=== PATIENT | male | born 1970 | race Caucasian/White ===

== ENCOUNTER 2022-11-07 17:35 | Emergency (ER) | payer BC ==
[2022-11-07] MEDS ORDERED: Adacel Vial IM ONE ×2 (17:48→17:59)
[2022-11-07 17:53] VITALS: BP 166/96; PULSE 79; RESP 20; TEMP 97.9; O2SAT 96
--- NOTE | 2022-11-07 18:16 | ERPHSYRPT ---
- History of Present Illness Source: patient, other () Exam Limitations: no limitations Patient Subjective Stated Complaint: C/O hand injury with a bow at home. Patient states he put his hand/fingers in front of the string. Triage Nursing Assessment: Patient ambulated back to ER with a stockinette to right hand. Ice pack under stockinette. Stockinette and ice pack removed. Middle digit of right hand noted to have a bruised area measuing 3cm X 0.5cm with a small open area and a blood blister present in the bruising. Sensation to fingers intact. Physician History: 52 yo WM w R/L 3rd digit pain after getting hit by crossbow string. Pt has a superficial abrasion on his R 3rd PIP and has mild pain L 3rd PIP. He is R handed and denies other injuries. He will need a Tdap in the ER. Pain is moderate. Occurred: just prior to arrival Method of Injury: direct blow (Crossbow string vs hand) Quality: constant Severity of Pain-Max: severe Severity of Pain-Current: moderate Extremities Pain Location: 3rd finger: bilateral Modifying Factors: Improves With: movement Associated Symptoms: none Allergies/Adverse Reactions: No Known Drug Allergies Allergy (Verified 11/07/22 17:39) Home Medications: Losartan/Hydrochlorothiazide [Losartan-Hctz 100-12.5 mg Tab] 1 tab PO DAILY 11/07/22 [History] Hx Tetanus, Diphtheria Vaccination/Date Given: No (not tetanus) Hx Influenza Vaccination/Date Given: No Hx Pneumococcal Vaccination/Date Given: No Immunizations Up to Date: Yes Travel Risk - International Travel Have you traveled outside of the country in past 3 weeks: No - Coronavirus Screening Are you exhibiting any of the following symptoms?: No Close contact with a COVID-19 positive Pt in past 14-21 Days: No - Vaccine Status Have you recieved a Covid-19 vaccination: No - Review of Systems Constitutional: No Symptoms Eyes: No Symptoms Ears, Nose, & Throat: No Symptoms Respiratory: No Symptoms Cardiac: No Symptoms Abdominal/Gastrointestinal: No Symptoms Genitourinary Symptoms: No Symptoms Skin: No Symptoms Neurological: No Symptoms Psychological: No Symptoms Endocrine: No Symptoms Hematologic/Lymphatic: No Symptoms Immunological/Allergic: Pollen Allergy - Past Medical History Pertinent Past Medical History: Yes Cardiac History: Hypertension Endocrine Medical History: Diabetes Type II - Past Surgical History Past Surgical History: Yes Other Surgical History: left ankle surgery - Social History Smoking Status: Never smoker Exposure to second hand smoke: No Drug Use: none Patient Lives Alone: No - Nursing Vital Signs Nursing Vital Signs: Initial Vital Signs Temperature 97.9 F 11/07/22 17:41 Pulse Rate 79 11/07/22 17:41 Respiratory Rate 20 11/07/22 17:41 Blood Pressure 166/96 11/07/22 17:41 O2 Sat by Pulse Oximetry 96 11/07/22 17:41 Pain Scale Pain Intensity 5 Hypertensive - Physical Exam General Appearance: no apparent distress Eyes, Ears, Nose, Throat Exam: normal ENT inspection, TMs normal, pharynx normal, moist mucous membranes Neck Exam: normal inspection, non-tender, supple, full range of motion, No Brudzinski, No Kernig's, No meningismus, No carotid bruit Cardiovascular/Respiratory Exam: normal breath sounds, regular rate/rhythm, heart sounds normal Abdominal Exam: non-tender, soft, no organomegaly Back Exam: normal inspection, normal range of motion, No CVA tenderness, No vertebral tenderness Shoulder Exam: normal inspection, non-tender, no evidence of injury Elbow/Forearm Exam: normal inspection, non-tender, no evidence of injury Wrist Exam: normal inspection, non-tender, no evidence of injury Hand Exam: No no evidence of injury (Superficial abrasion-laceration R 3rd dorsal PIP, good distal capillary return and sensation/L 3rd dorsal 2nd phalange w mild TTP, no edema or deformity, good distal capillary return and sensation) Neuro/Tendon Exam: normal sensation, normal motor functions, normal tendon functions, responds to pain, no evidence tendon injury, No motor deficit, No sensory deficit Mental Status Exam: alert, oriented x 3, cooperative Skin Exam: normal color, warm, dry SpO2 Interpretation: normal SpO2: 96 O2 Delivery: Room Air - Course Nursing assessment & vital signs reviewed: Yes - Radiology Exams Hand X-ray Interpretation: Interpreted by me (B hands neg for Fx) Ordered Tests: Active Orders 24 hr Category Date Time Status HAND (MINIMUM 3 VIEWS) Stat Exams 11/07/22 17:46 Completed HAND (MINIMUM 3 VIEWS) Stat Exams 11/07/22 17:47 Completed Medication Summary Discontinued Medications Generic Name Dose Route Start Last Admin Trade Name Freq PRN Reason Stop Dose Admin Diphtheria/Tetanus/Acell Pertussis 0.5 ml 11/07/22 17:48 11/07/22 18:01 Tdap --Diph,Pertuss(Acell),Tet Vac/Pf 0.5 Ml Vial IM 11/07/22 17:49 0.5 ml .ONCE ONE Administration Diphtheria/Tetanus/Acell Pertussis Confirm 11/07/22 17:59 Tdap --Diph,Pertuss(Acell),Tet Vac/Pf 0.5 Ml Vial Administered 11/07/22 18:00 Dose 0.5 ml IM .STK-MED ONE Ketorolac Tromethamine 30 mg 11/07/22 18:24 11/07/22 18:29 Ketorolac Tromethamine 30 Mg/Ml Inj IM 11/07/22 18:25 30 mg STAT ONE Administration Ketorolac Tromethamine Confirm 11/07/22 18:29 Ketorolac Tromethamine 30 Mg/Ml Inj Administered 11/07/22 18:30 Dose 30 mg .ROUTE .STK-MED ONE - Progress Progress Note: 11/07/22 23:08 Nursing note and vital signs reviewed No food or housing insecurities noted Additional history per B hand XR read per ER physician and results shared w pt/ 11/07/22 23:09 Tdap given 30mg IM toradol Superficial abrasion/Laceration cleansed and dressed per nursing/NVI Counseled pt/family regarding: diagnosis, need for follow-up, rad results Medical Desision Making - Independent Historian Additional History obtained from: Spouse - Diagnostic Testing Radiological Interpretation: Interpreted by me - Risk of complications Low Risk: Low risk of morbidity from additional dx testing or treatment - Departure Departure Disposition: Home Clinical Impression: Contusion of finger of left hand, Contusion of finger of right hand, Abrasion of finger of right hand Condition: Fair Critical Care Time: No Referrals: IVAN MAGALLON MD [Primary Care Provider] - Follow up/PCP as directed Instructions: Common Finger Injuries (DC) Additional Instructions: Wash abrasion twice a day with soap/water Watch for signs of infection-increasing redness/any pus/increasing swelling/temperature greater than 100.5 Ice for 12-24 hours Motrin/Tylenol for pain
[2022-11-07] MEDS ORDERED: TORAdol 30 mg Injection IM ONE (18:24)
[2022-11-07] MEDS ORDERED: TORAdol 30 mg Injection ONE (18:29)
--- NOTE | 2022-11-07 19:00 | XRAY ---
Indication: Pain following trauma. Comparison: None 3 view right hand obtained. No bony, articular, or soft tissue abnormalities.
--- NOTE | 2022-11-07 19:02 | XRAY ---
Indication: Pain following trauma. Comparison: None 3 view left hand obtained. No bony, articular, or soft tissue abnormalities.
== END 2022-11-07 18:48 | disposition home or self-care (01) ==
LOC: ED 17:35
DX: S60.032A Contusion of left middle finger without damage to nail, initial encounter (principal); S60.412A Abrasion of right middle finger, initial encounter; W20.8XXA Other cause of strike by thrown, projected or falling object, initial encounter; I10 Essential (primary) hypertension; E11.9 Type 2 diabetes mellitus without complications; Z79.899 Other long term (current) drug therapy; Z28.310 Unvaccinated for COVID-19; Z23 Encounter for immunization
CPT/HCPCS: 73130; 90471; 90715; 96372; 99283; J1885

== ENCOUNTER 2023-08-05 11:13 | Emergency (ER) | payer BC ==
[2023-08-05 11:23] VITALS: RESP 24; TEMP 96.9
[2023-08-05] MEDS ORDERED: MORPHINE SULFATE 4 MG INJ ONE (11:49)
[2023-08-05] MEDS: MORPHINE SULFATE 4 MG INJ IM ONE (11:51)
--- NOTE | 2023-08-05 13:05 | XRAY ---
CLINICAL HISTORY: fall COMPARISON: None TECHNIQUE: Xray of right ankle AP, lateral and oblique views. FINDINGS: Traumatic changes/fractures of the visualized distal end of the tibia and fibula are noted, interfixed with plate and screws. No evidence of device breakage, loosening, or infection. The bony fragment is noted along margin of the medial malleolus. Mild soft tissue swelling is noted. A plantar calcaneal spur is noted with its possible fracture needs to be excluded. A spur at the insertion of the Achilles tendon also noted. A round radiolucency with a smooth, well-defined contour is noted in the calcaneus, most likely related to previous surgery. No dislocation seen. A moderate osteophyte is noted along the superior aspects of the navicular bone. IMPRESSION: 1. Traumatic changes/fractures of the visualized distal end of the tibia and fibula are noted, interfixed with plate and screws. No evidence of device breakage, loosening, or infection. 2. The bony fragment is noted along margin of medial malleolus. A plantar calcaneal spur is noted with its possible acute fracture needs to be excluded. 3. Mild soft tissue swelling is noted. 4. Differentiation of new versus old fractures cannot be made, as no previous imaging is available for comparison. Clinical correlation and comparison with previous imaging is suggested. DISCLAIMER:A subtle bone abnormality or fracture may not be readily apparent on x-rays, thus clinical correlation and further imaging including follow up CT, MRI, or follow up x-rays are advised as needed. Electronically Signed by: Janelle Garcia MD. (08/05/2023 13:02:33 EDT)
[2023-08-05 13:17] VITALS: O2SAT 96
--- NOTE | 2023-08-05 13:58 | XRAY ---
CLINICAL HISTORY: fall COMPARISON: None TECHNIQUE: Xray right lower leg lateral view. FINDINGS: Traumatic changes/fractures are noted in the distal tibia and fibula interfixed with plate and screws. No loosening or break of internal fixation identified. The differentiation between the new versus prior fractures cannot be made as no previous imaging is provided for comparison. A well-defined, area of radiolucency is identified in the diaphysis of the tibia, suggestive of previous surgery. Calcified enthesophytes at the quadriceps femoris tendon insertion are noted. Otherwise, no fracture or bony abnormality is seen. Soft tissues appear unremarkable. IMPRESSION: 1. Traumatic changes/fractures are noted in the distal tibia and fibula interfixed with plate and screws. No loosening or break of internal fixation identified. 2. The differentiation between the new versus prior fractures cannot be made as no previous imaging is provided for comparison. Clinical correlation and comparison with previous studies suggested. 3. Calcified enthesophytes at the quadriceps femoris tendon insertion are noted, suggestive of tendinitis. DISCLAIMER:A subtle bone abnormality or fracture may not be readily apparent on x-rays, thus clinical correlation and further imaging including follow up CT, MRI, or follow up x-rays are advised as needed. Electronically Signed by: Janelle Garcia MD. (08/05/2023 13:54:14 EDT)
[2023-08-05 14:01] VITALS: BP 148/81; PULSE 68
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
== END 2023-08-05 14:26 | disposition home or self-care (01) ==
LOC: ED 11:13
DX: S92.001A Unspecified fracture of right calcaneus, initial encounter for closed fracture (principal); M25.571 Pain in right ankle and joints of right foot; W18.39XA Other fall on same level, initial encounter; Y92.321 Football field as the place of occurrence of the external cause; I10 Essential (primary) hypertension; E11.9 Type 2 diabetes mellitus without complications; Z79.891 Long term (current) use of opiate analgesic; Z79.85 Long-term (current) use of injectable non-insulin antidiabetic drugs; Z79.899 Other long term (current) drug therapy
CPT/HCPCS: 73590; 73610; 96372; 99283; J2270

== ENCOUNTER 2023-11-21 18:00 | Inpatient (IN) | payer BC, OTHER ==
[2023-11-21 21:43] LABS: Absolute Neutrophil Ct (ANC) 10.15 x10^3/uL (1.78-5.38); BASOPHIL % 0.2 % (0.2-1.2); Basophil (Absolute #) 0.03 x10^3/uL (0.01-0.08); Eosinophil % 0.2 % (0.8-7.0); Eosinophil (Absolute #) 0.03 x10^3/uL (0.04-0.54); Hematocrit 41.9 % (40.1-51.0); Hemoglobin 13.9 g/dL (13.7-17.5); IMMATURE GRAN # 0.06 x10^3u/L (0.001-0.031); IMMATURE GRAN % 0.5 % (0.001-0.429); Lymphocyte (Absolute #) 1.72 x10^3/uL (1.32-3.57); Lymphocytes % 13.1 % (21.8-53.1); Mean Cell Volume 87.7 fL (79.0-92.2); Mean Corpuscular Hemoglobin 29.1 pg (25.7-32.2); Mean Corpuscular Hgb Concent. 33.2 g/dL (32.3-36.5); Mean Platelet Volume 12.1 fL (9.4-12.4); Monocyte (Absolute #) 1.15 x10^3/uL (0.30-0.82); Monocytes % 8.8 % (5.3-12.2); Neutrophil % 77.2 % (34.0-67.9); Platelet Count 163 x10^3/uL (163-337); Red Blood Count 4.78 x10^6/uL (4.63-6.08); Red Cell Distribution Width 12.7 % (11.6-14.4); White Blood Count 13.1 x10^3/uL (4.23-9.07)
[2023-11-21] MEDS ORDERED: PIPERACILLIN/TAZOBACTAM IV ONE (21:44)
[2023-11-21] MEDS ORDERED: Sodium Chloride 100ML MINI-BAG PLUS 100 ML IV ONE (21:45)
[2023-11-21] MEDS: PIPERACILLIN/TAZOBACTAM 3.375 GM in Sodium Chloride 100ML MINI-BAG PLUS 100 ML IV ONE (21:50)
[2023-11-21] MEDS ORDERED: Xylocaine-Mpf 2% 5 Ml Vial ONE (21:52)
[2023-11-21 21:56] LABS: ALBUMIN 4.5 g/dL (3.5-5.0); ANION GAP 15.6 MEQ/L (5-15); BILIRUBIN,TOTAL 1.5 mg/dL (0.2-1.3); Calcium 9.6 mg/dL (8.4-10.2); Creatinine 1 1.06 mg/dL (0.66-1.25); Potassium 3.6 mmol/L (3.5-5.1); Total Protein 8.1 g/dL (6.3-8.2)
[2023-11-21] MEDS ORDERED: VANCOMYCIN 2 GRAM/400 ML BAG 2 GM/400 ML PIGGYBACK IV ONE (22:26)
[2023-11-21] MEDS: VANCOMYCIN 2 GRAM/400 ML BAG 2 GM/400 ML PIGGYBACK IV ONE (22:28)
--- NOTE | 2023-11-21 22:42 | ERPHSYRPT ---
- History of Present Illness Time Seen by Provider: 11/21/23 18:55 Source: patient Exam Limitations: no limitations Patient Subjective Stated Complaint: Pt states "I have had allot wrong with my right ankle but three days ago it started to turn red and swell and get hot and now I am running a fever too." Triage Nursing Assessment: PT presented alert and oriented X 3, skin pwd. PT right ankle red, swollen warm tender Physician History: Patient is a 53-year-old male presents to the emergency department for evaluation of suspected right ankle cellulitis. Patient states symptoms started approximately 3 days ago. The area became tender red swollen. Patient experienced objective fever. Patient reports the symptoms progressed over the next 3 days. No trauma. No calf pain. Patient symptoms are mild to moderate i n intensity. Palpation to the involved area reproduces pain. Pain improved with rest. Patient otherwise feels well. He voices no other complaints or concerns at this time. No active pain during exam. Pain occurs more so during palpation Portions of this note were created with voice recognition technology. There may be grammatical, spelling, punctuation or sound alike errors Timing/Duration: today Severity: moderate Modifying Factors: Improves With: nothing Associated Symptoms: denies symptoms Allergies/Adverse Reactions: No Known Drug Allergies Allergy (Verified 11/07/22 17:39) Home Medications: Losartan/Hydrochlorothiazide [Losartan-Hctz 100-12.5 mg Tab] 1 tab PO DAILY 11/07/22 [History] Atorvastatin Calcium 20 mg PO DAILY 08/05/23 [History] Semaglutide [Ozempic] 0.25 mg SQ WEEKLY 08/05/23 [History] Aspirin EC 81 mg [Ecotrin 81 mg] 81 mg PO DAILY 11/21/23 [History] Insulin Glargine,Hum.rec.anlog [Lantus] 100 unit SQ DAILY 11/21/23 [History] Insulin Lispro [Humalog Kwikpen] 100 unit SQ DAILY 11/21/23 [History] Hx Tetanus, Diphtheria Vaccination/Date Given: No (not tetanus) Hx Influenza Vaccination/Date Given: No Hx Pneumococcal Vaccination/Date Given: No Immunizations Up to Date: No Travel Risk - International Travel Have you traveled outside of the country in past 3 weeks: No - Emerging Infectious Disease Are you exhibiting symptoms associated with any current EIDs: No - Review of Systems Constitutional: No Symptoms, No Fever, No Chills Eyes: No Symptoms Ears, Nose, & Throat: No Symptoms Respiratory: No Symptoms, No Cough, No Dyspnea Cardiac: No Symptoms, No Chest Pain, No Edema, No Syncope Abdominal/Gastrointestinal: No Symptoms, No Abdominal Pain, No Nausea, No Vomiting, No Diarrhea Genitourinary Symptoms: No Symptoms, No Dysuria Musculoskeletal: No Symptoms, No Back Pain, No Neck Pain Skin: No Symptoms, No Rash Neurological: No Symptoms, No Dizziness, No Focal Weakness, No Sensory Changes Psychological: No Symptoms Endocrine: No Symptoms Hematologic/Lymphatic: No Symptoms Immunological/Allergic: No Symptoms All Other Systems: Reviewed and Negative - Past Medical History Pertinent Past Medical History: Yes Neurological History: No Pertinent History Cardiac History: High Cholesterol, Hypertension Respiratory History: No Pertinent History Endocrine Medical History: Diabetes Type II Musculoskeletal History: No Pertinent History Other Medical History: PSH: L RAGINI ORIF, R ANKLE ORIF. PMH: LISTED ABOVE - Past Surgical History Past Surgical History: Yes Other Surgical History: left ankle surgery. right ankle - Social History Smoking Status: Never smoker Exposure to second hand smoke: No Drug Use: none Patient Lives Alone: No - Social Determinants of Health Will the patient participate in the screening: Declined to provide - Nursing Vital Signs Nursing Vital Signs: Initial Vital Signs Temperature 100.1 F 11/21/23 18:49 Pulse Rate 104 H 11/21/23 18:49 Respiratory Rate 20 11/21/23 18:49 Blood Pressure 127/75 11/21/23 18:49 O2 Sat by Pulse Oximetry 98 11/21/23 18:49 Pain Scale Pain Intensity 6 - Physical Exam General Appearance: no apparent distress, alert Eye Exam: PERRL/EOMI, eyes nml inspection Ears, Nose, Throat Exam: normal ENT inspection, moist mucous membranes Neck Exam: normal inspection, non-tender, supple, full range of motion Respiratory Exam: normal breath sounds, lungs clear, airway intact, No respiratory distress Cardiovascular Exam: regular rate/rhythm, normal heart sounds, normal peripheral pulses Gastrointestinal/Abdomen Exam: soft, normal bowel sounds, No tenderness, No mass Back Exam: normal inspection, normal range of motion, No CVA tenderness, No vertebral tenderness Extremity Exam: normal inspection, normal range of motion, pelvis stable, other (Area of cellulitis extending from the proximal third of the tibia down to the dorsum of the foot. The area of cellulitis extends circumferentially around the ankle. The involved extremities neurovascular intact distally compartments are soft cap refill less than 2 seconds.) Neurologic Exam: alert, oriented x 3, cooperative, normal mood/affect, sensation nml, No motor deficits Skin Exam: normal color, warm, dry, No rash Lymphatic Exam: No adenopathy SpO2 Interpretation: normal SpO2: 98 O2 Delivery: Room Air - Course Nursing assessment & vital signs reviewed: Yes EKG Interpreted by Me: RATE (95), Sinus Rhythm, NORMAL AXIS, NORMAL INTERVALS, NORMAL QRS - Radiology Exams Ankle X-ray Interpretation: Teleradiologist Report (No acute findings) Ordered Tests: Active Orders 24 hr Category Date Time Status Csm Consultant STAT Care 11/21/23 19:32 Active EKG-ER Only STAT Care 11/21/23 19:30 Active IV Insertion STAT Care 11/21/23 19:30 Active Pulse Oximetry (ED) STAT Care 11/21/23 19:30 Active ANKLE (3 VIEWS) Stat Exams 11/21/23 19:35 Completed BLOOD CULTURE Stat Lab 11/21/23 19:31 Received CBC W DIFF Stat Lab 11/21/23 21:40 Completed CMP Stat Lab 11/21/23 21:40 Completed Lactic Acid Stat Lab 11/21/23 19:30 Completed UA W/RFX UR CULTURE Stat Lab 11/21/23 19:31 Ordered Transfer Order Routine Transfer 11/21/23 Ordered Medication Summary Discontinued Medications Generic Name Dose Route Start Last Admin Trade Name Freq PRN Reason Stop Dose Admin Acetaminophen 975 mg 11/21/23 22:55 11/21/23 23:04 Acetaminophen 325 Mg Tablet PO 11/21/23 22:56 975 mg STAT ONE Administration Acetaminophen Confirm 11/21/23 23:02 Acetaminophen 325 Mg Tablet Administered 11/21/23 23:03 Dose 975 mg .ROUTE .STK-MED ONE Vancomycin HCl 2 gm in 400 mls @ 133.333 mls/hr 11/21/23 19:32 11/21/23 22:40 Vancomycin 2 Gram/400 Ml Bag IV 11/21/23 22:31 0 mls/hr STAT ONE 0 mls/hr Infusion Piperacillin Sod/Tazobactam 100 mls @ 200 mls/hr 11/21/23 19:33 11/21/23 21:50 Sod 3.375 gm/ Sodium Chloride IV 11/21/23 20:02 200 mls/hr STAT ONE Administration Sodium Chloride Confirm 11/21/23 21:45 Sodium Chloride 100ml Mini-Bag Plus Administered 11/21/23 21:46 Dose 100 mls @ ud IV .STK-MED ONE Vancomycin HCl Confirm 11/21/23 22:26 Vancomycin 2 Gram/400 Ml Bag Administered 11/21/23 22:27 Dose 2 gm in 400 mls @ ud IV .STK-MED ONE Lidocaine HCl Confirm 11/21/23 21:52 Lidocaine - Mpf 2% 5 Ml Vial Administered 11/21/23 21:53 Dose 5 ml .ROUTE .STK-MED ONE Piperacillin Sod/Tazobactam Sod Confirm 11/21/23 21:44 Piperacillin/Tazobactam Sodium 3.375 Gm Vial Administered 11/21/23 21:45 Dose 3.375 gm IV .STK-MED ONE Lab/Rad Data: Laboratory Result Diagrams 11/21/23 21:40 11/21/23 21:40 Laboratory Results 11/21/23 11/21/23 11/21/23 Range/Units 21:40 21:40 19:30 WBC 13.1 H (4.23-9.07) x10^3/uL RBC 4.78 (4.63-6.08) x10^6/uL Hgb 13.9 (13.7-17.5) g/dL Hct 41.9 (40.1-51.0) % MCV 87.7 (79.0-92.2) fL MCH 29.1 (25.7-32.2) pg MCHC 33.2 (32.3-36.5) g/dL RDW 12.7 (11.6-14.4) % Plt Count 163 (163-337) x10^3/uL MPV 12.1 (9.4-12.4) fL Gran % 77.2 H (34.0-67.9) % Immature Gran % (Auto) 0.5 H (0.001-0.429) % Nucleat RBC Rel Count 0.0 (0.00-0.2) % Eos # (Auto) 0.03 L (0.04-0.54) x10^3/uL Immature Gran # (Auto) 0.06 H (0.001-0.031) x10^3u/L Absolute Lymphs (auto) 1.72 (1.32-3.57) x10^3/uL Absolute Monos (auto) 1.15 H (0.30-0.82) x10^3/uL Absolute Nucleated RBC 0.00 (0.00-0.012) x10^3u/L Lymphocytes % 13.1 L (21.8-53.1) % Monocytes % 8.8 (5.3-12.2) % Eosinophils % 0.2 L (0.8-7.0) % Basophils % 0.2 (0.2-1.2) % Absolute Granulocytes 10.15 H (1.78-5.38) x10^3/uL Basophils # 0.03 (0.01-0.08) x10^3/uL Sodium 133 L (135-145) mmol/L Potassium 3.6 (3.5-5.1) mmol/L Chloride 95 L (98-107) mmol/L Carbon Dioxide 26 (22-30) mmol/L Anion Gap 15.6 H (5-15) MEQ/L BUN 18 (9-20) mg/dL Creatinine 1.06 (0.66-1.25) mg/dL Estimated GFR 85.0 ML/MIN Glucose 169 H (74-106) mg/dL Lactic Acid 2.2 H (0.4-2.0) Calcium 9.6 (8.4-10.2) mg/dL Total Bilirubin 1.50 H (0.2-1.3) mg/dL AST 27 (17-59) U/L ALT 32 (0-50) U/L Alkaline Phosphatase 80 (38-126) U/L Serum Total Protein 8.1 (6.3-8.2) g/dL Albumin 4.5 (3.5-5.0) g/dL - Progress Progress: improved Progress Note: Patient accepted by Dr. Eleno Guerrero at 11 PM. 11/21/23 22:59 53-year-old male ORIF in June 2023 secondary to a comminuted ankle fracture. Patient observed redness and swelling to the right ankle over the past 3 days. Symptoms have been progressive with subjective fevers. Physical exam reveals cellulitis stemming from the anterior aspect of the leg to the dorsum of the foot. The cellulitis appears inferential around the ankle. The involved extremities neurovascular tact distally compartments are soft cap refill less than 2 seconds. Laboratory workup reveals a leukocytosis. Lactic acid 2.2. Repeat lactic acid pending. Blood cultures obtained. Patient received vancomycin and Zosyn. In light of patient's hardware we will treat patient aggressively to minimize hematogenous spread and seeding of the hardware. Ankle x-ray shows healing bone. No subcutaneous gas. No acute fractures or dislocations Plan of care discussed with patient. He agrees to admission at [facility] for further evaluation and treatment. Portions of this note were created with voice recognition technology. There may be grammatical, spelling, punctuation or sound alike errors Complexity problem addressed is moderate acute complicated. No critical care time. Complex of data reviewed and analyzed is extensive. Management discussed with hospitalist.. Test ordered chest reviewed results analyzed and correlated clinically with history and physical exam. Risk of complication and or risk of morbidity/mortality patient management is high. Patient requires hospitalization for further evaluation and treatment. Vital stable. Time spent to admit patient approximately 20 minutes. Plan of care established for shared decision making. No social determinants of health present to impede follow-up. Portions of this note were created with voice recognition technology. There may be grammatical, spelling, punctuation or sound alike errors 11/21/23 23:14 11/21/23 23:17 Counseled pt/family regarding: lab results, diagnosis, rad results - Departure Departure Disposition: Observation Clinical Impression: Cellulitis, Leukocytosis, Lactic acidosis, Dehydration, Fever Condition: Stable Critical Care Time: No Referrals: IVAN MAGALLON MD [Primary Care Provider] - Follow up/PCP as directed
--- NOTE | 2023-11-21 22:47 | XRAY ---
Indication: Cellulitis. Comparison: August 05, 2023 3 view right ankle demonstrates interval healing/healed distal tibia and fibula fractures with grossly intact visualized orthopedic hardware. Again incidental small posterior/plantar heel spurs. No new bony, articular, or soft tissue abnormalities.
[2023-11-21] MEDS ORDERED: TYLENOL 325 MG ONE (23:02)
--- NOTE | 2023-11-21 23:02 | PCM.HP ---
History of Present Illness - Chief Complaint Chief Complaint: Right ankle cellulitis History of Present Illness: is a 53 year old male who presents with progressive right ankle pain, redness and swelling, and fevers consistent with a right ankle cellulitis. ED wants to admit due to hardware in the region and no ultrasound available overnight. Pt denies nausea, vomiting, diarrhea, chills, cough. - Review of Systems Constitutional: No Fever, No Chills Eyes: No Symptoms Ears, Nose, & Throat: No Symptoms Respiratory: No Cough, No Short Of Breath Cardiac: No Chest Pain, No Edema, No Syncope Abdominal/Gastrointestinal: No Abdominal Pain, No Nausea, No Vomiting, No Diarrhea Genitourinary Symptoms: No Dysuria Musculoskeletal: No Back Pain, No Neck Pain Skin: No Rash Neurological: No Dizziness, No Focal Weakness, No Sensory Changes Psychological: No Symptoms Endocrine: No Symptoms Hematologic/Lymphatic: No Symptoms Immunological/Allergic: No Symptoms Medications & Allergies Home Medications: Home Medication List Losartan/Hydrochlorothiazide [Losartan-Hctz 100-12.5 mg Tab] 1 tab PO DAILY 11/07/22 [History Confirmed 11/07/22] Atorvastatin Calcium 20 mg PO DAILY 08/05/23 [History] Semaglutide [Ozempic] 0.25 mg SQ WEEKLY 08/05/23 [History] Aspirin EC 81 mg [Ecotrin 81 mg] 81 mg PO DAILY 11/21/23 [History Confirmed 11/21/23] Insulin Glargine,Hum.rec.anlog [Lantus] 100 unit SQ DAILY 11/21/23 [History Confirmed 11/21/23] Insulin Lispro [Humalog Kwikpen] 100 unit SQ DAILY 11/21/23 [History Confirmed 11/21/23] Allergies/Adverse Reactions: Allergies Allergy/AdvReac Type Severity Reaction Status Date / Time No Known Drug Allergies Allergy Verified 11/07/22 17:39 - Past Medical History Past Medical History: Yes Neurological History: No Pertinent History Cardiac History: High Cholesterol, Hypertension Respiratory History: No Pertinent History Endocrine Medical History: Diabetes Type II Musculoskelatal History: No Pertinent History Comment: PSH: L RAGINI ORIF, R ANKLE ORIF. PMH: LISTED ABOVE - Past Surgical History Past Surgical History: Yes Other Surgical History: left ankle surgery. right ankle - Social History Smoking Status: Never smoker Exposure to second hand smoke: No Alcohol: None Drug Use: none - Social Determinants of Health Will the patient participate in the screening: Declined to provide - Physical Exam Vital Signs: Vital Signs - 24 hr Temp Pulse Resp BP BP Pulse Ox 11/21/23 22:59 98 11/21/23 22:56 101 H 11/21/23 21:45 130/71 94 L 11/21/23 21:31 144/93 96 11/21/23 21:19 98 11/21/23 21:15 99 H 16 133/75 98 11/21/23 21:00 98 H 16 143/83 96 11/21/23 19:30 102 H 18 135/81 99 11/21/23 19:15 143/73 11/21/23 19:00 122/73 11/21/23 18:49 100.1 F 104 H 20 127/75 127/75 95 Results - Labs Lab/Micro Results: Lab Results-Last 24 Hours 11/21/23 11/21/23 11/21/23 Range/Units 19:30 21:40 21:40 WBC 13.1 H (4.23-9.07) x10^3/uL RBC 4.78 (4.63-6.08) x10^6/uL Hgb 13.9 (13.7-17.5) g/dL Hct 41.9 (40.1-51.0) % MCV 87.7 (79.0-92.2) fL MCH 29.1 (25.7-32.2) pg MCHC 33.2 (32.3-36.5) g/dL RDW 12.7 (11.6-14.4) % Plt Count 163 (163-337) x10^3/uL MPV 12.1 (9.4-12.4) fL Gran % 77.2 H (34.0-67.9) % Immature Gran % (Auto) 0.5 H (0.001-0.429) % Nucleat RBC Rel Count 0.0 (0.00-0.2) % Eos # (Auto) 0.03 L (0.04-0.54) x10^3/uL Immature Gran # (Auto) 0.06 H (0.001-0.031) x10^3u/L Absolute Lymphs (auto) 1.72 (1.32-3.57) x10^3/uL Absolute Monos (auto) 1.15 H (0.30-0.82) x10^3/uL Absolute Nucleated RBC 0.00 (0.00-0.012) x10^3u/L Lymphocytes % 13.1 L (21.8-53.1) % Monocytes % 8.8 (5.3-12.2) % Eosinophils % 0.2 L (0.8-7.0) % Basophils % 0.2 (0.2-1.2) % Absolute Granulocytes 10.15 H (1.78-5.38) x10^3/uL Basophils # 0.03 (0.01-0.08) x10^3/uL Sodium 133 L (135-145) mmol/L Potassium 3.6 (3.5-5.1) mmol/L Chloride 95 L (98-107) mmol/L Carbon Dioxide 26 (22-30) mmol/L Anion Gap 15.6 H (5-15) MEQ/L BUN 18 (9-20) mg/dL Creatinine 1.06 (0.66-1.25) mg/dL Estimated GFR 85.0 ML/MIN Glucose 169 H (74-106) mg/dL Lactic Acid 2.2 H (0.4-2.0) Calcium 9.6 (8.4-10.2) mg/dL Total Bilirubin 1.50 H (0.2-1.3) mg/dL AST 27 (17-59) U/L ALT 32 (0-50) U/L Alkaline Phosphatase 80 (38-126) U/L Serum Total Protein 8.1 (6.3-8.2) g/dL Albumin 4.5 (3.5-5.0) g/dL - Radiology Impressions Radiology Exams & Impressions: Radiology Procedures Category Date Time Status ANKLE (3 VIEWS) Stat Exams 11/21/23 19:35 Completed Assessment/Plan (1) Cellulitis Current Visit: Yes Status: Acute Assessment & Plan: 1. Right ankle cellulitis 2. Started in vanc and zosyn 3. US of ankle pending Code(s): L03.90 - CELLULITIS, UNSPECIFIED Telemedicine Encounter - Telemedicine Encounter Telemedicine Encounter: "The entirety of this encounter was performed via Telemedicine" This visit was performed using real-time audio and video connection between my location and thepatients locationwith the assistance of a surrogateat the patients location. Written or verbal consent was obtained from the patient/guardian to perform this visit using[facility] [place] technology. Any patient questions regarding the telemedicine interaction were answered.
[2023-11-21] MEDS: TYLENOL 325 MG PO ONE (23:04)
[2023-11-22 00:49] LABS: Appearance Clear (Clear); Bacteria None Seen /HPF (None Seen); Bilirubin Negative (Negative); Blood Negative (Negative); Epithelial Cells None Seen /HPF (None Seen); Glucose, Urine 250 mg/dL (Negative); Hyaline Casts NONE SEEN /LPF (0-2); Ketones 40 (Negative); Leukocyte Esterase Negative (Negative); Nitrite Negative (Negative); Ph 5.5 (4.6-8.0); Protein,Urine Dip 30 (Negative); RBC 0-2 /HPF (0-5); Specific Gravity >=1.030 (1.005-1.030); WBC 0-2 /HPF (0-5)
[2023-11-22 00:50] LABS: ADD URINE CULTURE? NO (NO)
[2023-11-22] MEDS ORDERED: NON-FORMULARY ITEM (Semaglutide [Ozempic] 1 MG/0.75 ML Pen.Injctr) SQ SCH (01:45)
[2023-11-22] MEDS ORDERED: PIPERACILLIN/TAZOBACTAM IV ONE ×2 (04:18→04:24)
[2023-11-22] MEDS ORDERED: Sodium Chloride 100ML MINI-BAG PLUS 0 ML IV ONE (04:19)
[2023-11-22] MEDS ORDERED: Sodium Chloride 100ML MINI-BAG PLUS 100 ML IV ONE (04:24)
[2023-11-22 05:14] LABS: Absolute Neutrophil Ct (ANC) 10.25 x10^3/uL (1.78-5.38); BASOPHIL % 0.3 % (0.2-1.2); Basophil (Absolute #) 0.04 x10^3/uL (0.01-0.08); Eosinophil % 0.1 % (0.8-7.0); Eosinophil (Absolute #) 0.02 x10^3/uL (0.04-0.54); Hematocrit 39.4 % (40.1-51.0); Hemoglobin 13.3 g/dL (13.7-17.5); IMMATURE GRAN # 0.07 x10^3u/L (0.001-0.031); IMMATURE GRAN % 0.5 % (0.001-0.429); Lymphocyte (Absolute #) 1.92 x10^3/uL (1.32-3.57); Lymphocytes % 14.2 % (21.8-53.1); Mean Cell Volume 85.7 fL (79.0-92.2); Mean Corpuscular Hemoglobin 28.9 pg (25.7-32.2); Mean Corpuscular Hgb Concent. 33.8 g/dL (32.3-36.5); Mean Platelet Volume 12.8 fL (9.4-12.4); Monocyte (Absolute #) 1.23 x10^3/uL (0.30-0.82); Monocytes % 9.1 % (5.3-12.2); Neutrophil % 75.8 % (34.0-67.9); Platelet Count 170 x10^3/uL (163-337); White Blood Count 13.5 x10^3/uL (4.23-9.07)
[2023-11-22] MEDS: PIPERACILLIN/TAZOBACTAM 3.375 GM in Sodium Chloride 100ML MINI-BAG PLUS 100 ML IV SCH (05:24)
--- NOTE | 2023-11-22 05:47 | PCM.NOTE ---
Date and Time: 11/22/23 0535 Subjective Assessment: Mr. Reina is a 53 year old male with a pmhx of DMII, Left and Right ankle ORIF (06/27), HLD, and HTN admitted 11/21/23 for cellulitis of the right ankle. Onset was approximately 3 days prior to admission. Patient reports pain, warmth, fevers, and swelling. Right ankle Xray showing healing/healed distal t ibia/fibula fraxures with orthopedic hardware intact. The cellulitis appears inferential around the ankle. The involved extremities neurovascular tact distally compartments are soft cap refill less than 2 seconds. Patient septic on presentation with tachycardia, fever, lactic acid at 2.2, and leukocytosis with WBC at 13.5. Given vanc/zosyn in ED. 11/22/23: Met with patient bedside. Endorses continued pain to the RLE 6/10 on numerical pain scale. Discussed case with podiatry. Plan for US and bone scan and continuation of vanc and zosyn. Added pain medication. Hypokalemia noted on lab work, will replenish. Denies fever,cough, sob, cp, abdominal pain, BUNDY, dizziness, N/V/D. - Review of Systems Constitutional: No Symptoms Eyes: No Symptoms Ears, Nose, & Throat: No Symptoms Respiratory: No Symptoms Cardiac: No Symptoms Abdominal/Gastrointestinal: No Symptoms Genitourinary Symptoms: No Symptoms Musculoskeletal: Joint Pain (RLE) Skin: Cellulitis (RLE ) Neurological: No Symptoms Psychological: No Symptoms Hematologic/Lymphatic: No Symptoms Immunological/Allergic: No Symptoms Objective Exam General Appearance: no apparent distress Neurologic Exam: alert, oriented x 3, cooperative Skin Exam: other (RLE erythema/edema anterior aspect mid munoz to the dorsum of the foot) Wound Assessment: Skin/Wound Assessment Wound/Incision Assessment Start: 11/22/23 00:00 Text: Status: Active Freq: Q6H Protocol: Document 11/22/23 02:00 ADAM (Rec: 11/22/23 02:18 ADAM [id number]) Wound/Incision Assessment right lower leg Wound Assessment Admission Wound Type cellulitis Wound Stage Non Pressure Wound Drainage Amount None General Appearance Reddened Surrounding Tissue Bright Red,Edematous Comment cellulitis to right lower leg - redness outlined - flat rash to right foot Wound Photo Photo Taken No Eye Exam: PERRL Ears, Nose, Throat Exam: normal ENT inspection Neck Exam: normal inspection Respiratory Exam: normal breath sounds, lungs clear Cardiovascular Exam: regular rate/rhythm, normal heart sounds Gastrointestinal/Abdomen Exam: soft, normal bowel sounds Extremity Exam: inflammation (RLE), pedal edema (RLE) Back Exam: normal inspection Male Genitalia Exam: deferred Rectal Exam: deferred Objective Data Vital Signs: Vital Signs - 24 hr Temp Pulse Resp BP BP Pulse Ox 11/22/23 04:00 97.7 F 83 16 136/71 97 11/22/23 01:07 97.1 F 104 H 17 143/94 95 11/22/23 00:00 96 H 20 126/69 95 11/21/23 23:45 93 H 19 133/65 95 11/21/23 23:30 96 H 19 123/67 95 11/21/23 23:18 98 11/21/23 23:15 96 H 16 121/71 95 11/21/23 23:03 99.1 F 104 H 21 116/59 95 11/21/23 22:56 101 H 11/21/23 21:45 130/71 94 L 11/21/23 21:31 144/93 96 11/21/23 21:19 98 11/21/23 21:15 99 H 16 133/75 98 11/21/23 21:00 98 H 16 143/83 96 11/21/23 19:30 102 H 18 135/81 99 11/21/23 19:15 143/73 11/21/23 19:00 122/73 11/21/23 18:49 100.1 F 104 H 20 127/75 127/75 95 Pain Assessment - Last Documented Pain Intensity 3 Intake and Output: Intake & Output 11/19/23 11/20/23 11/21/23 11/22/23 11:59 11:59 11:59 11:59 Output Total 700 Balance -700 Weight 121.2 kg Lab Results: Lab Results-Last 24 Hours 11/21/23 11/21/23 11/21/23 Range/Units 19:30 21:40 21:40 WBC 13.1 H (4.23-9.07) x10^3/uL RBC 4.78 (4.63-6.08) x10^6/uL Hgb 13.9 (13.7-17.5) g/dL Hct 41.9 (40.1-51.0) % MCV 87.7 (79.0-92.2) fL MCH 29.1 (25.7-32.2) pg MCHC 33.2 (32.3-36.5) g/dL RDW 12.7 (11.6-14.4) % Plt Count 163 (163-337) x10^3/uL MPV 12.1 (9.4-12.4) fL Gran % 77.2 H (34.0-67.9) % Immature Gran % (Auto) 0.5 H (0.001-0.429) % Nucleat RBC Rel Count 0.0 (0.00-0.2) % Eos # (Auto) 0.03 L (0.04-0.54) x10^3/uL Immature Gran # (Auto) 0.06 H (0.001-0.031) x10^3u/L Absolute Lymphs (auto) 1.72 (1.32-3.57) x10^3/uL Absolute Monos (auto) 1.15 H (0.30-0.82) x10^3/uL Absolute Nucleated RBC 0.00 (0.00-0.012) x10^3u/L Lymphocytes % 13.1 L (21.8-53.1) % Monocytes % 8.8 (5.3-12.2) % Eosinophils % 0.2 L (0.8-7.0) % Basophils % 0.2 (0.2-1.2) % Absolute Granulocytes 10.15 H (1.78-5.38) x10^3/uL Basophils # 0.03 (0.01-0.08) x10^3/uL Sodium 133 L (135-145) mmol/L Potassium 3.6 (3.5-5.1) mmol/L Chloride 95 L (98-107) mmol/L Carbon Dioxide 26 (22-30) mmol/L Anion Gap 15.6 H (5-15) MEQ/L BUN 18 (9-20) mg/dL Creatinine 1.06 (0.66-1.25) mg/dL Estimated GFR 85.0 ML/MIN Glucose 169 H (74-106) mg/dL Lactic Acid 2.2 H (0.4-2.0) Calcium 9.6 (8.4-10.2) mg/dL Total Bilirubin 1.50 H (0.2-1.3) mg/dL AST 27 (17-59) U/L ALT 32 (0-50) U/L Alkaline Phosphatase 80 (38-126) U/L Serum Total Protein 8.1 (6.3-8.2) g/dL Albumin 4.5 (3.5-5.0) g/dL Urine Color (Yellow) Urine Appearance (Clear) Urine pH (4.6-8.0) Ur Specific [place] (1.005-1.030) Urine Protein (Negative) Urine Glucose (UA) (Negative) mg/dL Urine Ketones (Negative) Urine Blood (Negative) Urine Nitrite (Negative) Urine Bilirubin (Negative) Urine Urobilinogen (0.2) mg/dL Ur Leukocyte Esterase (Negative) U Hyaline Cast (Auto) (0-2) /LPF Urine Microscopic RBC (0-5) /HPF Urine Microscopic WBC (0-5) /HPF Ur Epithelial Cells (None Seen) /HPF Urine Bacteria (None Seen) /HPF Urine Culture Reflexed (NO) 11/22/23 11/22/23 Range/Units 00:26 05:00 WBC 13.5 H (4.23-9.07) x10^3/uL RBC 4.60 L (4.63-6.08) x10^6/uL Hgb 13.3 L (13.7-17.5) g/dL Hct 39.4 L (40.1-51.0) % MCV 85.7 (79.0-92.2) fL MCH 28.9 (25.7-32.2) pg MCHC 33.8 (32.3-36.5) g/dL RDW 13.0 (11.6-14.4) % Plt Count 170 (163-337) x10^3/uL MPV 12.8 H (9.4-12.4) fL Gran % 75.8 H (34.0-67.9) % Immature Gran % (Auto) 0.5 H (0.001-0.429) % Nucleat RBC Rel Count 0.0 (0.00-0.2) % Eos # (Auto) 0.02 L (0.04-0.54) x10^3/uL Immature Gran # (Auto) 0.07 H (0.001-0.031) x10^3u/L Absolute Lymphs (auto) 1.92 (1.32-3.57) x10^3/uL Absolute Monos (auto) 1.23 H (0.30-0.82) x10^3/uL Absolute Nucleated RBC 0.00 (0.00-0.012) x10^3u/L Lymphocytes % 14.2 L (21.8-53.1) % Monocytes % 9.1 (5.3-12.2) % Eosinophils % 0.1 L (0.8-7.0) % Basophils % 0.3 (0.2-1.2) % Absolute Granulocytes 10.25 H (1.78-5.38) x10^3/uL Basophils # 0.04 (0.01-0.08) x10^3/uL Sodium (135-145) mmol/L Potassium (3.5-5.1) mmol/L Chloride (98-107) mmol/L Carbon Dioxide (22-30) mmol/L Anion Gap (5-15) MEQ/L BUN (9-20) mg/dL Creatinine (0.66-1.25) mg/dL Estimated GFR ML/MIN Glucose (74-106) mg/dL Lactic Acid (0.4-2.0) Calcium (8.4-10.2) mg/dL Total Bilirubin (0.2-1.3) mg/dL AST (17-59) U/L ALT (0-50) U/L Alkaline Phosphatase (38-126) U/L Serum Total Protein (6.3-8.2) g/dL Albumin (3.5-5.0) g/dL Urine Color Yellow (Yellow) Urine Appearance Clear (Clear) Urine pH 5.5 (4.6-8.0) Ur Specific [place] >=1.030 A (1.005-1.030) Urine Protein 30 (Negative) Urine Glucose (UA) 250 A (Negative) mg/dL Urine Ketones 40 A (Negative) Urine Blood Negative (Negative) Urine Nitrite Negative (Negative) Urine Bilirubin Negative (Negative) Urine Urobilinogen 1.0 A (0.2) mg/dL Ur Leukocyte Esterase Negative (Negative) U Hyaline Cast (Auto) NONE SEEN (0-2) /LPF Urine Microscopic RBC 0-2 (0-5) /HPF Urine Microscopic WBC 0-2 (0-5) /HPF Ur Epithelial Cells None Seen (None Seen) /HPF Urine Bacteria None Seen (None Seen) /HPF Urine Culture Reflexed NO (NO) Radiology Exams: Radiology Procedures Category Date Time Status ANKLE (3 VIEWS) Stat Exams 11/21/23 19:35 Completed Assessment/Plan (1) Sepsis Current Visit: Yes Status: Acute Assessment & Plan: -Meets criteria with elevated WBC, fever, tachycardia, elevated LA, and known source of infection - cellulitis -Vanc/zosyn started in ED -repeat LA when able - patient hard stick refused additional blood draw -UA negative -IVF (2) Cellulitis Current Visit: Yes Status: Acute Assessment & Plan: -Vanc/zosyn initiated- will continue -culture any open wounds -Blood cultures pending -ganesh borders -Podiatry consulted agree with plan for bone scan/US - continue vanc/zosyn -US -podiatry consult -Xray of right ankle showing healing/healed distal tibia/fibula fractures with orthopedic hardware intact -ganesh borders -elevate affected limb Code(s): L03.90 - CELLULITIS, UNSPECIFIED (3) HTN (hypertension) Current Visit: Yes Status: Acute Assessment & Plan: -stable continue home meds Code(s): I10 - ESSENTIAL (PRIMARY) HYPERTENSION (4) HLD (hyperlipidemia) Current Visit: Yes Status: Acute Assessment & Plan: -continue statin Code(s): E78.5 - HYPERLIPIDEMIA, UNSPECIFIED (5) Type 2 diabetes mellitus Current Visit: Yes Status: Acute Assessment & Plan: -SSI/glargine -ADA diet -accuchecks -A1c at 9.11 -discussed the importance of good glycemic control for healing VTE: lovenox PPI: Protonix Dispo: 2-3 days
[2023-11-22 05:48] LABS: ANION GAP 16.2 MEQ/L (5-15); Calcium 9.3 mg/dL (8.4-10.2); Creatinine 1 0.95 mg/dL (0.66-1.25); EST GLOMERULAR FILTRATION RATE 96.9 ML/MIN; Potassium 3.4 mmol/L (3.5-5.1)
[2023-11-22] MEDS: TYLENOL 325 MG PO ONE (06:21)
[2023-11-22] MEDS ORDERED: MEDICATION INTERVENTION MC SCH (07:00)
[2023-11-22] MEDS: Sodium Chloride 0.9% 1000 ML 1,000 ML IV SCH (07:49)
[2023-11-22] MEDS: Klor Con PO SCH (07:49)
[2023-11-22] MEDS: HYDRODIURIL PO SCH (09:17)
[2023-11-22] MEDS: HUMALOG SQ PRN (09:17)
[2023-11-22] MEDS: COZAAR PO SCH (09:17)
[2023-11-22] MEDS: NORCO 5/325 MG PO PRN (09:17)
[2023-11-22] MEDS: ECOTRIN 81 MG PO SCH (09:18)
[2023-11-22] MEDS: ZOCOR 20MG PO SCH (09:18)
[2023-11-22] MEDS ORDERED: Zofran 4 MG/2 ML VIAL IV PRN (09:45)
[2023-11-22] MEDS: MORPHINE SULFATE 2 MG INJ IV PRN (09:49)
[2023-11-22] MEDS ORDERED: NON-FORMULARY ITEM (Losartan/Hydrochlorothiazide [Losartan-Hctz 100-12.5 Mg Tab] 1 EACH Ta PO SCH (10:00)
[2023-11-22] MEDS ORDERED: NON-FORMULARY ITEM (Atorvastatin Calcium [Atorvastatin Calcium] 20 MG Tablet) PO SCH (10:00)
[2023-11-22] MEDS: PHARMACY DOSING REQUIRED: VANCOMYCIN IV STA (10:01)
[2023-11-22] MEDS: PROTONIX 40 MG IV IV SCH (10:19)
[2023-11-22] MEDS: VANCOMYCIN 2 GRAM/400 ML BAG 2 GM/400 ML PIGGYBACK IV SCH (10:20)
[2023-11-22] MEDS: ENOXAPARIN SODIUM SQ SCH (12:31)
--- NOTE | 2023-11-22 15:30 | PCM.CONS ---
Podiatry HPI - Consult Consulting Provider: KATHRINE MAHMOOD DPM - HPI History of Present Illness: is a 53 year old male with recent hx in May of Pilon fracture to the right lower extremity falling approximately 6 feet out of a blanco. Patient indicates he was seen by Dr. Carrera in [facility] who preformed a staged procedure for external fixation spanning the fracture and then definitive fixation approximately 12 days later. Patient progressed without complication up until 3 days ago where 1 month after resuming weight bearing there was immense pain and leg was solitario red. Patient presented to ED and was admitted for RLE cellulitis. Patient currently on Vancomycin and zosyn with no obvious open wounds or draining. incisions are co apt. Medications & Allergies Home Medications: Home Medication List Losartan/Hydrochlorothiazide [Losartan-Hctz 100-12.5 mg Tab] 1 tab PO DAILY 11/07/22 [History Confirmed 11/22/23] Atorvastatin Calcium 20 mg PO DAILY 08/05/23 [History Confirmed 11/22/23] Aspirin EC 81 mg [Ecotrin 81 mg] 81 mg PO DAILY 11/21/23 [History Confirmed 11/22/23] Insulin Glargine,Hum.rec.anlog [Lantus] 50 unit SQ HS 11/21/23 [History Confirmed 11/22/23] Insulin Lispro [Humalog Kwikpen] 50 unit SQ BIDWM 11/21/23 [History Confirmed 11/22/23] Semaglutide [Ozempic] 1 mg SQ WEEKLY 11/22/23 [History Confirmed 11/22/23] Allergies/Adverse Reactions: Allergies Allergy/AdvReac Type Severity Reaction Status Date / Time No Known Drug Allergies Allergy Verified 11/07/22 17:39 - Past Medical History Past Medical History: Yes Neurological History: No Pertinent History ENT History: No Pertinent History Cardiac History: High Cholesterol, Hypertension Respiratory History: No Pertinent History Endocrine Medical History: Diabetes Type II Musculoskelatal History: No Pertinent History GI Medical History: No Pertinent History History: No Pertinent History Pyscho-Social History: No Pertinent History Male Reproductive Disorders: No Pertinent History Comment: PSH: L RAGINI ORIF, R ANKLE ORIF. PMH: LISTED ABOVE - Past Surgical History Past Surgical History: Yes Neuro Surgical History: No Pertinent History Cardiac History: No Pertinent History Respiratory Surgery: No Pertinent History GI Surgical History: No Pertinent History Genitourinary Surgical Hx: No Pertinent History Musculskeletal Surgical Hx: No Pertinent History Male Surgical History: No Pertinent History Other Surgical History: left ankle surgery. right ankle - Social History Smoking Status: Never smoker Exposure to second hand smoke: No Alcohol: None Drug Use: none - Social Determinants of Health Will the patient participate in the screening: Declined to provide Physical Exam - Vascular Peripheral Pulses: Posterior tibialis: 2+, Dorsalis-Pedis: 2+ Capillary Refill Time: < 3 seconds Hair Growth: Symmetrical and Bilateral Varicosities: Negtive - Narrative Narrative Physical Exam: Podiatry Physical Exam Results - Labs Lab/Micro Results: Lab Results-Last 24 Hours 11/21/23 11/21/23 11/21/23 Range/Units 19:30 21:40 21:40 WBC 13.1 H (4.23-9.07) x10^3/uL RBC 4.78 (4.63-6.08) x10^6/uL Hgb 13.9 (13.7-17.5) g/dL Hct 41.9 (40.1-51.0) % MCV 87.7 (79.0-92.2) fL MCH 29.1 (25.7-32.2) pg MCHC 33.2 (32.3-36.5) g/dL RDW 12.7 (11.6-14.4) % Plt Count 163 (163-337) x10^3/uL MPV 12.1 (9.4-12.4) fL Gran % 77.2 H (34.0-67.9) % Immature Gran % (Auto) 0.5 H (0.001-0.429) % Nucleat RBC Rel Count 0.0 (0.00-0.2) % Eos # (Auto) 0.03 L (0.04-0.54) x10^3/uL Immature Gran # (Auto) 0.06 H (0.001-0.031) x10^3u/L Absolute Lymphs (auto) 1.72 (1.32-3.57) x10^3/uL Absolute Monos (auto) 1.15 H (0.30-0.82) x10^3/uL Absolute Nucleated RBC 0.00 (0.00-0.012) x10^3u/L Lymphocytes % 13.1 L (21.8-53.1) % Monocytes % 8.8 (5.3-12.2) % Eosinophils % 0.2 L (0.8-7.0) % Basophils % 0.2 (0.2-1.2) % Absolute Granulocytes 10.15 H (1.78-5.38) x10^3/uL Basophils # 0.03 (0.01-0.08) x10^3/uL Sodium 133 L (135-145) mmol/L Potassium 3.6 (3.5-5.1) mmol/L Chloride 95 L (98-107) mmol/L Carbon Dioxide 26 (22-30) mmol/L Anion Gap 15.6 H (5-15) MEQ/L BUN 18 (9-20) mg/dL Creatinine 1.06 (0.66-1.25) mg/dL Estimated GFR 85.0 ML/MIN Glucose 169 H (74-106) mg/dL Hemoglobin A1c (4.5-6.0) % Lactic Acid 2.2 H (0.4-2.0) Calcium 9.6 (8.4-10.2) mg/dL Magnesium (1.6-2.3) mg/dL Total Bilirubin 1.50 H (0.2-1.3) mg/dL AST 27 (17-59) U/L ALT 32 (0-50) U/L Alkaline Phosphatase 80 (38-126) U/L Serum Total Protein 8.1 (6.3-8.2) g/dL Albumin 4.5 (3.5-5.0) g/dL Urine Color (Yellow) Urine Appearance (Clear) Urine pH (4.6-8.0) Ur Specific [place] (1.005-1.030) Urine Protein (Negative) Urine Glucose (UA) (Negative) mg/dL Urine Ketones (Negative) Urine Blood (Negative) Urine Nitrite (Negative) Urine Bilirubin (Negative) Urine Urobilinogen (0.2) mg/dL Ur Leukocyte Esterase (Negative) U Hyaline Cast (Auto) (0-2) /LPF Urine Microscopic RBC (0-5) /HPF Urine Microscopic WBC (0-5) /HPF Ur Epithelial Cells (None Seen) /HPF Urine Bacteria (None Seen) /HPF Urine Culture Reflexed (NO) 11/22/23 11/22/23 11/22/23 Range/Units 00:26 05:00 05:00 WBC 13.5 H (4.23-9.07) x10^3/uL RBC 4.60 L (4.63-6.08) x10^6/uL Hgb 13.3 L (13.7-17.5) g/dL Hct 39.4 L (40.1-51.0) % MCV 85.7 (79.0-92.2) fL MCH 28.9 (25.7-32.2) pg MCHC 33.8 (32.3-36.5) g/dL RDW 13.0 (11.6-14.4) % Plt Count 170 (163-337) x10^3/uL MPV 12.8 H (9.4-12.4) fL Gran % 75.8 H (34.0-67.9) % Immature Gran % (Auto) 0.5 H (0.001-0.429) % Nucleat RBC Rel Count 0.0 (0.00-0.2) % Eos # (Auto) 0.02 L (0.04-0.54) x10^3/uL Immature Gran # (Auto) 0.07 H (0.001-0.031) x10^3u/L Absolute Lymphs (auto) 1.92 (1.32-3.57) x10^3/uL Absolute Monos (auto) 1.23 H (0.30-0.82) x10^3/uL Absolute Nucleated RBC 0.00 (0.00-0.012) x10^3u/L Lymphocytes % 14.2 L (21.8-53.1) % Monocytes % 9.1 (5.3-12.2) % Eosinophils % 0.1 L (0.8-7.0) % Basophils % 0.3 (0.2-1.2) % Absolute Granulocytes 10.25 H (1.78-5.38) x10^3/uL Basophils # 0.04 (0.01-0.08) x10^3/uL Sodium 134 L (135-145) mmol/L Potassium 3.4 L (3.5-5.1) mmol/L Chloride 97 L (98-107) mmol/L Carbon Dioxide 24 (22-30) mmol/L Anion Gap 16.2 H (5-15) MEQ/L BUN 17 (9-20) mg/dL Creatinine 0.95 (0.66-1.25) mg/dL Estimated GFR 96.9 ML/MIN Glucose 184 H (74-106) mg/dL Hemoglobin A1c (4.5-6.0) % Lactic Acid (0.4-2.0) Calcium 9.3 (8.4-10.2) mg/dL Magnesium (1.6-2.3) mg/dL Total Bilirubin (0.2-1.3) mg/dL AST (17-59) U/L ALT (0-50) U/L Alkaline Phosphatase (38-126) U/L Serum Total Protein (6.3-8.2) g/dL Albumin (3.5-5.0) g/dL Urine Color Yellow (Yellow) Urine Appearance Clear (Clear) Urine pH 5.5 (4.6-8.0) Ur Specific [place] >=1.030 A (1.005-1.030) Urine Protein 30 (Negative) Urine Glucose (UA) 250 A (Negative) mg/dL Urine Ketones 40 A (Negative) Urine Blood Negative (Negative) Urine Nitrite Negative (Negative) Urine Bilirubin Negative (Negative) Urine Urobilinogen 1.0 A (0.2) mg/dL Ur Leukocyte Esterase Negative (Negative) U Hyaline Cast (Auto) NONE SEEN (0-2) /LPF Urine Microscopic RBC 0-2 (0-5) /HPF Urine Microscopic WBC 0-2 (0-5) /HPF Ur Epithelial Cells None Seen (None Seen) /HPF Urine Bacteria None Seen (None Seen) /HPF Urine Culture Reflexed NO (NO) 11/22/23 11/22/23 11/22/23 Range/Units 05:00 05:15 13:26 WBC (4.23-9.07) x10^3/uL RBC (4.63-6.08) x10^6/uL Hgb (13.7-17.5) g/dL Hct (40.1-51.0) % MCV (79.0-92.2) fL MCH (25.7-32.2) pg MCHC (32.3-36.5) g/dL RDW (11.6-14.4) % Plt Count (163-337) x10^3/uL MPV (9.4-12.4) fL Gran % (34.0-67.9) % Immature Gran % (Auto) (0.001-0.429) % Nucleat RBC Rel Count (0.00-0.2) % Eos # (Auto) (0.04-0.54) x10^3/uL Immature Gran # (Auto) (0.001-0.031) x10^3u/L Absolute Lymphs (auto) (1.32-3.57) x10^3/uL Absolute Monos (auto) (0.30-0.82) x10^3/uL Absolute Nucleated RBC (0.00-0.012) x10^3u/L Lymphocytes % (21.8-53.1) % Monocytes % (5.3-12.2) % Eosinophils % (0.8-7.0) % Basophils % (0.2-1.2) % Absolute Granulocytes (1.78-5.38) x10^3/uL Basophils # (0.01-0.08) x10^3/uL Sodium (135-145) mmol/L Potassium 3.6 (3.5-5.1) mmol/L Chloride (98-107) mmol/L Carbon Dioxide (22-30) mmol/L Anion Gap (5-15) MEQ/L BUN (9-20) mg/dL Creatinine (0.66-1.25) mg/dL Estimated GFR ML/MIN Glucose (74-106) mg/dL Hemoglobin A1c 9.11 H (4.5-6.0) % Lactic Acid (0.4-2.0) Calcium (8.4-10.2) mg/dL Magnesium 2.2 (1.6-2.3) mg/dL Total Bilirubin (0.2-1.3) mg/dL AST (17-59) U/L ALT (0-50) U/L Alkaline Phosphatase (38-126) U/L Serum Total Protein (6.3-8.2) g/dL Albumin (3.5-5.0) g/dL Urine Color (Yellow) Urine Appearance (Clear) Urine pH (4.6-8.0) Ur Specific [place] (1.005-1.030) Urine Protein (Negative) Urine Glucose (UA) (Negative) mg/dL Urine Ketones (Negative) Urine Blood (Negative) Urine Nitrite (Negative) Urine Bilirubin (Negative) Urine Urobilinogen (0.2) mg/dL Ur Leukocyte Esterase (Negative) U Hyaline Cast (Auto) (0-2) /LPF Urine Microscopic RBC (0-5) /HPF Urine Microscopic WBC (0-5) /HPF Ur Epithelial Cells (None Seen) /HPF Urine Bacteria (None Seen) /HPF Urine Culture Reflexed (NO) 11/22/23 Range/Units 13:37 WBC (4.23-9.07) x10^3/uL RBC (4.63-6.08) x10^6/uL Hgb (13.7-17.5) g/dL Hct (40.1-51.0) % MCV (79.0-92.2) fL MCH (25.7-32.2) pg MCHC (32.3-36.5) g/dL RDW (11.6-14.4) % Plt Count (163-337) x10^3/uL MPV (9.4-12.4) fL Gran % (34.0-67.9) % Immature Gran % (Auto) (0.001-0.429) % Nucleat RBC Rel Count (0.00-0.2) % Eos # (Auto) (0.04-0.54) x10^3/uL Immature Gran # (Auto) (0.001-0.031) x10^3u/L Absolute Lymphs (auto) (1.32-3.57) x10^3/uL Absolute Monos (auto) (0.30-0.82) x10^3/uL Absolute Nucleated RBC (0.00-0.012) x10^3u/L Lymphocytes % (21.8-53.1) % Monocytes % (5.3-12.2) % Eosinophils % (0.8-7.0) % Basophils % (0.2-1.2) % Absolute Granulocytes (1.78-5.38) x10^3/uL Basophils # (0.01-0.08) x10^3/uL Sodium (135-145) mmol/L Potassium (3.5-5.1) mmol/L Chloride (98-107) mmol/L Carbon Dioxide (22-30) mmol/L Anion Gap (5-15) MEQ/L BUN (9-20) mg/dL Creatinine (0.66-1.25) mg/dL Estimated GFR ML/MIN Glucose (74-106) mg/dL Hemoglobin A1c (4.5-6.0) % Lactic Acid 1.7 (0.4-2.0) Calcium (8.4-10.2) mg/dL Magnesium (1.6-2.3) mg/dL Total Bilirubin (0.2-1.3) mg/dL AST (17-59) U/L ALT (0-50) U/L Alkaline Phosphatase (38-126) U/L Serum Total Protein (6.3-8.2) g/dL Albumin (3.5-5.0) g/dL Urine Color (Yellow) Urine Appearance (Clear) Urine pH (4.6-8.0) Ur Specific [place] (1.005-1.030) Urine Protein (Negative) Urine Glucose (UA) (Negative) mg/dL Urine Ketones (Negative) Urine Blood (Negative) Urine Nitrite (Negative) Urine Bilirubin (Negative) Urine Urobilinogen (0.2) mg/dL Ur Leukocyte Esterase (Negative) U Hyaline Cast (Auto) (0-2) /LPF Urine Microscopic RBC (0-5) /HPF Urine Microscopic WBC (0-5) /HPF Ur Epithelial Cells (None Seen) /HPF Urine Bacteria (None Seen) /HPF Urine Culture Reflexed (NO) Accuchecks Date 11/22/23 Time 11:12 - Radiology Impressions Radiology Exams & Impressions: Radiology Procedures Category Date Time Status ANKLE (3 VIEWS) Stat Exams 11/21/23 19:35 Completed BONE THREE PHASE [NUCMED] Urgent Exams 11/23/23 09:52 Ordered VENOUS UNILAT/LIMITED EXTREMIT [US] Urgent Exams 11/22/23 07:19 Taken Assessment/Plan (1) Pilon fracture of right tibia Current Visit: Yes Status: Acute Code(s): S82.871A - DISPLACED PILON FRACTURE OF RIGHT TIBIA, INIT FOR CLOS FX (2) Ankle pain, right Current Visit: No Status: Acute Assessment & Plan: Pilon fracture addressed by Dr. Carrera with signs of routine healing. No obvious signs of infection noted on xray. Code(s): M25.571 - PAIN IN RIGHT ANKLE AND JOINTS OF RIGHT FOOT (3) Cellulitis Current Visit: Yes Status: Acute Assessment & Plan: Venous dopplers preformed demonstrating negative for DVT or SVT to the RLE Patient adequate candidate for compression therapy. Unna boot applied to the RLE Code(s): L03.90 - CELLULITIS, UNSPECIFIED (4) Leukocytosis Current Visit: Yes Status: Acute Assessment & Plan: medicine team currently treating with IV vancomycin and zosyn. Plan for bone scan to assess for potential of OM. No wounds to RLE. concern for issue stemming from deep to superficial. Code(s): D72.829 - ELEVATED WHITE BLOOD CELL COUNT, UNSPECIFIED (5) Sepsis Current Visit: Yes Status: Acute (6) Type 2 diabetes mellitus Current Visit: Yes Status: Acute
--- NOTE | 2023-11-22 19:33 | XRAY ---
Indication: Right leg pain and edema. 2-dimensional sonogram and color Doppler imaging major venous vessels right leg performed. Comparison: None No thrombus seen in the examined deep venous vessels right leg including greater saphenous vein. Veins demonstrate normal compressibility. Venous waveforms are normal with and without augmentation. Impression: Right leg negative for DVT. Comment: Preliminary report was given.
[2023-11-22] MEDS: VITAMIN D PO SCH (22:04)
[2023-11-22] MEDS: MELATONIN PO PRN (22:04)
[2023-11-22] MEDS: Lantus Insulin SQ SCH (22:12)
--- NOTE | 2023-11-23 05:03 | PCM.NOTE ---
Date and Time: 11/23/23 0502 Subjective Assessment: Mr. Villafuerte is a 53 year old male with a pmhx of DMII, Left and Right ankle ORIF (06/27), HLD, and HTN admitted 11/21/23 for cellulitis of the right ankle. Onset was approximately 3 days prior to admission. Patient reports pain, warmth, fevers, and swelling. Right ankle Xray showing healing/healed distal ti agnes/fibula fraxures with orthopedic hardware intact. The cellulitis appears inferential around the ankle. The involved extremities neurovascular tact distally compartments are soft cap refill less than 2 seconds. Patient septic on presentation with tachycardia, fever, lactic acid at 2.2, and leukocytosis with WBC at 13.5. Given vanc/zosyn in ED. Podiatry consulted - venous dopplers negative, unna boot applied with plans for bone scan to evaluate for OM. 11/22/23: Met with patient bedside. Endorses continued pain to the RLE 6/10 on numerical pain scale. Discussed case with podiatry. Plan for US and bone scan and continuation of vanc and zosyn. Added pain medication. Hypokalemia noted on lab work, will replenish. Denies fever,cough, sob, cp, abdominal pain, BUNDY, dizziness, N/V/D. 11/22: No overnight events noted. Patient states he slept well and pain is improved although unna boot is bothering him some. Discussed labwork with noted improvement to WBC now WNL, LA now WNL. Venous doppler negative for DVT. Plan for bone scan to evaluate for OM. Continue current IV abx. - Review of Systems Constitutional: No Symptoms Eyes: No Symptoms Ears, Nose, & Throat: No Symptoms Respiratory: No Symptoms Cardiac: No Symptoms Abdominal/Gastrointestinal: No Symptoms Genitourinary Symptoms: No Symptoms Musculoskeletal: Joint Pain (RLE) Skin: Cellulitis (RLE) Neurological: No Symptoms Psychological: No Symptoms Endocrine: No Symptoms Hematologic/Lymphatic: No Symptoms Immunological/Allergic: No Symptoms Objective Exam General Appearance: no apparent distress Neurologic Exam: alert, oriented x 3, cooperative Skin Exam: other (RLE with unna boot, cellulitis right foot to mid anterior munoz) Wound Assessment: Skin/Wound Assessment Wound/Incision Assessment Start: 11/22/23 00:00 Text: Status: Active Freq: Q6H Protocol: Document 11/23/23 00:45 AK (Rec: 11/23/23 01:12 AK [id number]) Wound/Incision Assessment right lower leg Wound Assessment Shift Assessment Wound Type cellulitis RLE Wound Stage Non Pressure Wound Drainage Amount None Primary Dressing unna boot Comment dressing CDI - NACHO Wound Photo Photo Taken No Eye Exam: PERRL Ears, Nose, Throat Exam: normal ENT inspection Neck Exam: normal inspection Respiratory Exam: normal breath sounds, lungs clear Cardiovascular Exam: regular rate/rhythm, normal heart sounds Gastrointestinal/Abdomen Exam: soft, normal bowel sounds Extremity Exam: inflammation (RLE) Back Exam: normal inspection Male Genitalia Exam: deferred Rectal Exam: deferred Objective Data Vital Signs: Vital Signs - 24 hr Temp Pulse Resp BP Pulse Ox 11/23/23 00:00 97.8 F 74 14 121/63 97 11/22/23 20:00 98.9 F 89 16 115/56 96 11/22/23 16:00 97.8 F 78 16 139/65 98 11/22/23 11:12 97.8 F 74 16 121/67 98 11/22/23 06:51 97.7 F 82 16 152/75 98 Pain Assessment - Last Documented Pain Intensity 0 Pain Scale Used 0-10 Pain Scale Intake and Output: Intake & Output 11/20/23 11/21/23 11/22/23 11/23/23 11:59 11:59 11:59 11:59 Intake Total 1195 840 Output Total 1425 1700 Balance -230 -860 Weight 121.2 kg Lab Results: Lab Results-Last 24 Hours 11/22/23 11/22/23 11/22/23 Range/Units 05:00 05:00 05:00 WBC 13.5 H (4.23-9.07) x10^3/uL RBC 4.60 L (4.63-6.08) x10^6/uL Hgb 13.3 L (13.7-17.5) g/dL Hct 39.4 L (40.1-51.0) % MCV 85.7 (79.0-92.2) fL MCH 28.9 (25.7-32.2) pg MCHC 33.8 (32.3-36.5) g/dL RDW 13.0 (11.6-14.4) % Plt Count 170 (163-337) x10^3/uL MPV 12.8 H (9.4-12.4) fL Gran % 75.8 H (34.0-67.9) % Immature Gran % (Auto) 0.5 H (0.001-0.429) % Nucleat RBC Rel Count 0.0 (0.00-0.2) % Eos # (Auto) 0.02 L (0.04-0.54) x10^3/uL Immature Gran # (Auto) 0.07 H (0.001-0.031) x10^3u/L Absolute Lymphs (auto) 1.92 (1.32-3.57) x10^3/uL Absolute Monos (auto) 1.23 H (0.30-0.82) x10^3/uL Absolute Nucleated RBC 0.00 (0.00-0.012) x10^3u/L Lymphocytes % 14.2 L (21.8-53.1) % Monocytes % 9.1 (5.3-12.2) % Eosinophils % 0.1 L (0.8-7.0) % Basophils % 0.3 (0.2-1.2) % Absolute Granulocytes 10.25 H (1.78-5.38) x10^3/uL Basophils # 0.04 (0.01-0.08) x10^3/uL Sodium 134 L (135-145) mmol/L Potassium 3.4 L (3.5-5.1) mmol/L Chloride 97 L (98-107) mmol/L Carbon Dioxide 24 (22-30) mmol/L Anion Gap 16.2 H (5-15) MEQ/L BUN 17 (9-20) mg/dL Creatinine 0.95 (0.66-1.25) mg/dL Estimated GFR 96.9 ML/MIN Glucose 184 H (74-106) mg/dL Hemoglobin A1c 9.11 H (4.5-6.0) % Lactic Acid (0.4-2.0) Calcium 9.3 (8.4-10.2) mg/dL Magnesium (1.6-2.3) mg/dL 11/22/23 11/22/23 11/22/23 Range/Units 05:15 13:26 13:37 WBC (4.23-9.07) x10^3/uL RBC (4.63-6.08) x10^6/uL Hgb (13.7-17.5) g/dL Hct (40.1-51.0) % MCV (79.0-92.2) fL MCH (25.7-32.2) pg MCHC (32.3-36.5) g/dL RDW (11.6-14.4) % Plt Count (163-337) x10^3/uL MPV (9.4-12.4) fL Gran % (34.0-67.9) % Immature Gran % (Auto) (0.001-0.429) % Nucleat RBC Rel Count (0.00-0.2) % Eos # (Auto) (0.04-0.54) x10^3/uL Immature Gran # (Auto) (0.001-0.031) x10^3u/L Absolute Lymphs (auto) (1.32-3.57) x10^3/uL Absolute Monos (auto) (0.30-0.82) x10^3/uL Absolute Nucleated RBC (0.00-0.012) x10^3u/L Lymphocytes % (21.8-53.1) % Monocytes % (5.3-12.2) % Eosinophils % (0.8-7.0) % Basophils % (0.2-1.2) % Absolute Granulocytes (1.78-5.38) x10^3/uL Basophils # (0.01-0.08) x10^3/uL Sodium (135-145) mmol/L Potassium 3.6 (3.5-5.1) mmol/L Chloride (98-107) mmol/L Carbon Dioxide (22-30) mmol/L Anion Gap (5-15) MEQ/L BUN (9-20) mg/dL Creatinine (0.66-1.25) mg/dL Estimated GFR ML/MIN Glucose (74-106) mg/dL Hemoglobin A1c (4.5-6.0) % Lactic Acid 1.7 (0.4-2.0) Calcium (8.4-10.2) mg/dL Magnesium 2.2 (1.6-2.3) mg/dL Radiology Exams: Radiology Procedures Category Date Time Status ANKLE (3 VIEWS) Stat Exams 11/21/23 19:35 Completed BONE THREE PHASE [NUCMED] Urgent Exams 11/23/23 09:52 Ordered VENOUS UNILAT/LIMITED EXTREMIT [US] Urgent Exams 11/22/23 07:19 Completed Multi-Disciplinary Progress Notes: Multi-Disciplinary Progress Notes 11/22/23 07:16 Pharmacy Note by Bharathi Meneses Pharmacokinetic dosing service Date: 11/22/2023 Time: 714 Objective: Patient: MIKO VILLAFUERTE Floor: 102 Age: 53 yo Serum creatinine: 0.95 mg/dL Height: 70 Inches Weight (kg): 121 Diagnosis: RIGHT ANKLE CELLULITIS Relevant medical/social history: Cultures and sensitivities: BLOOD CULTURE PENDING Other labs: LACTIC ACID 2.2; WBC 13.5 Assessment: IBW (kg): 73.00 Dosing wt(kg): 121 Estimated Creatinine clearance (ml/min): 95.0 CRCL method: Cockcroft and Gault using ibw(default). Drug selected: Vancomycin Loading dose (mg): 0 Vd (liters): 90.8 (factor used: 0.75 L/kg) Jonathan (hr-1): 0.083 Half life (hrs): 8.35 Recommended dose: 2000 mg Interval: 12 hrs Infusion time (hrs): 2.0 Predicted peak (mcg/mL): 32.2 Predicted trough (mcg/mL): 14.04 Total body weight is being used for vancomycin dosing. Renal function is stable [ XXX] /unstable [ ] Recommendations: Give Vancomycin 2000 mg q 12 hrs with an expected Cpeak of 32.2 mcg/ml and an expected Ctrough of 14.04 mcg/ml Renal dosing of other antibiotics (review renal dosing of other medications and list guidelines here): ZOSYN Thank you for the consult, will continue to follow. Signature: ZULEYKA VANCOMYCIN TROUGH 11/23/23 0930 Initialized on 11/22/23 07:16 - END OF NOTE Assessment/Plan (1) Sepsis Current Visit: Yes Status: Acute Assessment & Plan: Meets criteria with elevated WBC, fever, tachycardia, elevated LA, and known source of infection - cellulitis -Vanc/zosyn started in ED -repeat LA when able - patient hard stick refused additional blood draw -UA negative -IVF 11/22: -no longer meets criteria -LA and WBC now wnl -Blood culture with NGTD -continue vanc/zosyn for now (2) Cellulitis Current Visit: Yes Status: Acute Assessment & Plan: -Vanc/zosyn initiated- will continue -culture any open wounds -Blood cultures pending -ganesh borders -Podiatry consulted agree with plan for bone scan/US - continue vanc/zosyn -US -podiatry consult -Xray of right ankle showing healing/healed distal tibia/fibula fractures with orthopedic hardware intact -ganesh borders -elevate affected limb 11/22: -Podiatry consult note reviewed, agree with plan - Unna boot applied to the RLE/Bone scan ordered and pending -venous dopplers negative for DVT -Continue vanc/zosyn for now Code(s): L03.90 - CELLULITIS, UNSPECIFIED (3) HTN (hypertension) Current Visit: Yes Status: Acute Assessment & Plan: -stable continue home meds Code(s): I10 - ESSENTIAL (PRIMARY) HYPERTENSION (4) HLD (hyperlipidemia) Current Visit: Yes Status: Acute Assessment & Plan: -continue statin Code(s): E78.5 - HYPERLIPIDEMIA, UNSPECIFIED (5) Type 2 diabetes mellitus Current Visit: Yes Status: Acute Assessment & Plan: -SSI/glargine -ADA diet -accuchecks -A1c at 9.11 -discussed the importance of good glycemic control for healing VTE: lovenox PPI: Protonix Dispo: 2-3 days (2) Cellulitis Current Visit: Yes Status: Acute Code(s): L03.90 - CELLULITIS, UNSPECIFIED (3) HTN (hypertension) Current Visit: Yes Status: Acute Code(s): I10 - ESSENTIAL (PRIMARY) HYPERTENSION (4) HLD (hyperlipidemia) Current Visit: Yes Status: Acute Code(s): E78.5 - HYPERLIPIDEMIA, UNSPECIFIED (5) Type 2 diabetes mellitus Current Visit: Yes Status: Acute
[2023-11-23 07:24] LABS: Absolute Neutrophil Ct (ANC) 5.54 x10^3/uL (1.78-5.38); BASOPHIL % 0.5 % (0.2-1.2); Basophil (Absolute #) 0.04 x10^3/uL (0.01-0.08); Eosinophil % 2.4 % (0.8-7.0); Hematocrit 38.9 % (40.1-51.0); Hemoglobin 12.9 g/dL (13.7-17.5); IMMATURE GRAN # 0.04 x10^3u/L (0.001-0.031); IMMATURE GRAN % 0.5 % (0.001-0.429); Lymphocyte (Absolute #) 1.81 x10^3/uL (1.32-3.57); Lymphocytes % 21.5 % (21.8-53.1); Mean Cell Volume 88.2 fL (79.0-92.2); Mean Corpuscular Hemoglobin 29.3 pg (25.7-32.2); Mean Corpuscular Hgb Concent. 33.2 g/dL (32.3-36.5); Mean Platelet Volume 11.9 fL (9.4-12.4); Monocytes % 9.5 % (5.3-12.2); Neutrophil % 65.6 % (34.0-67.9); Platelet Count 165 x10^3/uL (163-337); Red Blood Count 4.41 x10^6/uL (4.63-6.08); Red Cell Distribution Width 12.6 % (11.6-14.4); White Blood Count 8.4 x10^3/uL (4.23-9.07)
[2023-11-23 07:43] LABS: ALBUMIN 3.6 g/dL (3.5-5.0); ANION GAP 12.5 MEQ/L (5-15); BILIRUBIN,TOTAL 1.1 mg/dL (0.2-1.3); Calcium 8.7 mg/dL (8.4-10.2); Creatinine 1 0.99 mg/dL (0.66-1.25); EST GLOMERULAR FILTRATION RATE 92.2 ML/MIN; Potassium 3.8 mmol/L (3.5-5.1); Total Protein 6.6 g/dL (6.3-8.2)
[2023-11-23] MEDS ORDERED: TROUGH DRUG LEVELS IJ ONE (09:30)
[2023-11-23] MEDS: VANCOMYCIN 1.5 GRAM/300 ML BAG 1.5 GM/300 ML PIGGYBACK IV SCH (09:52)
--- NOTE | 2023-11-23 15:35 | PCM.NOTE ---
Date and Time: 11/23/23 1533 Subjective Assessment: is a 53 year old male with recent hx in May of Pilon fracture to the right lower extremity falling approximately 6 feet out of a blanco. Patient indicates he was seen by Dr. Carrera in [facility] who preformed a staged procedure for external fixation spanning the fracture and then definitive fixation approximately 12 days later. Patient progressed without complication up until 3 days ago where 1 month after resuming weight bearing there was immense pain and leg was solitario red. Patient presented to ED and was admitted for RLE cellulitis. Patient currently on Vancomycin and zosyn with no obvious open wounds or draining. incisions are co apt. 11/22 laying in bed this afternoon. pain controlled. No signficant complaints. bone scan obtained awaiting read. extensive discussion regarding course of treatment. Physical Exam - Narrative Narrative Physical Exam: Podiatry Physical Exam Objective Data Vital Signs: Vital Signs - 24 hr Temp Pulse Resp BP Pulse Ox 11/23/23 11:43 97.7 F 77 18 136/63 97 11/23/23 07:49 99.1 F 72 18 135/69 96 11/23/23 05:00 97.7 F 75 16 128/61 96 11/23/23 00:00 97.8 F 74 14 121/63 97 11/22/23 20:00 98.9 F 89 16 115/56 96 11/22/23 16:00 97.8 F 78 16 139/65 98 Pain Assessment - Last Documented Pain Intensity 3 Pain Scale Used 0-10 Pain Scale Intake and Output: Intake & Output 11/21/23 11/22/23 11/23/23 11/24/23 11:59 11:59 11:59 11:59 Intake Total 1195 4125 120 Output Total 1425 2100 600 Balance -230 2025 -480 Weight 121.2 kg Lab Results: Lab Results-Last 24 Hours 11/23/23 11/23/23 11/23/23 Range/Units 07:15 07:15 07:15 WBC 8.4 (4.23-9.07) x10^3/uL RBC 4.41 L (4.63-6.08) x10^6/uL Hgb 12.9 L (13.7-17.5) g/dL Hct 38.9 L (40.1-51.0) % MCV 88.2 (79.0-92.2) fL MCH 29.3 (25.7-32.2) pg MCHC 33.2 (32.3-36.5) g/dL RDW 12.6 (11.6-14.4) % Plt Count 165 (163-337) x10^3/uL MPV 11.9 (9.4-12.4) fL Gran % 65.6 (34.0-67.9) % Immature Gran % (Auto) 0.5 H (0.001-0.429) % Nucleat RBC Rel Count 0.0 (0.00-0.2) % Eos # (Auto) 0.20 (0.04-0.54) x10^3/uL Immature Gran # (Auto) 0.04 H (0.001-0.031) x10^3u/L Absolute Lymphs (auto) 1.81 (1.32-3.57) x10^3/uL Absolute Monos (auto) 0.80 (0.30-0.82) x10^3/uL Absolute Nucleated RBC 0.00 (0.00-0.012) x10^3u/L Lymphocytes % 21.5 L (21.8-53.1) % Monocytes % 9.5 (5.3-12.2) % Eosinophils % 2.4 (0.8-7.0) % Basophils % 0.5 (0.2-1.2) % Absolute Granulocytes 5.54 H (1.78-5.38) x10^3/uL Basophils # 0.04 (0.01-0.08) x10^3/uL Sodium 137 (135-145) mmol/L Potassium 3.8 (3.5-5.1) mmol/L Chloride 104 (98-107) mmol/L Carbon Dioxide 24 (22-30) mmol/L Anion Gap 12.5 (5-15) MEQ/L BUN 14 (9-20) mg/dL Creatinine 0.99 (0.66-1.25) mg/dL Estimated GFR 92.2 ML/MIN Glucose 160 H (74-106) mg/dL Calcium 8.7 (8.4-10.2) mg/dL Total Bilirubin 1.10 (0.2-1.3) mg/dL AST 27 (17-59) U/L ALT 25 (0-50) U/L Alkaline Phosphatase 75 (38-126) U/L Serum Total Protein 6.6 (6.3-8.2) g/dL Albumin 3.6 (3.5-5.0) g/dL Vancomycin Trough 10.48 (10-20) ug/mL Radiology Exams: Radiology Procedures Category Date Time Status ANKLE (3 VIEWS) Stat Exams 11/21/23 19:35 Completed BONE THREE PHASE [NUCMED] Urgent Exams 11/23/23 09:52 Taken LOWER EXTREMITY WO CONTRAST [CT] Stat Exams 11/23/23 15:17 Ordered VENOUS UNILAT/LIMITED EXTREMIT [US] Urgent Exams 11/22/23 07:19 Completed Multi-Disciplinary Progress Notes: Multi-Disciplinary Progress Notes 11/23/23 09:55 Case Management Note by Daisy Calvert S/W PATIENT- HE CONTINUES TO DENY ANY NEW NEEDS AT TIME OF DC. HE PLANS TO R ETURN WITH HIS SIG OTHER AT TIME OF DC. Initialized on 11/23/23 09:55 - END OF NOTE 11/23/23 08:51 Pharmacy Note by Keon Rodrigez Vancomycin trough drawn 2 hours early was 10.48. Actual trough would be <10.0. Will change dose to 1.5gm IV q8h for better level. Initialized on 11/23/23 08:51 - END OF NOTE Assessment/Plan (1) Pilon fracture of right tibia Current Visit: Yes Status: Acute Assessment & Plan: Pilon fracture addressed by Dr. Carrera with signs of routine healing. No obvious signs of infection noted on xray. Dr. Ford requesting CT scan to assess for potential fracture healing. Ordered and results will be faxed to Shaka his Nurse practitioner. Code(s): S82.871A - DISPLACED PILON FRACTURE OF RIGHT TIBIA, INIT FOR CLOS FX (2) Ankle pain, right Current Visit: No Status: Acute Code(s): M25.571 - PAIN IN RIGHT ANKLE AND JOINTS OF RIGHT FOOT (3) Cellulitis Current Visit: Yes Status: Acute Assessment & Plan: Venous dopplers preformed demonstrating negative for DVT or SVT to the RLE Patient adequate candidate for compression therapy. Unna boot applied to the RLE Code(s): L03.90 - CELLULITIS, UNSPECIFIED (4) Leukocytosis Current Visit: Yes Status: Acute Code(s): D72.829 - ELEVATED WHITE BLOOD CELL COUNT, UNSPECIFIED (5) Sepsis Current Visit: Yes Status: Acute Assessment & Plan: medicine team currently treating with IV vancomycin and zosyn. Bone scan reviewed independently demonstrating 4 hour uptake in area of concern possibly indicating concern for OM. Discussed with Dr. Ford/Shaka who based on these findings agree at retrieving a bone biopsy. Plan for OR tomorrow to obtain bone biopsys and cultures. PICC placement. Plan for weight bearing to tolerance of the RLE following bone biopsy. Pain control inpatient for now per medicine team. NPO at midnight Tentative consent to state bone biopsies x4 right tibia. No open wounds to RLE. (6) Type 2 diabetes mellitus Current Visit: Yes Status: Acute
--- NOTE | 2023-11-23 17:36 | XRAY ---
CLINICAL HISTORY: RIGHT LEG PAIN COMPARISON: X-ray dated 08/05/2023 TECHNIQUE: Contiguous axial CT images of the right lower extremity (ankle joint) were obtained without intravenous contrast. Sagittal and coronal reconstructions were also acquired. One of the following dose reduction techniques were utilized for this exam: Automated exposure control, adjustment of the mA and/or kV according to patient size, use of iterative reconstruction. FINDINGS: Bones: Internal fixation of the distal tibia and fibula using plates and screws. Healing distal fibular fracture. Non-united comminuted fractures of the distal tibia involving its articular surface. No lytic or sclerotic lesions. [place] holes of extracted fixation are seen at the tibial shaft and calcaneus. Joints: Mild degenerative changes of the tibiotalar joint. Few variable sized loose bone fragments are seen within the ankle joint. Mild ankle joint effusion. Normal appearance of the subtalar, and intertarsal joints. Soft Tissues: [place] articular soft tissue edema. Muscles: Normal appearance of the surrounding musculature. No muscle atrophy . Normal appearance of the Achilles tendon and other tendons around the ankle. IMPRESSION: Status post operative and posttraumatic showing healed fibular fracture, non-united tibial fracture and intraarticular loose bone fragments within the ankle joint. Electronically Signed by: Janelle Garcia MD. (11/23/2023 17:32:59 EDT)
--- NOTE | 2023-11-23 19:42 | XRAY ---
CLINICAL HISTORY: RIGHT LEG PAIN COMPARISON: Previous radiograph dated 08/05/2023 was also reviewed. TECHNIQUE: Dynamic three phase bone scan of bilateral lower leg is performed after IV administration of 29.9mCi 99mTc MDP. Dynamic flow phase is obtained just after the injection, followed by blood pool phase and 4 hour delayed static images. FINDINGS: Increased tracer activity is noted in flow and blood pool phases in soft tissue of right leg, more marked just above the ankle region. On delayed images, patchy increase tracer uptake is noted in the mid and distal shaft of tibia more marked in the ankle region. Left leg appears unremarkable. IMPRESSION: 1. Increased tracer activity in flow and blood pool phases as well as delayed phase in right mid and distal tibia, more marked at the ankle region. 2. Findings can be due to old healing fractures with hyperemia of reactive bone changes. 3. Other differential is osteomyelitis. Needs correlation with fresh X-ray., followed up by MRI if required. Electronically Signed by: Janelle Garcia MD. (11/23/2023 19:37:47 EDT)
[2023-11-24 05:01] LABS: Absolute Neutrophil Ct (ANC) 5.73 x10^3/uL (1.78-5.38); BASOPHIL % 0.4 % (0.2-1.2); Basophil (Absolute #) 0.04 x10^3/uL (0.01-0.08); Eosinophil % 2.3 % (0.8-7.0); Eosinophil (Absolute #) 0.21 x10^3/uL (0.04-0.54); Hematocrit 35.7 % (40.1-51.0); Hemoglobin 11.9 g/dL (13.7-17.5); IMMATURE GRAN # 0.07 x10^3u/L (0.001-0.031); IMMATURE GRAN % 0.8 % (0.001-0.429); Lymphocyte (Absolute #) 2.09 x10^3/uL (1.32-3.57); Mean Cell Volume 86.9 fL (79.0-92.2); Mean Corpuscular Hgb Concent. 33.3 g/dL (32.3-36.5); Mean Platelet Volume 12.1 fL (9.4-12.4); Monocyte (Absolute #) 0.93 x10^3/uL (0.30-0.82); Monocytes % 10.3 % (5.3-12.2); Neutrophil % 63.2 % (34.0-67.9); Platelet Count 187 x10^3/uL (163-337); Red Blood Count 4.11 x10^6/uL (4.63-6.08); Red Cell Distribution Width 12.5 % (11.6-14.4); White Blood Count 9.1 x10^3/uL (4.23-9.07)
--- NOTE | 2023-11-24 05:08 | PCM.NOTE ---
Date and Time: 11/24/23 0506 Subjective Assessment: Mr. Reina is a 53 year old male with a pmhx of DMII, Left and Right ankle ORIF (06/27), HLD, and HTN admitted 11/21/23 for cellulitis of the right ankle. Onset was approximately 3 days prior to admission. Patient reports pain, warmth, fevers, and swelling. Right ankle Xray showing healing/healed distal ti agnes/fibula fraxures with orthopedic hardware intact. The cellulitis appears inferential around the ankle. The involved extremities neurovascular tact distally compartments are soft cap refill less than 2 seconds. Patient septic on presentation with tachycardia, fever, lactic acid at 2.2, and leukocytosis with WBC at 13.5. Given vanc/zosyn in ED. Podiatry consulted - venous dopplers negative, unna boot applied with plans for bone scan to evaluate for OM. Bone scan showing uptake in area of concern possibly indicating concern for OM. Plan for bone biopsy and cultures per poditary 11/24/23. 11/22/23: Met with patient bedside. Endorses continued pain to the RLE 6/10 on numerical pain scale. Discussed case with podiatry. Plan for US and bone scan and continuation of vanc and zosyn. Added pain medication. Hypokalemia noted on lab work, will replenish. Denies fever,cough, sob, cp, abdominal pain, BUNDY, dizziness, N/V/D. 11/22: No overnight events noted. Patient states he slept well and pain is improved although unna boot is bothering him some. Discussed labwork with noted improvement to WBC now WNL, LA now WNL. Venous doppler negative for DVT. Plan for bone scan to evaluate for OM. Continue current IV abx. 11/23: Met with patient and spouse at bedside. Endorses controlled pain with 3/10 numerical rating. Upon exam RLE erythema receding marked borders. Increased edema around the right ankle. Bone scan/CT scan concerning for OM. Bone biopsy scheduled for today with podiatry. Discussed case with podiatry, plan for continuation of vanc/zosyn -follow cultures- PICC placement. - Review of Systems Constitutional: No Symptoms Eyes: No Symptoms Ears, Nose, & Throat: No Symptoms Respiratory: No Symptoms Cardiac: No Symptoms Abdominal/Gastrointestinal: No Symptoms Genitourinary Symptoms: No Symptoms Musculoskeletal: Joint Pain (right ankle 3/10), Joint Swelling Skin: Cellulitis Neurological: No Symptoms Psychological: No Symptoms Endocrine: No Symptoms Hematologic/Lymphatic: No Symptoms Immunological/Allergic: No Symptoms Objective Exam General Appearance: no apparent distress Neurologic Exam: alert, oriented x 3, cooperative Skin Exam: normal color Wound Assessment: Skin/Wound Assessment Wound/Incision Assessment Start: 11/22/23 00:00 Text: Status: Active Freq: Q6H Protocol: Document 11/24/23 02:00 ADAM (Rec: 11/24/23 04:22 AK [id number]) Wound/Incision Assessment right lower leg Wound Assessment Shift Assessment Wound Type cellulitis Wound Stage Non Pressure Wound Surrounding Tissue Bright Red,Edematous Comment cellulitis to RLE - redness decreased since time of outline - no open wounds noted Wound Photo Photo Taken No Eye Exam: PERRL Ears, Nose, Throat Exam: normal ENT inspection Neck Exam: normal inspection Respiratory Exam: normal breath sounds, lungs clear Cardiovascular Exam: regular rate/rhythm, normal heart sounds Gastrointestinal/Abdomen Exam: soft, normal bowel sounds Extremity Exam: inflammation, pedal edema, swelling, other ( RLE Mid munoz to foot with erythema receding marked borders - edema - no open areas/drainage) Back Exam: normal inspection Male Genitalia Exam: deferred Rectal Exam: deferred Objective Data Vital Signs: Vital Signs - 24 hr Temp Pulse Resp BP Pulse Ox 11/24/23 04:00 98.2 F 76 16 124/65 95 11/23/23 23:55 98.8 F 83 16 131/63 95 11/23/23 20:00 98.3 F 89 16 133/60 99 11/23/23 16:00 97.8 F 77 20 123/83 97 11/23/23 11:43 97.7 F 77 18 136/63 97 11/23/23 07:49 99.1 F 72 18 135/69 96 Pain Assessment - Last Documented Pain Intensity 2 Pain Scale Used 0-10 Pain Scale Intake and Output: Intake & Output 11/21/23 11/22/23 11/23/23 11/24/23 11:59 11:59 11:59 11:59 Intake Total 1195 4125 480 Output Total 1425 2100 2450 Balance -230 2024 Weight 121.2 kg Lab Results: Lab Results-Last 24 Hours 11/23/23 11/23/23 11/23/23 Range/Units 07:15 07:15 07:15 WBC 8.4 (4.23-9.07) x10^3/uL RBC 4.41 L (4.63-6.08) x10^6/uL Hgb 12.9 L (13.7-17.5) g/dL Hct 38.9 L (40.1-51.0) % MCV 88.2 (79.0-92.2) fL MCH 29.3 (25.7-32.2) pg MCHC 33.2 (32.3-36.5) g/dL RDW 12.6 (11.6-14.4) % Plt Count 165 (163-337) x10^3/uL MPV 11.9 (9.4-12.4) fL Gran % 65.6 (34.0-67.9) % Immature Gran % (Auto) 0.5 H (0.001-0.429) % Nucleat RBC Rel Count 0.0 (0.00-0.2) % Eos # (Auto) 0.20 (0.04-0.54) x10^3/uL Immature Gran # (Auto) 0.04 H (0.001-0.031) x10^3u/L Absolute Lymphs (auto) 1.81 (1.32-3.57) x10^3/uL Absolute Monos (auto) 0.80 (0.30-0.82) x10^3/uL Absolute Nucleated RBC 0.00 (0.00-0.012) x10^3u/L Lymphocytes % 21.5 L (21.8-53.1) % Monocytes % 9.5 (5.3-12.2) % Eosinophils % 2.4 (0.8-7.0) % Basophils % 0.5 (0.2-1.2) % Absolute Granulocytes 5.54 H (1.78-5.38) x10^3/uL Basophils # 0.04 (0.01-0.08) x10^3/uL Sodium 137 (135-145) mmol/L Potassium 3.8 (3.5-5.1) mmol/L Chloride 104 (98-107) mmol/L Carbon Dioxide 24 (22-30) mmol/L Anion Gap 12.5 (5-15) MEQ/L BUN 14 (9-20) mg/dL Creatinine 0.99 (0.66-1.25) mg/dL Estimated GFR 92.2 ML/MIN Glucose 160 H (74-106) mg/dL Calcium 8.7 (8.4-10.2) mg/dL Total Bilirubin 1.10 (0.2-1.3) mg/dL AST 27 (17-59) U/L ALT 25 (0-50) U/L Alkaline Phosphatase 75 (38-126) U/L Serum Total Protein 6.6 (6.3-8.2) g/dL Albumin 3.6 (3.5-5.0) g/dL Vancomycin Trough 10.48 (10-20) ug/mL Radiology Exams: Radiology Procedures Category Date Time Status BONE THREE PHASE [NUCMED] Urgent Exams 11/23/23 09:52 Completed LOWER EXTREMITY WO CONTRAST [CT] Stat Exams 11/23/23 15:17 Completed VENOUS UNILAT/LIMITED EXTREMIT [US] Urgent Exams 11/22/23 07:19 Completed Multi-Disciplinary Progress Notes: Multi-Disciplinary Progress Notes 11/23/23 09:55 Case Management Note by Daisy Calvert S/W PATIENT- HE CONTINUES TO DENY ANY NEW NEEDS AT TIME OF DC. HE PLANS TO RETURN WITH HIS SIG OTHER AT TIME OF DC. Initialized on 11/23/23 09:55 - END OF NOTE 11/23/23 08:51 Pharmacy Note by Keon Rodrigez Vancomycin trough drawn 2 hours early was 10.48. Actual trough would be <10.0. Will change dose to 1.5gm IV q8h for better level. Initialized on 11/23/23 08:51 - END OF NOTE Assessment/Plan (1) Sepsis Current Visit: Yes Status: Acute Assessment & Plan: Meets criteria with elevated WBC, fever, tachycardia, elevated LA, and known source of infection - cellulitis -Vanc/zosyn started in ED -repeat LA when able - patient hard stick refused additional blood draw -UA negative -IVF 11/22: -no longer meets criteria -LA and WBC now wnl -Blood culture with NGTD -continue vanc/zosyn for now 11/23: -CT RLE/bone scan concerning for OM - plan for bone biopsy today -Continue vanc/zosyn - follow cultures -PICC placement (2) Cellulitis Current Visit: Yes Status: Acute Assessment & Plan: -Vanc/zosyn initiated- will continue -culture any open wounds -Blood cultures pending -ganesh borders -Podiatry consulted agree with plan for bone scan/US - continue vanc/zosyn -US -podiatry consult -Xray of right ankle showing healing/healed distal tibia/fibula fractures with orthopedic hardware intact -ganesh borders -elevate affected limb 11/22: -Podiatry consult note reviewed, agree with plan - Unna boot applied to the RLE/Bone scan ordered and pending -venous dopplers negative for DVT -Continue vanc/zosyn for now 11/23: -Podiatry note reviewed - agree with plan for PICC placement/bone biopsy/cultures of right tibia as bone scan indicates uptake in affected area possibly indicating OM -patient's multimedia assistant Dr. Ford notified and agreeable. Weight bearing to tolerance of RLE following bone biopsy. Code(s): L03.90 - CELLULITIS, UNSPECIFIED (3) HTN (hypertension) Current Visit: Yes Status: Acute Assessment & Plan: -stable continue home meds Code(s): I10 - ESSENTIAL (PRIMARY) HYPERTENSION (4) HLD (hyperlipidemia) Current Visit: Yes Status: Acute Assessment & Plan: -continue statin Code(s): E78.5 - HYPERLIPIDEMIA, UNSPECIFIED (5) Type 2 diabetes mellitus Current Visit: Yes Status: Acute Assessment & Plan: -SSI/glargine -ADA diet -accuchecks -A1c at 9.11 -discussed the importance of good glycemic control for healing VTE: lovenox PPI: Protonix Dispo: 2-3 days (2) Cellulitis Current Visit: Yes Status: Acute Code(s): L03.90 - CELLULITIS, UNSPECIFIED (3) HTN (hypertension) Current Visit: Yes Status: Acute Code(s): I10 - ESSENTIAL (PRIMARY) HYPERTENSION (4) HLD (hyperlipidemia) Current Visit: Yes Status: Acute Code(s): E78.5 - HYPERLIPIDEMIA, UNSPECIFIED (5) Type 2 diabetes mellitus Current Visit: Yes Status: Acute
[2023-11-24 05:29] LABS: ALBUMIN 3.6 g/dL (3.5-5.0); ANION GAP 11.6 MEQ/L (5-15); BILIRUBIN,TOTAL 1.1 mg/dL (0.2-1.3); Calcium 8.7 mg/dL (8.4-10.2); Creatinine 1 0.92 mg/dL (0.66-1.25); EST GLOMERULAR FILTRATION RATE 100.7 ML/MIN; Potassium 3.7 mmol/L (3.5-5.1); Total Protein 6.6 g/dL (6.3-8.2)
[2023-11-24] MEDS ORDERED: Marcaine Mpf 0.5% Vial 30 Ml ONE (06:18)
[2023-11-24] MEDS ORDERED: XYLOCAINE 1% HCL 20 ML MDV ONE (06:18)
[2023-11-24] MEDS ORDERED: Xylocaine-Mpf 2% 5 Ml Vial ONE (08:35)
[2023-11-24] MEDS ORDERED: DIPRIVAN 200 MG/20 ML IV ONE ×4 (08:35→09:11)
[2023-11-24] MEDS ORDERED: Versed 2 MG/2 ML Injection ONE (08:36)
[2023-11-24] MEDS ORDERED: DEXMEDETOMIDINE 80 MCG/20ML-NS IV ONE (08:39)
[2023-11-24] MEDS ORDERED: Lactated Ringers 1,000 ML IV ONE (08:59)
--- NOTE | 2023-11-24 09:36 | XRAY ---
Indication: Right tibia bone biopsy. Intraoperative fluoroscopy provided for 26 seconds. 12 digital spot images submitted for interpretation demonstrates tip of metallic localizer overlying distal tibia. Also incompletely visualized multiple distal tibia/fibula orthopedic fixation hardware. Correlate with intraoperative findings/report.
[2023-11-24] MEDS: TROUGH DRUG LEVELS IJ ONE (10:50)
--- NOTE | 2023-11-24 12:35 | XRAY ---
26 seconds of fluoroscopy used in surgery for a right tibia bone biopsy.
--- NOTE | 2023-11-24 13:15 | XRAY ---
Indication: PICC line placement. Comparison: August 31, 2017 Portable chest demonstrates new right arm PICC line with tip projecting over right atrium. Lungs inflated and clear. Heart not enlarged. Bony thorax intact.
[2023-11-24] MEDS: BENADRYL 50 MG/ML IV ONE (13:52)
[2023-11-24] MEDS: Robitussin-Dm Syrup PO PRN (13:53)
--- NOTE | 2023-11-25 05:03 | PCM.NOTE ---
Date and Time: 11/25/23 0502 Subjective Assessment: Mr. Reina is a 53 year old male with a pmhx of DMII, Left and Right ankle ORIF (06/27), HLD, and HTN admitted 11/21/23 for cellulitis of the right ankle. Onset was approximately 3 days prior to admission. Patient reports pain, warmth, fevers, and swelling. Right ankle Xray showing healing/healed distal ti agnes/fibula fraxures with orthopedic hardware intact. The cellulitis appears inferential around the ankle. The involved extremities neurovascular tact distally compartments are soft cap refill less than 2 seconds. Patient septic on presentation with tachycardia, fever, lactic acid at 2.2, and leukocytosis with WBC at 13.5. Given vanc/zosyn in ED. Podiatry consulted - venous dopplers negative, unna boot applied with plans for bone scan to evaluate for OM. Bone scan showing uptake in area of concern possibly indicating concern for OM. Plan for bone biopsy and cultures per poditary 11/24/23. 11/22/23: Met with patient bedside. Endorses continued pain to the RLE 6/10 on numerical pain scale. Discussed case with podiatry. Plan for US and bone scan and continuation of vanc and zosyn. Added pain medication. Hypokalemia noted on lab work, will replenish. Denies fever,cough, sob, cp, abdominal pain, BUNDY, dizziness, N/V/D. 11/22: No overnight events noted. Patient states he slept well and pain is improved although unna boot is bothering him some. Discussed labwork with noted improvement to WBC now WNL, LA now WNL. Venous doppler negative for DVT. Plan for bone scan to evaluate for OM. Continue current IV abx. 11/23: Met with patient and spouse at bedside. Endorses controlled pain with 3/10 numerical rating. Upon exam RLE erythema receding marked borders. Increased edema around the right ankle. Bone scan/CT scan concerning for OM. Bone biopsy scheduled for today with podiatry. Discussed case with podiatry, plan for continuation of vanc/zosyn -follow cultures- PICC placement. 11/23: Patient doing well this morning. Pain controlled. Endorses dry cough - CXR and lung sounds clear. Patient states he gets this cough at this time every year and usually gets a steroid shot. Plan for continued abx, biopsy results pending. Podiatry following. Will add budosonide. Denies fever sob, cp, abdominal pain, BUNDY, dizziness, N/V/D. - Review of Systems Constitutional: No Symptoms Eyes: No Symptoms Ears, Nose, & Throat: No Symptoms Respiratory: Cough Cardiac: No Symptoms Abdominal/Gastrointestinal: No Symptoms Genitourinary Symptoms: No Symptoms Musculoskeletal: Joint Pain (R ankle) Skin: Cellulitis Neurological: No Symptoms Psychological: No Symptoms Endocrine: No Symptoms Hematologic/Lymphatic: No Symptoms Immunological/Allergic: No Symptoms Objective Exam General Appearance: no apparent distress Neurologic Exam: alert, oriented x 3, cooperative Skin Exam: other (see wound assessment -RLE wrapped) Wound Assessment: Skin/Wound Assessment Wound/Incision Assessment Start: 11/22/23 00:00 Text: Status: Active Freq: Q6H Protocol: Document 11/25/23 02:00 MP (Rec: 11/25/23 02:07 MP [id number]) Wound/Incision Assessment right lower leg Wound Assessment Shift Assessment Wound Type CELLULITIS Wound Stage Non Pressure Wound Comment LEG WRAPPED PER PODIATRY, UNABLE TO ASSESS Wound Photo Photo Taken No Eye Exam: PERRL Ears, Nose, Throat Exam: normal ENT inspection Neck Exam: normal inspection Respiratory Exam: normal breath sounds, lungs clear Cardiovascular Exam: regular rate/rhythm, normal heart sounds Gastrointestinal/Abdomen Exam: soft, normal bowel sounds Extremity Exam: inflammation (RLE), joint swelling (Right ankle) Back Exam: normal inspection Male Genitalia Exam: deferred Rectal Exam: deferred Objective Data Vital Signs: Vital Signs - 24 hr Temp Pulse Resp BP Pulse Ox 11/25/23 04:00 96.9 F 77 16 141/66 94 L 11/25/23 00:00 97.7 F 89 20 130/64 94 L 11/24/23 19:45 98.7 F 80 18 123/58 92 L 11/24/23 16:00 98.4 F 79 18 131/65 96 11/24/23 11:57 98.0 F 75 16 127/58 97 11/24/23 06:40 98.2 F 76 16 124/65 95 Pain Assessment - Last Documented Pain Intensity 0 Pain Scale Used 0-10 Pain Scale Intake and Output: Intake & Output 11/22/23 11/23/23 11/24/23/21/24 11:59 11:59 11:59 11:59 Intake Total 1195 3286 6160 8541 Output Total 3785 6338 4832 8831 Balance -230 2024 -318 1194 Weight 121.2 kg 121.2 kg Lab Results: Lab Results-Last 24 Hours 11/24/23 11/24/23 11/24/23 Range/Units 04:50 04:50 09:34 WBC 9.1 H (4.23-9.07) x10^3/uL RBC 4.11 L (4.63-6.08) x10^6/uL Hgb 11.9 L (13.7-17.5) g/dL Hct 35.7 L (40.1-51.0) % MCV 86.9 (79.0-92.2) fL MCH 29.0 (25.7-32.2) pg MCHC 33.3 (32.3-36.5) g/dL RDW 12.5 (11.6-14.4) % Plt Count 187 (163-337) x10^3/uL MPV 12.1 (9.4-12.4) fL Gran % 63.2 (34.0-67.9) % Immature Gran % (Auto) 0.8 H (0.001-0.429) % Nucleat RBC Rel Count 0.0 (0.00-0.2) % Eos # (Auto) 0.21 (0.04-0.54) x10^3/uL Immature Gran # (Auto) 0.07 H (0.001-0.031) x10^3u/L Absolute Lymphs (auto) 2.09 (1.32-3.57) x10^3/uL Absolute Monos (auto) 0.93 H (0.30-0.82) x10^3/uL Absolute Nucleated RBC 0.00 (0.00-0.012) x10^3u/L Lymphocytes % 23.0 (21.8-53.1) % Monocytes % 10.3 (5.3-12.2) % Eosinophils % 2.3 (0.8-7.0) % Basophils % 0.4 (0.2-1.2) % Absolute Granulocytes 5.73 H (1.78-5.38) x10^3/uL Basophils # 0.04 (0.01-0.08) x10^3/uL Sodium 135 (135-145) mmol/L Potassium 3.7 (3.5-5.1) mmol/L Chloride 101 (98-107) mmol/L Carbon Dioxide 26 (22-30) mmol/L Anion Gap 11.6 (5-15) MEQ/L BUN 10 (9-20) mg/dL Creatinine 0.92 (0.66-1.25) mg/dL Estimated GFR 100.7 ML/MIN Glucose 148 H (74-106) mg/dL POC Glucometer (74 to 106) mg/dL Calcium 8.7 (8.4-10.2) mg/dL Total Bilirubin 1.10 (0.2-1.3) mg/dL AST 29 (17-59) U/L ALT 30 (0-50) U/L Alkaline Phosphatase 80 (38-126) U/L Serum Total Protein 6.6 (6.3-8.2) g/dL Albumin 3.6 (3.5-5.0) g/dL Vancomycin Trough 9.37 L (10-20) ug/mL 11/24/23 Range/Units 10:18 WBC (4.23-9.07) x10^3/uL RBC (4.63-6.08) x10^6/uL Hgb (13.7-17.5) g/dL Hct (40.1-51.0) % MCV (79.0-92.2) fL MCH (25.7-32.2) pg MCHC (32.3-36.5) g/dL RDW (11.6-14.4) % Plt Count (163-337) x10^3/uL MPV (9.4-12.4) fL Gran % (34.0-67.9) % Immature Gran % (Auto) (0.001-0.429) % Nucleat RBC Rel Count (0.00-0.2) % Eos # (Auto) (0.04-0.54) x10^3/uL Immature Gran # (Auto) (0.001-0.031) x10^3u/L Absolute Lymphs (auto) (1.32-3.57) x10^3/uL Absolute Monos (auto) (0.30-0.82) x10^3/uL Absolute Nucleated RBC (0.00-0.012) x10^3u/L Lymphocytes % (21.8-53.1) % Monocytes % (5.3-12.2) % Eosinophils % (0.8-7.0) % Basophils % (0.2-1.2) % Absolute Granulocytes (1.78-5.38) x10^3/uL Basophils # (0.01-0.08) x10^3/uL Sodium (135-145) mmol/L Potassium (3.5-5.1) mmol/L Chloride (98-107) mmol/L Carbon Dioxide (22-30) mmol/L Anion Gap (5-15) MEQ/L BUN (9-20) mg/dL Creatinine (0.66-1.25) mg/dL Estimated GFR ML/MIN Glucose (74-106) mg/dL POC Glucometer 159 H (74 to 106) mg/dL Calcium (8.4-10.2) mg/dL Total Bilirubin (0.2-1.3) mg/dL AST (17-59) U/L ALT (0-50) U/L Alkaline Phosphatase (38-126) U/L Serum Total Protein (6.3-8.2) g/dL Albumin (3.5-5.0) g/dL Vancomycin Trough (10-20) ug/mL Radiology Exams: Radiology Procedures Category Date Time Status BONE THREE PHASE [NUCMED] Urgent Exams 11/23/23 09:52 Completed CHEST 1 VIEW (PORTABLE) Stat Exams 11/24/23 12:52 Completed FLUOROSCOPY UP TO 1 HR Routine Exams 11/24/23 06:49 Completed LOWER EXTREMITY WO CONTRAST [CT] Stat Exams 11/23/23 15:17 Completed LOWER LEG Routine Exams 11/24/23 06:49 Completed Multi-Disciplinary Progress Notes: Multi-Disciplinary Progress Notes 11/24/23 12:23 Pharmacy Note by Keon Rodrigez Vancomycin trough still low for unknown reason. Ran thru calculator again. Repeat level tomorrow morning and will adjust if needed. Initialized on 11/24/23 12:23 - END OF NOTE Assessment/Plan (1) Sepsis Current Visit: Yes Status: Acute Assessment & Plan: Meets criteria with elevated WBC, fever, tachycardia, elevated LA, and known source of infection - cellulitis -Vanc/zosyn started in ED -repeat LA when able - patient hard stick refused additional blood draw -UA negative -IVF 11/22: -no longer meets criteria -LA and WBC now wnl -Blood culture with NGTD -continue vanc/zosyn for now 11/23: -CT RLE/bone scan concerning for OM - plan for bone biopsy today -Continue vanc/zosyn - follow cultures -PICC placement 11/24: -WBC wnl -Vanc/zosyn continue - pending bone biopsy -podiatry following (2) Cellulitis Current Visit: Yes Status: Acute Assessment & Plan: -Vanc/zosyn initiated- will continue -culture any open wounds -Blood cultures pending -ganesh borders -Podiatry consulted agree with plan for bone scan/US - continue vanc/zosyn -US -podiatry consult -Xray of right ankle showing healing/healed distal tibia/fibula fractures with orthopedic hardware intact -ganesh borders -elevate affected limb 11/22: -Podiatry consult note reviewed, agree with plan - Unna boot applied to the RLE/Bone scan ordered and pending -venous dopplers negative for DVT -Continue vanc/zosyn for now 11/23: -Podiatry note reviewed - agree with plan for PICC placement/bone biopsy/cultures of right tibia as bone scan indicates uptake in affected area possibly indicating OM -patient's master hearth technician Dr. Ford notified and agreeable. Weight bearing to tolerance of RLE following bone biopsy. Code(s): L03.90 - CELLULITIS, UNSPECIFIED ## Cough -CXR clear -RA -Lungs clear on auscultation/no fever -Resp viral panel -pulmicort/robitussin (3) HTN (hypertension) Current Visit: Yes Status: Acute Assessment & Plan: -stable continue home meds Code(s): I10 - ESSENTIAL (PRIMARY) HYPERTENSION (4) HLD (hyperlipidemia) Current Visit: Yes Status: Acute Assessment & Plan: -continue statin Code(s): E78.5 - HYPERLIPIDEMIA, UNSPECIFIED (5) Type 2 diabetes mellitus Current Visit: Yes Status: Acute Assessment & Plan: -SSI/glargine -ADA diet -accuchecks -A1c at 9.11 -discussed the importance of good glycemic control for healing VTE: lovenox PPI: Protonix Dispo: 2-3 days (2) Cellulitis Current Visit: Yes Status: Acute Code(s): L03.90 - CELLULITIS, UNSPECIFIED (3) HTN (hypertension) Current Visit: Yes Status: Acute Code(s): I10 - ESSENTIAL (PRIMARY) HYPERTENSION (4) HLD (hyperlipidemia) Current Visit: Yes Status: Acute Code(s): E78.5 - HYPERLIPIDEMIA, UNSPECIFIED (5) Type 2 diabetes mellitus Current Visit: Yes Status: Acute (6) Cough Current Visit: Yes Status: Acute Code(s): R05.9 - COUGH, UNSPECIFIED
[2023-11-25 06:41] LABS: Absolute Neutrophil Ct (ANC) 5.88 x10^3/uL (1.78-5.38); BASOPHIL % 0.6 % (0.2-1.2); Basophil (Absolute #) 0.05 x10^3/uL (0.01-0.08); Eosinophil % 2.8 % (0.8-7.0); Eosinophil (Absolute #) 0.24 x10^3/uL (0.04-0.54); Hematocrit 35.6 % (40.1-51.0); Hemoglobin 11.9 g/dL (13.7-17.5); IMMATURE GRAN # 0.09 x10^3u/L (0.001-0.031); Lymphocyte (Absolute #) 1.69 x10^3/uL (1.32-3.57); Lymphocytes % 19.5 % (21.8-53.1); Mean Cell Volume 88.3 fL (79.0-92.2); Mean Corpuscular Hemoglobin 29.5 pg (25.7-32.2); Mean Corpuscular Hgb Concent. 33.4 g/dL (32.3-36.5); Mean Platelet Volume 11.8 fL (9.4-12.4); Monocyte (Absolute #) 0.71 x10^3/uL (0.30-0.82); Monocytes % 8.2 % (5.3-12.2); Neutrophil % 67.9 % (34.0-67.9); Platelet Count 167 x10^3/uL (163-337); Red Blood Count 4.03 x10^6/uL (4.63-6.08); Red Cell Distribution Width 12.3 % (11.6-14.4); White Blood Count 8.7 x10^3/uL (4.23-9.07)
[2023-11-25 09:35] LABS: ALBUMIN 3.3 g/dL (3.5-5.0); ANION GAP 10.3 MEQ/L (5-15); BILIRUBIN,TOTAL 0.8 mg/dL (0.2-1.3); Calcium 8.8 mg/dL (8.4-10.2); Creatinine 1 0.82 mg/dL (0.66-1.25); EST GLOMERULAR FILTRATION RATE 106.4 ML/MIN; Potassium 3.9 mmol/L (3.5-5.1)
[2023-11-25] MEDS: DELTASONE 20 MG PO SCH (09:47)
[2023-11-25] MEDS: TROUGH DRUG LEVELS IJ ONE (09:49)
[2023-11-25 10:41] LABS: INFLUENZA A NEGATIVE (NEGATIVE); INFLUENZA B NEGATIVE (NEGATIVE); RESPIRATORY SYNCTIAL VIRUS NEGATIVE (NEGATIVE); SARS-CoV-2 Xpert Express NEGATIVE (NEGATIVE)
[2023-11-25] MEDS: PULMICORT 0.5 MG/2 ML RESPULES IH SCH (19:14)
--- NOTE | 2023-11-26 05:04 | PCM.NOTE ---
Date and Time: 11/26/23 0507 Subjective Assessment: Mr. Reina is a 53 year old male with a pmhx of DMII, Left and Right ankle ORIF (06/27), HLD, and HTN admitted 11/21/23 for cellulitis of the right ankle. Onset was approximately 3 days prior to admission. Patient reports pain, warmth, fevers, and swelling. Right ankle Xray showing healing/healed distal ti agnes/fibula fraxures with orthopedic hardware intact. The cellulitis appears inferential around the ankle. The involved extremities neurovascular tact distally compartments are soft cap refill less than 2 seconds. Patient septic on presentation with tachycardia, fever, lactic acid at 2.2, and leukocytosis with WBC at 13.5. Given vanc/zosyn in ED. Podiatry consulted - venous dopplers negative, unna boot applied with plans for bone scan to evaluate for OM. Bone scan showing uptake in area of concern possibly indicating concern for OM. Plan for bone biopsy and cultures per poditary 11/24/23. 11/22/23: Met with patient bedside. Endorses continued pain to the RLE 6/10 on numerical pain scale. Discussed case with podiatry. Plan for US and bone scan and continuation of vanc and zosyn. Added pain medication. Hypokalemia noted on lab work, will replenish. Denies fever,cough, sob, cp, abdominal pain, BUNDY, dizziness, N/V/D. 11/22: No overnight events noted. Patient states he slept well and pain is improved although unna boot is bothering him some. Discussed labwork with noted improvement to WBC now WNL, LA now WNL. Venous doppler negative for DVT. Plan for bone scan to evaluate for OM. Continue current IV abx. 11/23: Met with patient and spouse at bedside. Endorses controlled pain with 3/10 numerical rating. Upon exam RLE erythema receding marked borders. Increased edema around the right ankle. Bone scan/CT scan concerning for OM. Bone biopsy scheduled for today with podiatry. Discussed case with podiatry, plan for continuation of vanc/zosyn -follow cultures- PICC placement. 11/24: Patient doing well this morning. Pain controlled. Endorses dry cough - CXR and lung sounds clear. Patient states he gets this cough at this time every year and usually gets a steroid shot. Plan for continued abx, biopsy results pending. Podiatry following. Will add budosonide. Denies fever sob, cp, abdominal pain, BUNDY, dizziness, N/V/D. 11/25: Met with patient bedside. No complaints this morning. Pain in RLE controlled. Cough improved. Lungs clear on auscultation. <TAYLER BRAY - Last Filed: 11/26/23 10:35> Date and Time: 11/26/232140 <MOONARGELIARadhaROSIE - Last Filed: 11/26/23 21:43> - Review of Systems Constitutional: No Symptoms Eyes: No Symptoms Ears, Nose, & Throat: No Symptoms Respiratory: Cough Cardiac: No Symptoms Abdominal/Gastrointestinal: No Symptoms Genitourinary Symptoms: No Symptoms Musculoskeletal: Joint Pain (right ankle) Skin: Cellulitis (RLE) Neurological: No Symptoms Psychological: No Symptoms Endocrine: No Symptoms Hematologic/Lymphatic: No Symptoms <TAYLER BRAY - Last Filed: 11/26/23 10:35> Objective Exam General Appearance: no apparent distress Neurologic Exam: alert, oriented x 3, cooperative Skin Exam: normal color Wound Assessment: Skin/Wound Assessment Wound/Incision Assessment Start: 11/22/23 00:00 Text: Status: Active Freq: Q6H Protocol: Document 11/26/23 02:00 MP (Rec: 11/26/23 02:16 MP [id number]) Wound/Incision Assessment right lower leg Wound Assessment Shift Assessment Wound Type CELLULITIS Wound Stage Non Pressure Wound Comment LEG WRAPPED PER PODIATRY, UNABLE TO ASSESS Wound Photo Photo Taken No Eye Exam: PERRL Ears, Nose, Throat Exam: normal ENT inspection Neck Exam: normal inspection Respiratory Exam: normal breath sounds, lungs clear Cardiovascular Exam: regular rate/rhythm, normal heart sounds Gastrointestinal/Abdomen Exam: soft, normal bowel sounds (Right foot to mid munoz covered in dressing no surrounding erythema) Extremity Exam: inflammation, swelling Back Exam: normal inspection Male Genitalia Exam: deferred Rectal Exam: deferred <TAYLER BRAY - Last Filed: 11/26/23 10:35> Wound Assessment: Skin/Wound Assessment Wound/Incision Assessment Start: 11/22/23 00:00 Text: Status: Active Freq: Q6H Protocol: Document 11/26/23 19:54 [facility] (Rec: 11/26/23 19:59 [facility] [id number]) Wound/Incision Assessment right lower leg Wound Assessment Shift Assessment Wound Type CELLULITIS Wound Stage Non Pressure Wound Dressing Status Dry & Intact Drainage Amount None Drainage Odor None/Absent Comment Dressing C/D/I, Podiatry to manage dressing changes. Wound Photo Photo Taken No <ROSIE YOO - Last Filed: 11/26/23 21:43> Objective Data Vital Signs: Vital Signs - 24 hr Temp Pulse Resp BP Pulse Ox 11/26/23 04:00 97.1 F 75 20 153/83 97 11/25/23 23:24 97.3 F 76 18 133/70 95 11/25/23 20:00 98.0 F 77 20 139/69 96 11/25/23 19:14 87 18 97 11/25/23 16:00 97.3 F 70 17 134/74 95 11/25/23 11:32 97.8 F 75 16 138/63 94 L 11/25/23 07:22 97.1 F 81 16 137/71 93 L Pain Assessment - Last Documented Pain Intensity 0 Pain Scale Used 0-10 Pain Scale Intake and Output: Intake & Output 11/23/23 11/24/23 11/25/23 11/26/23 11:59 11:59 11:59 11:59 Intake Total 4125 3282 4349 3601 Output Total 2100 3600 2675 2900 Balance 2025 -318 1674 701 Weight 121.2 kg Lab Results: Lab Results-Last 24 Hours 11/25/23 11/25/23 11/25/23 Range/Units 06:00 06:00 09:14 WBC 8.7 (4.23-9.07) x10^3/uL RBC 4.03 L (4.63-6.08) x10^6/uL Hgb 11.9 L (13.7-17.5) g/dL Hct 35.6 L (40.1-51.0) % MCV 88.3 (79.0-92.2) fL MCH 29.5 (25.7-32.2) pg MCHC 33.4 (32.3-36.5) g/dL RDW 12.3 (11.6-14.4) % Plt Count 167 (163-337) x10^3/uL MPV 11.8 (9.4-12.4) fL Gran % 67.9 (34.0-67.9) % Immature Gran % (Auto) 1.0 H (0.001-0.429) % Nucleat RBC Rel Count 0.0 (0.00-0.2) % Eos # (Auto) 0.24 (0.04-0.54) x10^3/uL Immature Gran # (Auto) 0.09 H (0.001-0.031) x10^3u/L Absolute Lymphs (auto) 1.69 (1.32-3.57) x10^3/uL Absolute Monos (auto) 0.71 (0.30-0.82) x10^3/uL Absolute Nucleated RBC 0.00 (0.00-0.012) x10^3u/L Lymphocytes % 19.5 L (21.8-53.1) % Monocytes % 8.2 (5.3-12.2) % Eosinophils % 2.8 (0.8-7.0) % Basophils % 0.6 (0.2-1.2) % Absolute Granulocytes 5.88 H (1.78-5.38) x10^3/uL Basophils # 0.05 (0.01-0.08) x10^3/uL Sodium 134 L (135-145) mmol/L Potassium 3.9 (3.5-5.1) mmol/L Chloride 102 (98-107) mmol/L Carbon Dioxide 26 (22-30) mmol/L Anion Gap 10.3 (5-15) MEQ/L BUN 11 (9-20) mg/dL Creatinine 0.82 (0.66-1.25) mg/dL Estimated GFR 106.4 ML/MIN Glucose 165 H (74-106) mg/dL Calcium 8.8 (8.4-10.2) mg/dL Total Bilirubin 0.80 (0.2-1.3) mg/dL AST 40 (17-59) U/L ALT 45 (0-50) U/L Alkaline Phosphatase 106 (38-126) U/L Serum Total Protein 6.0 L (6.3-8.2) g/dL Albumin 3.3 L (3.5-5.0) g/dL Vancomycin Trough 11.25 (10-20) ug/mL Influenza Type A Ag (NEGATIVE) Influenza Type B Ag (NEGATIVE) RSV (PCR) (NEGATIVE) SARS-CoV-2 (PCR) (NEGATIVE) 11/25/23 Range/Units 09:48 WBC (4.23-9.07) x10^3/uL RBC (4.63-6.08) x10^6/uL Hgb (13.7-17.5) g/dL Hct (40.1-51.0) % MCV (79.0-92.2) fL MCH (25.7-32.2) pg MCHC (32.3-36.5) g/dL RDW (11.6-14.4) % Plt Count (163-337) x10^3/uL MPV (9.4-12.4) fL Gran % (34.0-67.9) % Immature Gran % (Auto) (0.001-0.429) % Nucleat RBC Rel Count (0.00-0.2) % Eos # (Auto) (0.04-0.54) x10^3/uL Immature Gran # (Auto) (0.001-0.031) x10^3u/L Absolute Lymphs (auto) (1.32-3.57) x10^3/uL Absolute Monos (auto) (0.30-0.82) x10^3/uL Absolute Nucleated RBC (0.00-0.012) x10^3u/L Lymphocytes % (21.8-53.1) % Monocytes % (5.3-12.2) % Eosinophils % (0.8-7.0) % Basophils % (0.2-1.2) % Absolute Granulocytes (1.78-5.38) x10^3/uL Basophils # (0.01-0.08) x10^3/uL Sodium (135-145) mmol/L Potassium (3.5-5.1) mmol/L Chloride (98-107) mmol/L Carbon Dioxide (22-30) mmol/L Anion Gap (5-15) MEQ/L BUN (9-20) mg/dL Creatinine (0.66-1.25) mg/dL Estimated GFR ML/MIN Glucose (74-106) mg/dL Calcium (8.4-10.2) mg/dL Total Bilirubin (0.2-1.3) mg/dL AST (17-59) U/L ALT (0-50) U/L Alkaline Phosphatase (38-126) U/L Serum Total Protein (6.3-8.2) g/dL Albumin (3.5-5.0) g/dL Vancomycin Trough (10-20) ug/mL Influenza Type A Ag NEGATIVE (NEGATIVE) Influenza Type B Ag NEGATIVE (NEGATIVE) RSV (PCR) NEGATIVE (NEGATIVE) SARS-CoV-2 (PCR) NEGATIVE (NEGATIVE) Radiology Exams: Radiology Procedures Category Date Time Status CHEST 1 VIEW (PORTABLE) Stat Exams 11/24/23 12:52 Completed FLUOROSCOPY UP TO 1 HR Routine Exams 11/24/23 06:49 Completed LOWER LEG Routine Exams 11/24/23 06:49 Completed <TAYLER BRAY - Last Filed: 11/26/23 10:35> Vital Signs: Vital Signs - 24 hr Temp Pulse Resp BP Pulse Ox 11/26/23 20:00 97.3 F 78 18 146/71 96 11/26/23 18:58 89 16 97 11/26/23 16:00 97.7 F 69 17 142/75 97 11/26/23 11:52 96.9 F 75 18 124/64 95 11/26/23 07:49 78 16 96 11/26/23 07:45 97.3 F 69 17 141/68 93 L 11/26/23 04:00 97.1 F 75 20 153/83 97 11/25/23 23:24 97.3 F 76 18 133/70 95 Pain Assessment - Last Documented Pain Intensity 0 Pain Scale Used 0-10 Pain Scale Intake and Output: Intake & Output 11/24/23 11/25/23 11/26/23 11/27/23 11:59 11:59 11:59 11:59 Intake Total 3282 4349 4081 1927 Output Total 3600 2675 3650 1150 Balance -318 1734 001 777 Weight 121.2 kg Lab Results: Lab Results-Last 24 Hours 11/26/23 11/26/23 Range/Units 05:30 05:30 WBC 9.3 H (4.23-9.07) x10^3/uL RBC 4.19 L (4.63-6.08) x10^6/uL Hgb 12.0 L (13.7-17.5) g/dL Hct 36.7 L (40.1-51.0) % MCV 87.6 (79.0-92.2) fL MCH 28.6 (25.7-32.2) pg MCHC 32.7 (32.3-36.5) g/dL RDW 12.3 (11.6-14.4) % Plt Count 205 (163-337) x10^3/uL MPV 12.3 (9.4-12.4) fL Gran % 66.1 (34.0-67.9) % Immature Gran % (Auto) 0.9 H (0.001-0.429) % Nucleat RBC Rel Count 0.0 (0.00-0.2) % Eos # (Auto) 0.29 (0.04-0.54) x10^3/uL Immature Gran # (Auto) 0.08 H (0.001-0.031) x10^3u/L Absolute Lymphs (auto) 2.17 (1.32-3.57) x10^3/uL Absolute Monos (auto) 0.55 (0.30-0.82) x10^3/uL Absolute Nucleated RBC 0.00 (0.00-0.012) x10^3u/L Lymphocytes % 23.5 (21.8-53.1) % Monocytes % 5.9 (5.3-12.2) % Eosinophils % 3.1 (0.8-7.0) % Basophils % 0.5 (0.2-1.2) % Absolute Granulocytes 6.11 H (1.78-5.38) x10^3/uL Basophils # 0.05 (0.01-0.08) x10^3/uL Sodium 137 (135-145) mmol/L Potassium 3.9 (3.5-5.1) mmol/L Chloride 102 (98-107) mmol/L Carbon Dioxide 27 (22-30) mmol/L Anion Gap 12.6 (5-15) MEQ/L BUN 12 (9-20) mg/dL Creatinine 0.83 (0.66-1.25) mg/dL Estimated GFR 106.0 ML/MIN Glucose 126 H (74-106) mg/dL Calcium 9.0 (8.4-10.2) mg/dL Total Bilirubin 0.70 (0.2-1.3) mg/dL AST 43 (17-59) U/L ALT 50 (0-50) U/L Alkaline Phosphatase 90 (38-126) U/L Serum Total Protein 6.3 (6.3-8.2) g/dL Albumin 3.5 (3.5-5.0) g/dL <RAMEZ YOOA - Last Filed: 11/26/23 21:43> Assessment/Plan (1) Sepsis Current Visit: Yes Status: Acute Assessment & Plan: Meets criteria with elevated WBC, fever, tachycardia, elevated LA, and known source of infection - cellulitis -Vanc/zosyn started in ED -repeat LA when able - patient hard stick refused additional blood draw -UA negative -IVF 11/22: -no longer meets criteria -LA and WBC now wnl -Blood culture with NGTD -continue vanc/zosyn for now 11/23: -CT RLE/bone scan concerning for OM - plan for bone biopsy today -Continue vanc/zosyn - follow cultures -PICC placement 11/24: -WBC wnl -Vanc/zosyn continue - pending bone biopsy -podiatry following 11/25: -Pain at tolerable level - continue current management -Continue vanc/zosyn - pending bone biopsy results (2) Cellulitis Current Visit: Yes Status: Acute Assessment & Plan: -Vanc/zosyn initiated- will continue -culture any open wounds -Blood cultures pending -ganesh borders -Podiatry consulted agree with plan for bone scan/US - continue vanc/zosyn -US -podiatry consult -Xray of right ankle showing healing/healed distal tibia/fibula fractures with orthopedic hardware intact -ganesh borders -elevate affected limb 11/22: -Podiatry consult note reviewed, agree with plan - Unna boot applied to the RLE/Bone scan ordered and pending -venous dopplers negative for DVT -Continue vanc/zosyn for now 11/23: -Podiatry note reviewed - agree with plan for PICC placement/bone biopsy/cultures of right tibia as bone scan indicates uptake in affected area possibly indicating OM -patient's direct care counselor Dr. Ford notified and agreeable. Weight bearing to tolerance of RLE following bone biopsy. Code(s): L03.90 - CELLULITIS, UNSPECIFIED ## Cough -CXR clear -RA -Lungs clear on auscultation/no fever -Resp viral panel -pulmicort/robitussin 11/25: -improving (3) HTN (hypertension) Current Visit: Yes Status: Acute Assessment & Plan: -stable continue home meds Code(s): I10 - ESSENTIAL (PRIMARY) HYPERTENSION (4) HLD (hyperlipidemia) Current Visit: Yes Status: Acute Assessment & Plan: -continue statin Code(s): E78.5 - HYPERLIPIDEMIA, UNSPECIFIED (5) Type 2 diabetes mellitus Current Visit: Yes Status: Acute Assessment & Plan: -SSI/glargine -ADA diet -accuchecks -A1c at 9.11 -discussed the importance of good glycemic control for healing VTE: lovenox PPI: Protonix Dispo: 2-3 days (2) Cellulitis Current Visit: Yes Status: Acute Code(s): L03.90 - CELLULITIS, UNSPECIFIED (3) HTN (hypertension) Current Visit: Yes Status: Acute Code(s): I10 - ESSENTIAL (PRIMARY) HYPERTENSION (4) HLD (hyperlipidemia) Current Visit: Yes Status: Acute Code(s): E78.5 - HYPERLIPIDEMIA, UNSPECIFIED (5) Type 2 diabetes mellitus Current Visit: Yes Status: Acute (6) Cough Current Visit: Yes Status: Acute Code(s): R05.9 - COUGH, UNSPECIFIED <TAYLER BRAY - Last Filed: 11/26/23 10:35> MARYLOU Encounter - MARYLOU Encounter Attestation MARYLOU Encounter Attestation: "IhkatherinpersonallyseenandexedwindMCCMIKO KIRK andhavediscussed pertinent aspects of their care with Tayler bray and agree with the history, physical exam (any modifications based on my personal exam will be noted below), assessment, and plan as outlined in original note. Please see immediately below for my summary of findings and additional assessment and plan along with any meaningful corrections/explanations to the Subjective/Objective portions of the MARYLOU note will be noted." My portion of the encounter took place via telemedicine. -Recent right ankle fracture s/p ORIF presented with cellulitis, bone scan concerning for OM. Awaiting bone biopsy results to determine need for further intervention by podiatry. <ROSIE YOO - Last Filed: 11/26/23 21:43>
[2023-11-26 06:03] LABS: Absolute Neutrophil Ct (ANC) 6.11 x10^3/uL (1.78-5.38); BASOPHIL % 0.5 % (0.2-1.2); Basophil (Absolute #) 0.05 x10^3/uL (0.01-0.08); Eosinophil % 3.1 % (0.8-7.0); Eosinophil (Absolute #) 0.29 x10^3/uL (0.04-0.54); Hematocrit 36.7 % (40.1-51.0); IMMATURE GRAN # 0.08 x10^3u/L (0.001-0.031); IMMATURE GRAN % 0.9 % (0.001-0.429); Lymphocyte (Absolute #) 2.17 x10^3/uL (1.32-3.57); Lymphocytes % 23.5 % (21.8-53.1); Mean Cell Volume 87.6 fL (79.0-92.2); Mean Corpuscular Hemoglobin 28.6 pg (25.7-32.2); Mean Corpuscular Hgb Concent. 32.7 g/dL (32.3-36.5); Mean Platelet Volume 12.3 fL (9.4-12.4); Monocyte (Absolute #) 0.55 x10^3/uL (0.30-0.82); Monocytes % 5.9 % (5.3-12.2); Neutrophil % 66.1 % (34.0-67.9); Platelet Count 205 x10^3/uL (163-337); Red Blood Count 4.19 x10^6/uL (4.63-6.08); Red Cell Distribution Width 12.3 % (11.6-14.4); White Blood Count 9.3 x10^3/uL (4.23-9.07)
[2023-11-26 06:26] LABS: ALBUMIN 3.5 g/dL (3.5-5.0); ANION GAP 12.6 MEQ/L (5-15); BILIRUBIN,TOTAL 0.7 mg/dL (0.2-1.3); Creatinine 1 0.83 mg/dL (0.66-1.25); Potassium 3.9 mmol/L (3.5-5.1); Total Protein 6.3 g/dL (6.3-8.2)
--- NOTE | 2023-11-27 00:30 | OP ---
SURGERY DATE/TIME: 11/24/2023 [id number] PREOPERATIVE DIAGNOSES: 1) Closed pilon fracture, right tibia. 2) Right ankle pain. 3) Cellulitis. 4) Osteomyelitis. POSTOPERATIVE DIAGNOSES: 1) Closed pilon fracture, right tibia. 2) Right ankle pain. 3) Cellulitis. 4) Osteomyelitis. PROCEDURE: Bone biopsy and bone culture x4. SURGEON: Torito Rogers D.P.M. ANESTHESIA: Monitored anesthesia care. HEMOSTASIS: Pressure dressing. ESTIMATED BLOOD LOSS: Approximately 5 mL. MATERIALS: 3-0 nylon. INJECTABLES: 20 mL of a 1:1 mixture of 1% lidocaine plain and 0.5% bupivacaine plain injected in a V block-type fashion to the right lower extremity. INDICATIONS: Michael is a very pleasant 53-year-old male who presented to the hospital for cellulitis and sepsis to the right lower extremity on Monday of this week. He was admitted for IV antibiotics, and my service was consulted as the patient did have cellulitis with significant leg swelling to the right lower extremity. The patient had a recent history of a pilon fracture that happened on a job site, falling approximately 6 feet from his blanco. From that standpoint, he did suffer a pilon fracture which with a staged procedure consisting of an external fixator spanning the fracture and then definitive fixation with Dr. Carrera in [place], [place]. The patient had an inconsequential and uneventful postoperative course up until approximately 1 week ago which is approximately 5 months postop where he did have a significant amount of swelling and cellulitis of the right leg out of seemingly nowhere. The patient demonstrated no superficial wounds or problems with the wound healing during the postoperative process. As a result, the patient was having a significant amount of pain as well as obvious incidence of clinical infection. When I was consulted to the service, I suspected that there was likely infection seeding from the hardware or the bone. From that standpoint, a bone scan was obtained demonstrating some indications of opaque of the radiotracer with technetium-99 in the transverse distal tibial fracture as well as the proximal fracture in the diaphysis tibia. Discussion was held with Dr. Carrera who recommended getting a CT scan and appreciated if we could get some bone biopsies. 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 At this time, we decided in order to better effectively manage this to proceed with a bone biopsy in the level of the area that the bone scan demonstrated there is potential infection and possible nonunion. As a result, all risks, complications, and benefits of surgical intervention at the time were discussed with the patient and his fiancee including, but not limited to, infection, hematoma, seroma, possibility of delayed wound healing, non-wound healing, and possible failure of surgical intervention. The goal of today's intervention is to determine if there is nonunion versus osteomyelitis versus increased cellulitis. As a result, no guarantees were provided as to the outcome of our surgical intervention today. With that, we decided to proceed. DESCRIPTION OF PROCEDURE AND FINDINGS: The patient was brought into the operating room and placed on the operating room table in the supine position. At this time, monitored anesthesia care was administered until the patient was adequately sedated. The patient was then prepped and draped in typical sterile fashion to the level of knee of the right lower extremity. At this time, under direct visualization utilizing fluoroscopy the distal tibial fracture was visualized in the area that the bone scan and CT scan demonstrated that there was potential nonunion. Decision was made to proceed. A stab incision was made utilizing a 15-blade which was spread utilizing many hemostats. Once this was accomplished, Jamshidi needle was utilized and approximated to bone and from that standpoint was malleted into the bone. The obturator was removed from the trocar and a bone biopsy was obtained from this site. Another bone biopsy was obtained in a similar fashion just lateral to this site in order to send for culture. Once again a Jamshidi needle was then utilized to make a poke hole into the area of the diaphyseal fracture and this was malleted into the bone and a bone biopsy was obtained as well as culture from 2 separate sites of the distal tibial fracture. Following this, pressure was held until the bleeding stopped. 3-0 nylon was utilized to coapt the subcutaneous skin edges in a simple interrupted fashion. The leg was cleansed and dressing consisting of Betadine, Adaptic, 4 x 4, Kerlix, ABD, and Bruce was applied to the patient's right lower extremity. The patient was then reversed from anesthesia and returned to the postoperative anesthesia care unit with vital signs stable and vascular status intact. The patient handled the anesthesia as well as the procedure without significant complication. Postoperative orders as indicated in the patient's discharge chart.
[2023-11-27 03:40] LABS: ALBUMIN 3.6 g/dL (3.5-5.0); ANION GAP 10.2 MEQ/L (5-15); BILIRUBIN,TOTAL 0.6 mg/dL (0.2-1.3); Calcium 8.8 mg/dL (8.4-10.2); Creatinine 1 0.87 mg/dL (0.66-1.25); EST GLOMERULAR FILTRATION RATE 104.5 ML/MIN; Potassium 3.7 mmol/L (3.5-5.1)
[2023-11-27 03:57] LABS: Absolute Neutrophil Ct (ANC) 4.02 x10^3/uL (1.78-5.38); BASOPHIL % 0.9 % (0.2-1.2); Basophil (Absolute #) 0.06 x10^3/uL (0.01-0.08); Eosinophil % 5.4 % (0.8-7.0); Eosinophil (Absolute #) 0.37 x10^3/uL (0.04-0.54); Hematocrit 34.3 % (40.1-51.0); Hemoglobin 11.6 g/dL (13.7-17.5); IMMATURE GRAN # 0.08 x10^3u/L (0.001-0.031); IMMATURE GRAN % 1.2 % (0.001-0.429); Lymphocyte (Absolute #) 1.81 x10^3/uL (1.32-3.57); Lymphocytes % 26.6 % (21.8-53.1); Mean Cell Volume 87.1 fL (79.0-92.2); Mean Corpuscular Hemoglobin 29.4 pg (25.7-32.2); Mean Corpuscular Hgb Concent. 33.8 g/dL (32.3-36.5); Mean Platelet Volume 12.1 fL (9.4-12.4); Monocyte (Absolute #) 0.46 x10^3/uL (0.30-0.82); Monocytes % 6.8 % (5.3-12.2); Neutrophil % 59.1 % (34.0-67.9); Platelet Count 222 x10^3/uL (163-337); Red Blood Count 3.94 x10^6/uL (4.63-6.08); Red Cell Distribution Width 12.3 % (11.6-14.4); White Blood Count 6.8 x10^3/uL (4.23-9.07)
--- NOTE | 2023-11-27 12:24 | PCM.NOTE ---
Date and Time: 11/27/23 1217 Subjective Assessment: 11/27/23 Mr. Reina is a 53 year old male with a pmhx of DMII, Left and Right ankle ORIF (06/27), HLD, and HTN. Admitted 11/21/23 for cellulitis of the right ankle. Onset was approximately 3 days prior to admission. Patient reports pain, warmth, fevers, and swelling. Right ankle Xray showing healing/healed distal tibia/fibula fraxures with orthopedic hardware intact. The cellulitis appears inferential around the ankle. The involved extremities neurovascular tact distally compartments are soft cap refill less than 2 seconds. Patient septic on presentation with tachycardia, fever, lactic acid at 2.2, and leukocytosis with WBC at 13.5. Given vanc/zosyn in ED. Podiatry consulted - venous dopplers olesya cruz applied with plans for bone scan to evaluate for OM. Bone scan showing uptake in area of concern possibly indicating concern for OM. Plan for bone biopsy and cultures per podiatry 11/24/23. All cultures are back and pending podiatry plan of care and needs. He continues to be on Vancomycin and Zosyn IV. Pain well controlled at this time. Denies any further concerns. - Review of Systems Constitutional: No Fever, No Chills Eyes: No Symptoms Ears, Nose, & Throat: No Symptoms Respiratory: No Cough, No Short Of Breath Cardiac: No Chest Pain, No Edema, No Syncope Abdominal/Gastrointestinal: No Abdominal Pain, No Nausea, No Vomiting, No Diarrhea Genitourinary Symptoms: No Dysuria Musculoskeletal: Other (RLE wrapped), No Back Pain, No Neck Pain Skin: No Rash Neurological: No Dizziness, No Focal Weakness, No Sensory Changes Psychological: No Symptoms Endocrine: No Symptoms Hematologic/Lymphatic: No Symptoms Immunological/Allergic: No Symptoms Objective Exam General Appearance: no apparent distress, alert Neurologic Exam: alert, oriented x 3, cooperative, normal mood/affect, nml cerebellar function, sensation nml, No motor deficits Skin Exam: normal color, warm, dry Wound Assessment: Skin/Wound Assessment Wound/Incision Assessment Start: 11/22/23 00:00 Text: Status: Active Freq: Q6H Protocol: Document 11/27/23 08:00 RF (Rec: 11/27/23 08:21 RF [id number]) Wound/Incision Assessment right lower leg Wound Assessment Shift Assessment Wound Type CELLULITIS Wound Stage Non Pressure Wound Dressing Status Dry & Intact Drainage Amount None Drainage Odor None/Absent Comment Dressing remains C/D/I, Podiatry to manage dressing changes-REMAINS TRUE Wound Photo Photo Taken No Eye Exam: PERRL, EOMI, eyes nml inspection Ears, Nose, Throat Exam: normal ENT inspection, pharynx normal, moist mucous membranes Neck Exam: normal inspection, non-tender, supple, full range of motion Respiratory Exam: normal breath sounds, lungs clear, No respiratory distress Cardiovascular Exam: regular rate/rhythm, normal heart sounds Gastrointestinal/Abdomen Exam: soft, No tenderness, No mass Extremity Exam: normal inspection, normal range of motion, tenderness (RLE wrapped and elevated on pillow) Back Exam: normal inspection, normal range of motion, No CVA tenderness, No vertebral tenderness Male Genitalia Exam: deferred Rectal Exam: deferred Objective Data Vital Signs: Vital Signs - 24 hr Temp Pulse Resp BP Pulse Ox 11/27/23 08:00 99.1 F 72 18 129/68 96 11/27/23 07:09 74 18 95 11/27/23 04:00 97.3 F 76 18 129/69 95 11/27/23 00:00 97.2 F 74 18 133/68 96 11/26/23 20:00 97.3 F 78 18 146/71 96 11/26/23 18:58 89 16 97 11/26/23 16:00 97.7 F 69 17 142/75 97 Pain Assessment - Last Documented Pain Intensity 0 Pain Scale Used 0-10 Pain Scale Intake and Output: Intake & Output 11/25/23 11/26/23 11/27/23 11/28/23 11:59 11:59 11:59 11:59 Intake Total 4349 4081 4270 Output Total 1885 3650 3650 Balance 1723 065 692 Lab Results: Lab Results-Last 24 Hours 11/27/23 11/27/23 Range/Units 03:15 03:15 WBC 6.8 (4.23-9.07) x10^3/uL RBC 3.94 L (4.63-6.08) x10^6/uL Hgb 11.6 L (13.7-17.5) g/dL Hct 34.3 L (40.1-51.0) % MCV 87.1 (79.0-92.2) fL MCH 29.4 (25.7-32.2) pg MCHC 33.8 (32.3-36.5) g/dL RDW 12.3 (11.6-14.4) % Plt Count 222 (163-337) x10^3/uL MPV 12.1 (9.4-12.4) fL Gran % 59.1 (34.0-67.9) % Immature Gran % (Auto) 1.2 H (0.001-0.429) % Nucleat RBC Rel Count 0.0 (0.00-0.2) % Eos # (Auto) 0.37 (0.04-0.54) x10^3/uL Immature Gran # (Auto) 0.08 H (0.001-0.031) x10^3u/L Absolute Lymphs (auto) 1.81 (1.32-3.57) x10^3/uL Absolute Monos (auto) 0.46 (0.30-0.82) x10^3/uL Absolute Nucleated RBC 0.00 (0.00-0.012) x10^3u/L Lymphocytes % 26.6 (21.8-53.1) % Monocytes % 6.8 (5.3-12.2) % Eosinophils % 5.4 (0.8-7.0) % Basophils % 0.9 (0.2-1.2) % Absolute Granulocytes 4.02 (1.78-5.38) x10^3/uL Basophils # 0.06 (0.01-0.08) x10^3/uL Sodium 137 (135-145) mmol/L Potassium 3.7 (3.5-5.1) mmol/L Chloride 103 (98-107) mmol/L Carbon Dioxide 28 (22-30) mmol/L Anion Gap 10.2 (5-15) MEQ/L BUN 12 (9-20) mg/dL Creatinine 0.87 (0.66-1.25) mg/dL Estimated GFR 104.5 ML/MIN Glucose 110 H (74-106) mg/dL Calcium 8.8 (8.4-10.2) mg/dL Total Bilirubin 0.60 (0.2-1.3) mg/dL AST 51 (17-59) U/L ALT 54 H (0-50) U/L Alkaline Phosphatase 76 (38-126) U/L Serum Total Protein 7.0 (6.3-8.2) g/dL Albumin 3.6 (3.5-5.0) g/dL Multi-Disciplinary Progress Notes: Multi-Disciplinary Progress Notes 11/27/23 11:05 Case Management Note by Daisy Calvert PATIENT CONTINUES TO PLAN TO DC HOME WITH SIG OTHER AT TIME OF DC. HE HAS WALKER AND KNEE SCOOTER AT HOME TO USE. UR REVIEW CHECKING WITH PATIENT'S [place] TO SEE WHAT THEY CAN ARRANGE FOR HHC AND HOME INFUSIONS. WILL WORK ON GETTING THIS SET UP ONCE A BETTER PLAN FOR DC ESTABLISHED Initialized on 11/27/23 11:05 - END OF NOTE Assessment/Plan (1) Sepsis Current Visit: Yes Status: Acute Assessment & Plan: -Met criteria with elevated WBC, fever, tachycardia, elevated LA, and known source of infection - cellulitis, OM -Vanc/zosyn started in ED- continue -UA negative -IVF - all cultures back (2) Cellulitis Current Visit: Yes Status: Acute Assessment & Plan: -Podiatry note reviewed - agree with plan for PICC placement/bone biopsy/cultures of right tibia as bone scan indicates uptake in affected area possibly indicating OM -patient's senior firewall engineer Dr. Ford notified and agreeable. Weight bearing to tolerance of RLE following bone biopsy. Code(s): L03.90 - CELLULITIS, UNSPECIFIED (3) Cough Current Visit: Yes Status: Acute Assessment & Plan: -CXR clear -RA -Lungs clear on auscultation/no fever -Resp viral panel -pulmicort/robitussin - improving Code(s): R05.9 - COUGH, UNSPECIFIED (4) HLD (hyperlipidemia) Current Visit: Yes Status: Chronic Assessment & Plan: -continue statin Code(s): E78.5 - HYPERLIPIDEMIA, UNSPECIFIED (5) HTN (hypertension) Current Visit: Yes Status: Chronic Assessment & Plan: -stable continue home meds Code(s): I10 - ESSENTIAL (PRIMARY) HYPERTENSION (6) Type 2 diabetes mellitus Current Visit: Yes Status: Acute Assessment & Plan: -SSI/glargine -ADA diet -accuchecks ac/hs -A1c at 9.11 11/12/23 - uncontrolled -discussed the importance of good glycemic control for healing (7) Obesity (BMI 30-39.9) Current Visit: Yes Status: Acute Assessment & Plan: advised ADA diet and exercise control VTE: lovenox PPI: Protonix Dispo: pending podiatry Code(s): E66.9 - OBESITY, UNSPECIFIED
[2023-11-28 05:10] LABS: Absolute Neutrophil Ct (ANC) 3.34 x10^3/uL (1.78-5.38); Basophil (Absolute #) 0.06 x10^3/uL (0.01-0.08); Eosinophil % 4.4 % (0.8-7.0); Eosinophil (Absolute #) 0.27 x10^3/uL (0.04-0.54); Hematocrit 34.5 % (40.1-51.0); Hemoglobin 11.3 g/dL (13.7-17.5); IMMATURE GRAN # 0.09 x10^3u/L (0.001-0.031); IMMATURE GRAN % 1.5 % (0.001-0.429); Lymphocyte (Absolute #) 1.88 x10^3/uL (1.32-3.57); Lymphocytes % 30.6 % (21.8-53.1); Mean Cell Volume 87.3 fL (79.0-92.2); Mean Corpuscular Hemoglobin 28.6 pg (25.7-32.2); Mean Corpuscular Hgb Concent. 32.8 g/dL (32.3-36.5); Mean Platelet Volume 11.6 fL (9.4-12.4); Monocyte (Absolute #) 0.51 x10^3/uL (0.30-0.82); Monocytes % 8.3 % (5.3-12.2); Neutrophil % 54.2 % (34.0-67.9); Platelet Count 235 x10^3/uL (163-337); Red Blood Count 3.95 x10^6/uL (4.63-6.08); Red Cell Distribution Width 12.1 % (11.6-14.4); White Blood Count 6.2 x10^3/uL (4.23-9.07)
[2023-11-28 05:40] LABS: ALBUMIN 3.6 g/dL (3.5-5.0); ANION GAP 9.4 MEQ/L (5-15); BILIRUBIN,TOTAL 0.7 mg/dL (0.2-1.3); Calcium 8.9 mg/dL (8.4-10.2); Creatinine 1 0.89 mg/dL (0.66-1.25); EST GLOMERULAR FILTRATION RATE 103.8 ML/MIN; Total Protein 6.9 g/dL (6.3-8.2)
[2023-11-28 05:44] LABS: Potassium 3.8 mmol/L (3.5-5.1)
[2023-11-28] MEDS: PIPERACILLIN/TAZOBACTAM 3.375 GM in Sodium Chloride 100ML MINI-BAG PLUS 100 ML IV SCH (08:17)
[2023-11-28] MEDS ORDERED: DUONEB 0.5-3 MG/3 ml Neb IH PRN (08:25)
--- NOTE | 2023-11-28 09:34 | PCM.NOTE ---
Date and Time: 11/28/23 0933 Subjective Assessment: 11/27/23 Mr. Reina is a 53 year old male with a pmhx of DMII, Left and Right ankle ORIF (06/27), HLD, and HTN. Admitted 11/21/23 for cellulitis of the right ankle. Onset was approximately 3 days prior to admission. Patient reports pain, warmth, fevers, and swelling. Right ankle Xray showing healing/healed distal tibia/fibula fraxures with orthopedic hardware intact. The cellulitis appears inferential around the ankle. The involved extremities neurovascular tact distally compartments are soft cap refill less than 2 seconds. Patient septic on presentation with tachycardia, fever, and leukocytosis with WBC at 13.5. Given vanc/zosyn in ED. Podiatry consulted - venous dopplers negative, unna boot kurtis lied with plans for bone scan to evaluate for OM. Bone scan showing uptake in area of concern possibly indicating concern for OM. Plan for bone biopsy and cultures per podiatry 11/24/23. All cultures are back and pending podiatry plan of care and needs. He continues to be on Vancomycin and Zosyn IV. Pain well controlled at this time. Denies any further concerns. 11/28/23 Pt resting in bed. Complains of cough when talking. His Covid, flu and RSV were negative. DuoNeb treatments started today to see if cough improves. Pt can not leave hospital at this time due to not having a ride for his outpatient antibiotic treatments for osteomyelitis/ cellulitis of right ankle. PICC line in place. Pain remains well controlled and denies any other concerns. - Review of Systems Constitutional: No Fever, No Chills Eyes: No Symptoms Ears, Nose, & Throat: No Symptoms Respiratory: Cough, No Short Of Breath Cardiac: No Chest Pain, No Edema, No Syncope Abdominal/Gastrointestinal: No Abdominal Pain, No Nausea, No Vomiting, No Diarrhea Genitourinary Symptoms: No Dysuria Musculoskeletal: No Back Pain, No Neck Pain Skin: Other (RLE wrapped), No Rash Neurological: No Dizziness, No Focal Weakness, No Sensory Changes Psychological: No Symptoms Endocrine: No Symptoms Hematologic/Lymphatic: No Symptoms Immunological/Allergic: No Symptoms Objective Exam General Appearance: no apparent distress, alert, obese Neurologic Exam: alert, oriented x 3, cooperative, normal mood/affect, nml cerebellar function, sensation nml, No motor deficits Skin Exam: normal color, warm, dry Wound Assessment: Skin/Wound Assessment Wound/Incision Assessment Start: 11/22/23 00:00 Text: Status: Active Freq: Q6H Protocol: Document 11/28/23 02:00 MM (Rec: 11/28/23 02:49 MM [id number]) Wound/Incision Assessment right lower leg Wound Assessment Shift Assessment Wound Type CELLULITIS Wound Stage Non Pressure Wound Dressing Status Dry & Intact Drainage Amount None Drainage Odor None/Absent Comment Dressing remains C/D/I, Podiatry to manage dressing changes-REMAINS TRUE Wound Photo Photo Taken No Eye Exam: PERRL, EOMI, eyes nml inspection Ears, Nose, Throat Exam: normal ENT inspection, pharynx normal, moist mucous membranes Neck Exam: normal inspection, non-tender, supple, full range of motion Respiratory Exam: normal breath sounds, lungs clear, No respiratory distress Cardiovascular Exam: regular rate/rhythm, normal heart sounds Gastrointestinal/Abdomen Exam: soft, No tenderness, No mass Extremity Exam: normal inspection, normal range of motion, other (RLE wrapped) Back Exam: normal inspection, normal range of motion, No CVA tenderness, No vertebral tenderness Male Genitalia Exam: deferred Rectal Exam: deferred Objective Data Vital Signs: Vital Signs - 24 hr Temp Pulse Resp BP Pulse Ox 11/28/23 08:00 97.8 F 67 16 148/72 94 L 11/28/23 07:14 72 16 98 11/28/23 04:00 97.2 F 81 16 157/87 94 L 11/27/23 19:13 86 16 97 11/27/23 18:42 97.2 F 70 16 142/60 99 11/27/23 16:00 98.7 F 68 18 135/71 97 11/27/23 12:00 97.9 F 75 20 168/93 97 Pain Assessment - Last Documented Pain Intensity 0 Pain Scale Used 0-10 Pain Scale Intake and Output: Intake & Output 11/25/23 11/26/23 11/27/23 11/28/23 11:59 11:59 11:59 11:59 Intake Total 4349 4081 4270 3433 Output Total 2675 3650 3650 1400 Balance 1674 673 419 9485 Weight 121.2 kg Lab Results: Lab Results-Last 24 Hours 11/28/23 11/28/23 Range/Units 05:05 05:05 WBC 6.2 (4.23-9.07) x10^3/uL RBC 3.95 L (4.63-6.08) x10^6/uL Hgb 11.3 L (13.7-17.5) g/dL Hct 34.5 L (40.1-51.0) % MCV 87.3 (79.0-92.2) fL MCH 28.6 (25.7-32.2) pg MCHC 32.8 (32.3-36.5) g/dL RDW 12.1 (11.6-14.4) % Plt Count 235 (163-337) x10^3/uL MPV 11.6 (9.4-12.4) fL Gran % 54.2 (34.0-67.9) % Immature Gran % (Auto) 1.5 H (0.001-0.429) % Nucleat RBC Rel Count 0.0 (0.00-0.2) % Eos # (Auto) 0.27 (0.04-0.54) x10^3/uL Immature Gran # (Auto) 0.09 H (0.001-0.031) x10^3u/L Absolute Lymphs (auto) 1.88 (1.32-3.57) x10^3/uL Absolute Monos (auto) 0.51 (0.30-0.82) x10^3/uL Absolute Nucleated RBC 0.00 (0.00-0.012) x10^3u/L Lymphocytes % 30.6 (21.8-53.1) % Monocytes % 8.3 (5.3-12.2) % Eosinophils % 4.4 (0.8-7.0) % Basophils % 1.0 (0.2-1.2) % Absolute Granulocytes 3.34 (1.78-5.38) x10^3/uL Basophils # 0.06 (0.01-0.08) x10^3/uL Sodium 137 (135-145) mmol/L Potassium 3.8 (3.5-5.1) mmol/L Chloride 104 (98-107) mmol/L Carbon Dioxide 27 (22-30) mmol/L Anion Gap 9.4 (5-15) MEQ/L BUN 12 (9-20) mg/dL Creatinine 0.89 (0.66-1.25) mg/dL Estimated GFR 103.8 ML/MIN Glucose 118 H (74-106) mg/dL Calcium 8.9 (8.4-10.2) mg/dL Total Bilirubin 0.70 (0.2-1.3) mg/dL AST 51 (17-59) U/L ALT 58 H (0-50) U/L Alkaline Phosphatase 63 (38-126) U/L Serum Total Protein 6.9 (6.3-8.2) g/dL Albumin 3.6 (3.5-5.0) g/dL Multi-Disciplinary Progress Notes: Multi-Disciplinary Progress Notes 11/28/23 08:09 Case Management Note by Daisy Calvert NO CHANGE IN DC PLANS AT THIS TIME- STILL WAITING ON BONE CULTURE RESULTS Initialized on 11/28/23 08:09 - END OF NOTE 11/27/23 17:07 Nutrition Note by Samuel Diaz Removed pt's dressing. Pt was seen by Dr Ugarte. Applied iodine to incision sites. Covered sites with adaptic and sterile 4x4 gauze. Applied unna boot to level of tibial tuberosity. Wrapped with kerlix and coban to same level. Pt tolerated well. Initialized on 11/27/23 17:07 - END OF NOTE 11/27/23 14:18 Case Management Note by Daisy Calvert S/W LAB- PATIENT HAS 4 BONES CULTURES ALL STILL PENDING AT THIS TIME Initialized on 11/27/23 14:18 - END OF NOTE 11/27/23 11:05 Case Management Note by Daisy Calvert PATIENT CONTINUES TO PLAN TO DC HOME WITH SIG OTHER AT TIME OF DC. HE HAS WALKER AND KNEE SCOOTER AT HOME TO USE. UR REVIEW CHECKING WITH PATIENT'S [place] TO SEE WHAT THEY CAN ARRANGE FOR HHC AND HOME INFUSIONS. WILL WORK ON GETTING THIS SET UP ONCE A BETTER PLAN FOR DC ESTABLISHED Initialized on 11/27/23 11:05 - END OF NOTE Assessment/Plan (1) Sepsis Current Visit: Yes Status: Acute (2) Cellulitis Current Visit: Yes Status: Acute Code(s): L03.90 - CELLULITIS, UNSPECIFIED (3) Cough Current Visit: Yes Status: Acute Code(s): R05.9 - COUGH, UNSPECIFIED (4) HLD (hyperlipidemia) Current Visit: Yes Status: Chronic Code(s): E78.5 - HYPERLIPIDEMIA, UNSPECIFIED (5) HTN (hypertension) Current Visit: Yes Status: Chronic Code(s): I10 - ESSENTIAL (PRIMARY) HYPERTENSION (6) Type 2 diabetes mellitus Current Visit: Yes Status: Acute (7) Obesity (BMI 30-39.9) Current Visit: Yes Status: Acute Assessment & Plan: (1) Sepsis Current Visit: Yes Status: Acute Assessment & Plan: -Met criteria with elevated WBC, fever, tachycardia, and known source of infection - cellulitis, OM -Vanc/zosyn started in ED- continue -UA negative -IVF - all cultures back (2) Cellulitis Current Visit: Yes Status: Acute Assessment & Plan: -Podiatry note reviewed - agree with plan for PICC placement/bone biopsy/cultures of right tibia as bone scan indicates uptake in affected area possibly indicating OM -patient's apartment house manager Dr. Ford notified and agreeable. Weight bearing to tolerance of RLE following bone biopsy. Code(s): L03.90 - CELLULITIS, UNSPECIFIED (3) Cough Current Visit: Yes Status: Acute Assessment & Plan: -CXR clear -RA -Lungs clear on auscultation/no fever -Resp viral panel -pulmicort/robitussin - improving 11/28/23- DuoNeb Treatments started today Code(s): R05.9 - COUGH, UNSPECIFIED (4) HLD (hyperlipidemia) Current Visit: Yes Status: Chronic Assessment & Plan: -continue statin Code(s): E78.5 - HYPERLIPIDEMIA, UNSPECIFIED (5) HTN (hypertension) Current Visit: Yes Status: Chronic Assessment & Plan: -stable continue home meds Code(s): I10 - ESSENTIAL (PRIMARY) HYPERTENSION (6) Type 2 diabetes mellitus Current Visit: Yes Status: Acute Assessment & Plan: -SSI/glargine -ADA diet -accuchecks ac/hs -A1c at 9.11 11/12/23 - uncontrolled -discussed the importance of good glycemic control for healing (7) Obesity (BMI 30-39.9) Current Visit: Yes Status: Acute Assessment & Plan: advised ADA diet and exercise control VTE: lovenox PPI: Protonix Dispo: pending podiatry Code(s): E66.9 - OBESITY, UNSPECIFIED Code(s): E66.9 - OBESITY, UNSPECIFIED
[2023-11-28] MEDS: PULMICORT 0.5 MG/2 ML RESPULES IH SCH (10:29)
[2023-11-28] MEDS: Protonix 40MG Tablet PO SCH (10:40)
--- NOTE | 2023-11-28 14:36 | PCM.NOTE ---
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 Patient doing well at bedside pain relatively controlled with mild intermittent pain to right lower extremity in areas of bone biopsy. Patient awaiting bone cultures at this time. Denies any other pedal complaints. Physical Exam - Narrative Narrative Physical Exam: Podiatry Physical Exam Objective Data Vital Signs: Vital Signs - 24 hr Temp Pulse Resp BP Pulse Ox 11/28/23 12:00 98.6 F 85 17 147/80 97 11/28/23 08:00 97.8 F 67 16 148/72 94 L 11/28/23 07:14 72 16 98 11/28/23 04:00 97.2 F 81 16 157/87 94 L 11/27/23 19:13 86 16 97 11/27/23 18:42 97.2 F 70 16 142/60 99 11/27/23 16:00 98.7 F 68 18 135/71 97 Pain Assessment - Last Documented Pain Intensity 0 Pain Scale Used 0-10 Pain Scale Intake and Output: Intake & Output 11/26/23 11/27/23 11/28/23 11/29/23 11:59 11:59 11:59 11:59 Intake Total 4081 4270 3553 680 Output Total 3650 3650 1800 Balance 139 474 6620 680 Weight 121.2 kg Lab Results: Lab Results-Last 24 Hours 11/28/23 11/28/23 Range/Units 05:05 05:05 WBC 6.2 (4.23-9.07) x10^3/uL RBC 3.95 L (4.63-6.08) x10^6/uL Hgb 11.3 L (13.7-17.5) g/dL Hct 34.5 L (40.1-51.0) % MCV 87.3 (79.0-92.2) fL MCH 28.6 (25.7-32.2) pg MCHC 32.8 (32.3-36.5) g/dL RDW 12.1 (11.6-14.4) % Plt Count 235 (163-337) x10^3/uL MPV 11.6 (9.4-12.4) fL Gran % 54.2 (34.0-67.9) % Immature Gran % (Auto) 1.5 H (0.001-0.429) % Nucleat RBC Rel Count 0.0 (0.00-0.2) % Eos # (Auto) 0.27 (0.04-0.54) x10^3/uL Immature Gran # (Auto) 0.09 H (0.001-0.031) x10^3u/L Absolute Lymphs (auto) 1.88 (1.32-3.57) x10^3/uL Absolute Monos (auto) 0.51 (0.30-0.82) x10^3/uL Absolute Nucleated RBC 0.00 (0.00-0.012) x10^3u/L Lymphocytes % 30.6 (21.8-53.1) % Monocytes % 8.3 (5.3-12.2) % Eosinophils % 4.4 (0.8-7.0) % Basophils % 1.0 (0.2-1.2) % Absolute Granulocytes 3.34 (1.78-5.38) x10^3/uL Basophils # 0.06 (0.01-0.08) x10^3/uL Sodium 137 (135-145) mmol/L Potassium 3.8 (3.5-5.1) mmol/L Chloride 104 (98-107) mmol/L Carbon Dioxide 27 (22-30) mmol/L Anion Gap 9.4 (5-15) MEQ/L BUN 12 (9-20) mg/dL Creatinine 0.89 (0.66-1.25) mg/dL Estimated GFR 103.8 ML/MIN Glucose 118 H (74-106) mg/dL Calcium 8.9 (8.4-10.2) mg/dL Total Bilirubin 0.70 (0.2-1.3) mg/dL AST 51 (17-59) U/L ALT 58 H (0-50) U/L Alkaline Phosphatase 63 (38-126) U/L Serum Total Protein 6.9 (6.3-8.2) g/dL Albumin 3.6 (3.5-5.0) g/dL Multi-Disciplinary Progress Notes: Multi-Disciplinary Progress Notes 11/28/23 08:09 Case Management Note by Daisy Calvert NO CHANGE IN DC PLANS AT THIS TIME- STILL WAITING ON BONE CULTURE RESULTS Initialized on 11/28/23 08:09 - END OF NOTE 11/27/23 17:07 Nutrition Note by Samuel Diaz Removed pt's dressing. Pt was seen by Dr Ugarte. Applied iodine to incision sites. Covered sites with adaptic and sterile 4x4 gauze. Applied unna boot to level of tibial tuberosity. Wrapped with kerlix and coban to same level. Pt tolerated well. Initialized on 11/27/23 17:07 - END OF NOTE Assessment/Plan (1) Pilon fracture of right tibia Current Visit: Yes Status: Acute Assessment & Plan: CT demonstrating non union of anterior chaput fragment Bone scan with significantly increased signal surrounding transverse distal diaphyseal/meataphyseal junction as well as along the spiral fracture through diaphysis. Patient is progressing without complication s/p bone biopsies for better assessment. Code(s): S82.871A - DISPLACED PILON FRACTURE OF RIGHT TIBIA, INIT FOR CLOS FX (2) Ankle pain, right Current Visit: No Status: Acute Assessment & Plan: improved significantly Code(s): M25.571 - PAIN IN RIGHT ANKLE AND JOINTS OF RIGHT FOOT (3) Cellulitis Current Visit: Yes Status: Acute Assessment & Plan: resolving Code(s): L03.90 - CELLULITIS, UNSPECIFIED (4) Leukocytosis Current Visit: Yes Status: Acute Assessment & Plan: resolved Code(s): D72.829 - ELEVATED WHITE BLOOD CELL COUNT, UNSPECIFIED (5) Sepsis Current Visit: Yes Status: Acute Assessment & Plan: resolved (6) Type 2 diabetes mellitus Current Visit: Yes Status: Acute
[2023-11-28] MEDS: TROUGH DRUG LEVELS IJ ONE (17:44)
[2023-11-29 03:22] LABS: Absolute Neutrophil Ct (ANC) 2.82 x10^3/uL (1.78-5.38); BASOPHIL % 0.9 % (0.2-1.2); Basophil (Absolute #) 0.04 x10^3/uL (0.01-0.08); Eosinophil % 2.8 % (0.8-7.0); Eosinophil (Absolute #) 0.13 x10^3/uL (0.04-0.54); Hemoglobin 14.3 g/dL (13.7-17.5); IMMATURE GRAN # 0.04 x10^3u/L (0.001-0.031); IMMATURE GRAN % 0.9 % (0.001-0.429); Lymphocyte (Absolute #) 1.29 x10^3/uL (1.32-3.57); Lymphocytes % 27.9 % (21.8-53.1); Mean Cell Volume 86.9 fL (79.0-92.2); Mean Corpuscular Hemoglobin 28.9 pg (25.7-32.2); Mean Corpuscular Hgb Concent. 33.3 g/dL (32.3-36.5); Mean Platelet Volume 10.2 fL (9.4-12.4); Monocytes % 6.5 % (5.3-12.2); Platelet Count 203 x10^3/uL (163-337); Red Blood Count 4.95 x10^6/uL (4.63-6.08); Red Cell Distribution Width 12.2 % (11.6-14.4); White Blood Count 4.6 x10^3/uL (4.23-9.07)
[2023-11-29 03:35] LABS: ALBUMIN 3.6 g/dL (3.5-5.0); ANION GAP 10.8 MEQ/L (5-15); BILIRUBIN,TOTAL 0.5 mg/dL (0.2-1.3); Calcium 8.8 mg/dL (8.4-10.2); Creatinine 1 0.97 mg/dL (0.66-1.25); EST GLOMERULAR FILTRATION RATE 94.5 ML/MIN; Potassium 3.9 mmol/L (3.5-5.1)
[2023-11-29] MEDS: Robitussin-Dm Syrup PO PRN (10:40)
--- NOTE | 2023-11-29 12:15 | PCM.NOTE ---
Date and Time: 11/29/23 1208 Subjective Assessment: 11/27/23 Mr. Reina is a 53 year old male with a pmhx of DMII, Left and Right ankle ORIF (06/27), HLD, and HTN. Admitted 11/21/23 for cellulitis of the right ankle. Onset was approximately 3 days prior to admission. Patient reports pain, warmth, fevers, and swelling. Right ankle Xray showing healing/healed distal tibia/fibula fraxures with orthopedic hardware intact. The cellulitis appears inferential around the ankle. The involved extremities neurovascular tact distally compartments are soft cap refill less than 2 seconds. Patient septic on presentation with tachycardia, fever, and leukocytosis with WBC at 13.5. Given vanc/zosyn in ED. Podiatry consulted - venous dopplers negative, unna boot kurtis lied with plans for bone scan to evaluate for OM. Bone scan showing uptake in area of concern possibly indicating concern for OM. Plan for bone biopsy and cultures per podiatry 11/24/23. All cultures are back and pending podiatry plan of care and needs. He continues to be on Vancomycin and Zosyn IV. Pain well controlled at this time. Denies any further concerns. 11/28/23 Pt resting in bed. Complains of cough when talking. His Covid, flu and RSV were negative. DuoNeb treatments started today to see if cough improves. Pt can not leave hospital at this time due to not having a ride for his outpatient antibiotic treatments for osteomyelitis/ cellulitis of right ankle. PICC line in place. Pain remains well controlled and denies any other concerns. 11/29/23 Pt resting in bed. He continues to have somewhat of a cough but feels breathing treatments are helping. He will not have a way to get home until Monday. He is not able to leave until that time. All cultures so far negative. Fungus culture pending. Continue IV antibiotics. He denies any further concerns at this time. - Review of Systems Constitutional: No Fever, No Chills Eyes: No Symptoms Ears, Nose, & Throat: No Symptoms Respiratory: Cough, No Short Of Breath Cardiac: No Chest Pain, No Edema, No Syncope Abdominal/Gastrointestinal: No Abdominal Pain, No Nausea, No Vomiting, No Diarrhea Genitourinary Symptoms: No Dysuria Musculoskeletal: No Back Pain, No Neck Pain Skin: Other (RLE wrapped), No Rash Neurological: No Dizziness, No Focal Weakness, No Sensory Changes Psychological: No Symptoms Endocrine: No Symptoms Hematologic/Lymphatic: No Symptoms Immunological/Allergic: No Symptoms Objective Exam General Appearance: no apparent distress, alert Neurologic Exam: alert, oriented x 3, cooperative, normal mood/affect, nml cerebellar function, sensation nml, No motor deficits Skin Exam: normal color, warm, dry Wound Assessment: Skin/Wound Assessment Wound/Incision Assessment Start: 11/22/23 00:00 Text: Status: Active Freq: Q6H Protocol: Document 11/29/23 08:00 AR (Rec: 11/29/23 10:44 AR [id number]) Wound/Incision Assessment right lower leg Wound Assessment Shift Assessment Wound Type CELLULITIS Wound Stage Non Pressure Wound Dressing Status Dry & Intact Drainage Amount None Drainage Odor None/Absent Comment Dressing remains C/D/I, Podiatry to manage dressing changes-REMAINS TRUE Wound Photo Photo Taken No Eye Exam: PERRL, EOMI, eyes nml inspection Ears, Nose, Throat Exam: normal ENT inspection, pharynx normal, moist mucous membranes Neck Exam: normal inspection, non-tender, supple, full range of motion Respiratory Exam: normal breath sounds, lungs clear, No respiratory distress Cardiovascular Exam: regular rate/rhythm, normal heart sounds Gastrointestinal/Abdomen Exam: soft, No tenderness, No mass Extremity Exam: normal inspection, normal range of motion, other (RLE wrapped) Back Exam: normal inspection, normal range of motion, No CVA tenderness, No vertebral tenderness Male Genitalia Exam: deferred Rectal Exam: deferred Objective Data Vital Signs: Vital Signs - 24 hr Temp Pulse Resp BP Pulse Ox 11/29/23 07:12 96.9 F 73 16 134/68 97 11/29/23 07:05 68 18 95 11/29/23 03:53 97.0 F 66 18 140/74 96 11/29/23 00:00 97.7 F 71 18 135/76 95 11/28/23 20:00 97.3 F 78 18 121/78 96 11/28/23 18:38 85 18 99 11/28/23 16:00 98.2 F 68 17 131/75 98 Pain Assessment - Last Documented Pain Intensity 0 Pain Scale Used 0-10 Pain Scale Intake and Output: Intake & Output 11/27/23 11/28/23 11/29/23 11/30/23 11:59 11:59 11:59 11:59 Intake Total 427 3558 3294 Output Total 3653 7240 500 Balance 620 7921 2974 Weight 121.2 kg Lab Results: Lab Results-Last 24 Hours 11/28/23 11/29/23 11/29/23 Range/Units 17:26 03:20 03:20 WBC 4.6 (4.23-9.07) x10^3/uL RBC 4.95 (4.63-6.08) x10^6/uL Hgb 14.3 D (13.7-17.5) g/dL Hct 43.0 (40.1-51.0) % MCV 86.9 (79.0-92.2) fL MCH 28.9 (25.7-32.2) pg MCHC 33.3 (32.3-36.5) g/dL RDW 12.2 (11.6-14.4) % Plt Count 203 (163-337) x10^3/uL MPV 10.2 (9.4-12.4) fL Gran % 61.0 (34.0-67.9) % Immature Gran % (Auto) 0.9 H (0.001-0.429) % Nucleat RBC Rel Count 0.0 (0.00-0.2) % Eos # (Auto) 0.13 (0.04-0.54) x10^3/uL Immature Gran # (Auto) 0.04 H (0.001-0.031) x10^3u/L Absolute Lymphs (auto) 1.29 L (1.32-3.57) x10^3/uL Absolute Monos (auto) 0.30 (0.30-0.82) x10^3/uL Absolute Nucleated RBC 0.00 (0.00-0.012) x10^3u/L Lymphocytes % 27.9 (21.8-53.1) % Monocytes % 6.5 (5.3-12.2) % Eosinophils % 2.8 (0.8-7.0) % Basophils % 0.9 (0.2-1.2) % Absolute Granulocytes 2.82 (1.78-5.38) x10^3/uL Basophils # 0.04 (0.01-0.08) x10^3/uL Sodium 137 (135-145) mmol/L Potassium 3.9 (3.5-5.1) mmol/L Chloride 103 (98-107) mmol/L Carbon Dioxide 27 (22-30) mmol/L Anion Gap 10.8 (5-15) MEQ/L BUN 15 (9-20) mg/dL Creatinine 0.97 (0.66-1.25) mg/dL Estimated GFR 94.5 ML/MIN Glucose 112 H (74-106) mg/dL Calcium 8.8 (8.4-10.2) mg/dL Total Bilirubin 0.50 (0.2-1.3) mg/dL AST 48 (17-59) U/L ALT 62 H (0-50) U/L Alkaline Phosphatase 75 (38-126) U/L Serum Total Protein 7.0 (6.3-8.2) g/dL Albumin 3.6 (3.5-5.0) g/dL Vancomycin Trough 14.57 (10-20) ug/mL Multi-Disciplinary Progress Notes: Multi-Disciplinary Progress Notes 11/29/23 11:14 Case Management Note by Daisy Calvert NO CHANGE IN DC PLANS Initialized on 11/29/23 11:14 - END OF NOTE 11/29/23 11:13 Case Management Note by Daisy Calvert CALLED KATHRINE'S OFFICE TO CHECK ON BONE BIOPSIES- WILL CALL BACK Initialized on 11/29/23 11:13 - END OF NOTE Assessment/Plan (1) Sepsis Current Visit: Yes Status: Acute (2) Cellulitis Current Visit: Yes Status: Acute Code(s): L03.90 - CELLULITIS, UNSPECIFIED (3) Cough Current Visit: Yes Status: Acute Code(s): R05.9 - COUGH, UNSPECIFIED (4) HLD (hyperlipidemia) Current Visit: Yes Status: Chronic Code(s): E78.5 - HYPERLIPIDEMIA, UNSPECIFIED (5) HTN (hypertension) Current Visit: Yes Status: Chronic Code(s): I10 - ESSENTIAL (PRIMARY) HYPERTENSION (6) Type 2 diabetes mellitus Current Visit: Yes Status: Acute (7) Obesity (BMI 30-39.9) Current Visit: Yes Status: Acute Assessment & Plan: (1) Sepsis Current Visit: Yes Status: Acute Assessment & Plan: -Met criteria with elevated WBC, fever, tachycardia, and known source of infection - cellulitis, OM -Vanc/zosyn started in ED- continue -UA negative -IVF - all cultures back so far are negative, Fungus culture pending. (2) Cellulitis Current Visit: Yes Status: Acute Assessment & Plan: -Podiatry note reviewed - agree with plan for PICC placement/bone biopsy/cultures of right tibia as bone scan indicates uptake in affected area possibly indicating OM -patient's skills auditor Dr. Ford notified and agreeable. Weight bearing to tolerance of RLE following bone biopsy. 11/28 - Pt reports he is unable to leave until Monday - podiatry ok with this. - Continue IV antibiotocs Code(s): L03.90 - CELLULITIS, UNSPECIFIED (3) Cough Current Visit: Yes Status: Acute Assessment & Plan: -CXR clear -RA -Lungs clear on auscultation/no fever -Resp viral panel -pulmicort/robitussin - improving 11/28/23- DuoNeb Treatments started today Code(s): R05.9 - COUGH, UNSPECIFIED (4) HLD (hyperlipidemia) Current Visit: Yes Status: Chronic Assessment & Plan: -continue statin Code(s): E78.5 - HYPERLIPIDEMIA, UNSPECIFIED (5) HTN (hypertension) Current Visit: Yes Status: Chronic Assessment & Plan: -stable continue home meds Code(s): I10 - ESSENTIAL (PRIMARY) HYPERTENSION (6) Type 2 diabetes mellitus Current Visit: Yes Status: Acute Assessment & Plan: -SSI/glargine -ADA diet -accuchecks ac/hs -A1c at 9.11 11/12/23 - uncontrolled -discussed the importance of good glycemic control for healing (7) Obesity (BMI 30-39.9) Current Visit: Yes Status: Acute Assessment & Plan: advised ADA diet and exercise control VTE: lovenox PPI: Protonix Dispo: pending podiatry Code(s): E66.9 - OBESITY, UNSPECIFIED
[2023-11-30 04:07] LABS: ALBUMIN 3.7 g/dL (3.5-5.0); ANION GAP 12.1 MEQ/L (5-15); BILIRUBIN,TOTAL 0.7 mg/dL (0.2-1.3); Calcium 8.9 mg/dL (8.4-10.2); Creatinine 1 0.85 mg/dL (0.66-1.25); EST GLOMERULAR FILTRATION RATE 105.2 ML/MIN; Potassium 4.1 mmol/L (3.5-5.1); Total Protein 7.1 g/dL (6.3-8.2)
[2023-11-30 04:12] LABS: Hematocrit 39.4 % (40.1-51.0); Hemoglobin 13.2 g/dL (13.7-17.5); Mean Cell Volume 86.4 fL (79.0-92.2); Mean Corpuscular Hemoglobin 28.9 pg (25.7-32.2); Mean Corpuscular Hgb Concent. 33.5 g/dL (32.3-36.5); Platelet Count 244 x10^3/uL (163-337); Red Blood Count 4.56 x10^6/uL (4.63-6.08); Red Cell Distribution Width 12.3 % (11.6-14.4); White Blood Count 5.2 x10^3/uL (4.23-9.07)
[2023-11-30 07:04] VITALS: RESP 16
[2023-11-30] MEDS: Tessalon Perles 100 MG PO PRN (07:47)
--- NOTE | 2023-11-30 10:05 | PCM.DS ---
Discharge Summary Date of Admission: 11/23/23 15:33 Date of Discharge: 11/30/23 Admitting Physician: STEVEN FLOWER MD Consults: Consults on Case 11/22/23 07:19 Consult Podiatry ROUTINE Primary Care Provider: IVAN MAGALLON JOSE Allergies Allergies No Known Drug Allergies Allergy (Verified 11/07/22 17:39) Hospital Summary - Hospital Course Hospital Course: 11/27/23 Mr. Reina is a 53 year old male with a pmhx of DMII, Left and Right ankle ORIF (06/27), HLD, and HTN. Admitted 11/21/23 for cellulitis of the right ankle. Onset was approximately 3 days prior to admission. Patient reports pain, warmth, fevers, and swelling. Right ankle Xray showing healing/healed distal tibia/fibula fraxures with orthopedic hardware intact. The cellulitis appears inferential around the ankle. The involved extremities neurovascular tact distally compartments are soft cap refill less than 2 seconds. Patient septic on presentation with tachycardia, fever, and leukocytosis with WBC at 13.5. Given vanc/zosyn in ED. Podiatry consulted - venous dopplers negative, unna boot applied with plans for bone scan to evaluate for OM. Bone scan showing uptake in area of concern possibly indicating concern for OM. Plan for bone biopsy and cultures per podiatry 11/24/23. All cultures are back and pending podiatry plan of care and needs. He continues to be on Vancomycin and Zosyn IV. Pain well controlled at this time. Denies any further concerns. 11/28/23 Pt resting in bed. Complains of cough when talking. His Covid, flu and RSV were negative. DuoNeb treatments started today to see if cough improves. Pt can not l [facility] at this time due to not having a ride for his outpatient antibiotic treatments for osteomyelitis/ cellulitis of right ankle. PICC line in place. Pain remains well controlled and denies any other concerns. 11/29/23 Pt resting in bed. He continues to have somewhat of a cough but feels breathing treatments are helping. He will not have a way to get home until Monday. He is not able to leave until that time. All cultures so far negative. Fungus culture pending. Continue IV antibiotics. He denies any further concerns at this time. 11/30/23 Pt sitting up in the chair. He is feeling better today. Per podiatry he can d/c today with OP PO antibiotics. Pt wanting to d/c today and reports he will have a ride this afternoon. Will remove PICC line. Appointment made for f/u Monday. He denies any further concerns at this time. - Vitals & Intake/Output Vital Signs: Vital Signs Temperature 97.1 F 11/30/23 08:00 Pulse Rate 84 11/30/23 08:00 Respiratory Rate 16 11/30/23 08:00 Blood Pressure 151/81 11/30/23 08:00 O2 Sat by Pulse Oximetry 94 L 11/30/23 08:00 Intake & Output: Intake & Output 11/27/23 11/28/23 11/29/23 11/30/23 11:59 11:59 11:59 11:59 Intake Total 4270 3553 3414 2261 Output Total 3650 1800 1500 2575 Balance 620 1753 1914 -314 Weight 121.2 kg - Lab Result Diagrams: 11/30/23 03:50 11/30/23 03:50 Lab Results-Last 24 Hrs: Lab Results-Last 24 Hours 11/24/23 11/30/23 11/30/23 Range/Units 09:02 03:50 03:50 WBC 5.2 (4.23-9.07) x10^3/uL RBC 4.56 L (4.63-6.08) x10^6/uL Hgb 13.2 L (13.7-17.5) g/dL Hct 39.4 L (40.1-51.0) % MCV 86.4 (79.0-92.2) fL MCH 28.9 (25.7-32.2) pg MCHC 33.5 (32.3-36.5) g/dL RDW 12.3 (11.6-14.4) % Plt Count 244 (163-337) x10^3/uL MPV 11.0 (9.4-12.4) fL Sodium 137 (135-145) mmol/L Potassium 4.1 (3.5-5.1) mmol/L Chloride 102 (98-107) mmol/L Carbon Dioxide 27 (22-30) mmol/L Anion Gap 12.1 (5-15) MEQ/L BUN 13 (9-20) mg/dL Creatinine 0.85 (0.66-1.25) mg/dL Estimated GFR 105.2 ML/MIN Glucose 114 H (74-106) mg/dL Calcium 8.9 (8.4-10.2) mg/dL Total Bilirubin 0.70 (0.2-1.3) mg/dL AST 48 (17-59) U/L ALT 61 H (0-50) U/L Alkaline Phosphatase 64 (38-126) U/L Serum Total Protein 7.1 (6.3-8.2) g/dL Albumin 3.7 (3.5-5.0) g/dL Surg PTH Specimen SEE COMMENTS Micro Results-Entire Visit: Microbiology 11/24/23 09:02 Gram Stain - Final Leg - Right Gram Stain Result 1 - Final Gram Stain Result 2 - Final Anaerobic Culture - Preliminary Anaerobic Culture Result 1 - Preliminary Tissue Culture - Final Aerobic Culture Result 1 - Final 11/24/23 09:02 Gram Stain - Final Leg - Right Gram Stain Result 1 - Final Gram Stain Result 2 - Final Anaerobic Culture - Preliminary Anaerobic Culture Result 1 - Preliminary Tissue Culture - Final Aerobic Culture Result 1 - Final 11/21/23 21:40 Blood Culture - Final Blood Accuchecks Date 11/30/23 Date 11/29/23 Date 11/29/23 Date 11/29/23 Time 22:00 - Procedures and Test Procedures and Tests throughout Hospitalization: Therapy Orders & Screens 11/22/23 02:08 OT Screen per Nursing Assess ONCE Comment: Protocol Order Physician Instructions: Greater than 3 points order OT Admission Screening Reason For Exam: Triggered on Admission Diagnosis: Right ankle cellulitis Open Wound/Cellutlitis/Pressure Ulcers: Yes Acute Fx/ORIF/Change in wt bearing status: No Severe MUSCULOSKELETAL pain: No ADL Dysfunction: No Acute CVA w/Hemiparesis/Hemiplegia: No Decreased Functional Mobility/Strength: No Sprain/Strain: No Acute Post-op Mobility Dysfunction: No Total Points: 5 PT Screen per Nursing Assess ONCE Comment: Protocol Order Physician Instructions: Greater than 3 points order PT Admission Screenin Reason For Exam: Triggered on Admission Diagnosis: Right ankle cellulitis Open Wound/Cellutlitis/Pressure Ulcers: Yes Acute Fx/ORIF/Change in wt bearing status: No Severe MUSCULOSKELETAL pain: No ADL Dysfunction: No Acute CVA w/Hemiparesis/Hemiplegia: No Decreased Functional Mobility/Strength: No Sprain/Strain: No Acute Post-op Mobility Dysfunction: No Total Points: 5 Discharge Exam General Appearance: no apparent distress, alert Neurologic Exam: alert, oriented x 3, cooperative, normal mood/affect, nml cerebellar function, sensation nml, No motor deficits Eye Exam: PERRL, EOMI, eyes nml inspection Ears, Nose, Throat Exam: normal ENT inspection, pharynx normal, moist mucous membranes Neck Exam: normal inspection, non-tender, supple, full range of motion Respiratory Exam: normal breath sounds, lungs clear, No respiratory distress Cardiovascular Exam: regular rate/rhythm, normal heart sounds Gastrointestinal/Abdomen Exam: soft, No tenderness, No mass Male Genitalia Exam: deferred Rectal Exam: deferred Back Exam: normal inspection, normal range of motion, No CVA tenderness, No vertebral tenderness Extremity Exam: normal inspection, normal range of motion, other (RLE wrapped) Skin Exam: normal color, warm, dry Wound Assessment: Skin/Wound Assessment Wound/Incision Assessment Start: 11/22/23 00:00 Text: Status: Active Freq: Q6H Protocol: Document 11/30/23 08:00 AR (Rec: 11/30/23 08:40 AR [id number]) Wound/Incision Assessment right lower leg Wound Assessment Shift Assessment Wound Type BONE BX SITE Dressing Status Dry & Intact Comment Dressing remains C/D/I Wound Photo Photo Taken No Final Diagnosis/Problem List - Final Discharge Diagnosis/Problem (1) Sepsis Current Visit: Yes Status: Acute (2) Cellulitis Current Visit: Yes Status: Acute Code(s): L03.90 - CELLULITIS, UNSPECIFIED (3) Cough Current Visit: Yes Status: Acute Code(s): R05.9 - COUGH, UNSPECIFIED (4) HLD (hyperlipidemia) Current Visit: Yes Status: Chronic Code(s): E78.5 - HYPERLIPIDEMIA, UNSPECIFIED (5) HTN (hypertension) Current Visit: Yes Status: Chronic Code(s): I10 - ESSENTIAL (PRIMARY) HYPERTENSION (6) Type 2 diabetes mellitus Current Visit: Yes Status: Acute (7) Obesity (BMI 30-39.9) Current Visit: Yes Status: Acute Assessment & Plan: (1) Sepsis Current Visit: Yes Status: Acute Assessment & Plan: -Met criteria with elevated WBC, fever, tachycardia, and known source of infection - cellulitis, OM -Vanc/zosyn started in ED- continue -UA negative -IVF - all cultures back so far are negative (2) Cellulitis Current Visit: Yes Status: Acute Assessment & Plan: -Podiatry note reviewed - agree with plan for PICC placement/bone biopsy/cultures of right tibia as bone scan indicates uptake in affected area possibly indicating OM -patient's entertainment dancer Dr. Ford notified and agreeable. Weight bearing to tolerance of RLE following bone biopsy. 11/28 - Pt reports he is unable to leave until Monday - podiatry ok with this. - Continue IV antibiotics 11/29 - OK with podiatry to d/c on PO antibiotics. - Cultures negative - d/c PICC line Code(s): L03.90 - CELLULITIS, UNSPECIFIED (3) Cough Current Visit: Yes Status: Acute Assessment & Plan: -CXR clear -RA -Lungs clear on auscultation/no fever -Resp viral panel -pulmicort/robitussin - improving 11/28/23- DuoNeb Treatments started today 11/29 - stops duonebs, and cough syrup, started tessalon Code(s): R05.9 - COUGH, UNSPECIFIED (4) HLD (hyperlipidemia) Current Visit: Yes Status: Chronic Assessment & Plan: -continue statin Code(s): E78.5 - HYPERLIPIDEMIA, UNSPECIFIED (5) HTN (hypertension) Current Visit: Yes Status: Chronic Assessment & Plan: -stable continue home meds Code(s): I10 - ESSENTIAL (PRIMARY) HYPERTENSION (6) Type 2 diabetes mellitus Current Visit: Yes Status: Acute Assessment & Plan: -SSI/glargine -ADA diet -accuchecks ac/hs -A1c at 9.11 11/12/23 - uncontrolled -discussed the importance of good glycemic control for healing (7) Obesity (BMI 30-39.9) Current Visit: Yes Status: Acute Assessment & Plan: advised ADA diet and exercise control Code(s): E66.9 - OBESITY, UNSPECIFIED - Discharge Discharge Date: 11/30/23 Disposition: Home, Self-Care Condition: Stable Prescriptions: New levoFLOXacin [Levofloxacin] 750 mg PO DAILY 10 Days #10 tablet Continue Losartan/Hydrochlorothiazide [Losartan-Hctz 100-12.5 mg Tab] 1 tab PO DAILY Atorvastatin Calcium 20 mg PO DAILY Aspirin EC 81 mg [Ecotrin 81 mg] 81 mg PO DAILY Insulin Lispro [Humalog Kwikpen U-100] 50 unit SQ BIDWM Insulin Glargine,Hum.rec.anlog [Lantus] 50 unit SQ HS Semaglutide [Ozempic] 1 mg SQ WEEKLY Cholecalciferol (Vitamin D3) [Vitamin D3] 50 mcg PO DAILY Follow up with: KATHRINE MAHMOOD DPM [ACTIVE STAFF] - 12/04/23 1:30 pm IVAN MAGALLON MD [Primary Care Provider] - 12/04/23 10:45 am
[2023-11-30 11:52] VITALS: BP 128/66; PULSE 70; TEMP 97.9; O2SAT 96
--- NOTE | 2023-12-03 10:14 | PCM.NOTE ---
Date and Time: 12/03/23 1010 Subjective Assessment: POD # 5 doing well. Ambulating with PT with walker with minimal pain. 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 Seemingly asymptomatic at this time. Code(s): S82.871A - DISPLACED PILON FRACTURE OF RIGHT TIBIA, INIT FOR CLOS FX (2) Ankle pain, right Status: Acute Code(s): M25.571 - PAIN IN RIGHT ANKLE AND JOINTS OF RIGHT FOOT (3) Cellulitis Status: Acute Assessment & Plan: resolved. Code(s): L03.90 - CELLULITIS, UNSPECIFIED (4) Leukocytosis Status: Acute Code(s): D72.829 - ELEVATED WHITE BLOOD CELL COUNT, UNSPECIFIED (5) Sepsis Status: Acute (6) Type 2 diabetes mellitus Status: Acute (7) Osteomyelitis Status: Acute Assessment & Plan: bone biopsy obtained of right leg in areas of bone scan uptake to the RLE 4 different location for culture and biopsy Results returned demonstrating no evidence of acute OM Discussed bone stimulator and referral back to Dr. Carrera for reassessment of non-union. Oral abx outpatient for cellulitis approved Compression therapy recommended. Code(s): M86.9 - OSTEOMYELITIS, UNSPECIFIED
== END 2023-11-30 13:58 | disposition home or self-care (01) | DRG 872 ==
LOC: ED 18:00 → MED SURG 11-22 00:13 → OBSVTOIN 11-23 15:33
PROVIDERS: ADMIT Student in an Organized Health Care Education/Training Program; ATTEND Student in an Organized Health Care Education/Training Program
PROC: 2W1LX6Z Compression of Right Lower Extremity using Pressure Dressing (ICD-10-PCS; principal; 2023-11-23)
PROC: 05H733Z Insertion of Infusion Device into Right Axillary Vein, Percutaneous Approach (ICD-10-PCS; 2023-11-23)
PROC: 07DT0ZX Extraction of Bone Marrow, Open Approach, Diagnostic (ICD-10-PCS; 2023-11-24)
DX: A41.9 Sepsis, unspecified organism (principal); L03.115 Cellulitis of right lower limb; M86.9 Osteomyelitis, unspecified; D72.829 Elevated white blood cell count, unspecified; E11.9 Type 2 diabetes mellitus without complications; M25.571 Pain in right ankle and joints of right foot; S82.871D Displaced pilon fracture of right tibia, subsequent encounter for closed fracture with routine healing; I10 Essential (primary) hypertension; E78.5 Hyperlipidemia, unspecified; R50.9 Fever, unspecified; R00.0 Tachycardia, unspecified; R05.9 Cough, unspecified; E66.9 Obesity, unspecified; E87.6 Hypokalemia; R60.0 Localized edema; Z79.899 Other long term (current) drug therapy
CPT/HCPCS: 0241U; 29580; 36410; 36415; 71045; 73590; 73610; 73700; 76000; 76942; 78315; 80048; 80053; 80202; 81001; 82947; 83036; 83605; 83735; 84132; 85025; 85027; 87040; 87046; 87070; 87075; 87205; 93005; 93041; 93268; 93971; 94640; 94760; 96365; 96367; 99214; 99232; 99285; 20225; A9503; J1200; J1650; J1817; J2250; J2270; J2704; Q3014; A9270-GY; G0378; J3370

== ENCOUNTER 2024-06-18 06:49 | Day surgery (SDC) | payer OTHER ==
[2024-06-18] MEDS ORDERED: VANCOCIN INJECTION IV ONE ×2 (06:50→11:22)
[2024-06-18] MEDS ORDERED: HUMULIN R SQ ONE (06:50)
[2024-06-18 08:01] VITALS: RESP 18
[2024-06-18] MEDS ORDERED: NEURONTIN ONE (08:12)
[2024-06-18] MEDS ORDERED: TYLENOL EXTRA STRENGTH 500 MG ONE (08:12)
[2024-06-18] MEDS ORDERED: CEFAZOLIN 2 GM/100 ML NaCl 2 GM/100 ML IVPB IV ONE (08:12)
[2024-06-18] MEDS ORDERED: Decadron 4 MG ONE (08:12)
[2024-06-18] MEDS ORDERED: celeBREX 100 MG ONE (08:12)
[2024-06-18] MEDS ORDERED: Sodium Chloride 0.9% 1000 ML 1,000 ML ONE ×3 (08:12→13:18)
[2024-06-18 08:13] LABS: Absolute Neutrophil Ct (ANC) 1.98 x10^3/uL (1.78-5.38); BASOPHIL % 1.1 % (0.2-1.2); Basophil (Absolute #) 0.06 x10^3/uL (0.01-0.08); Eosinophil % 2.9 % (0.8-7.0); Eosinophil (Absolute #) 0.16 x10^3/uL (0.04-0.54); Hematocrit 42.6 % (40.1-51.0); Hemoglobin 14.5 g/dL (13.7-17.5); IMMATURE GRAN # 0.01 x10^3u/L (0.001-0.031); IMMATURE GRAN % 0.2 % (0.001-0.429); Lymphocyte (Absolute #) 2.66 x10^3/uL (1.32-3.57); Lymphocytes % 48.8 % (21.8-53.1); Mean Cell Volume 86.1 fL (79.0-92.2); Mean Corpuscular Hemoglobin 29.3 pg (25.7-32.2); Monocyte (Absolute #) 0.58 x10^3/uL (0.30-0.82); Monocytes % 10.6 % (5.3-12.2); Neutrophil % 36.4 % (34.0-67.9); Platelet Count 175 x10^3/uL (163-337); Red Blood Count 4.95 x10^6/uL (4.63-6.08); Red Cell Distribution Width 12.3 % (11.6-14.4); White Blood Count 5.5 x10^3/uL (4.23-9.07)
[2024-06-18] MEDS: CEFAZOLIN 2 GM/100 ML NaCl 2 GM/100 ML IVPB IV SCH (08:13)
[2024-06-18] MEDS: Sodium Chloride 0.9% 1000 ML 1,000 ML IV SCH (08:13)
[2024-06-18] MEDS: celeBREX 100 MG PO ONE (08:14)
[2024-06-18] MEDS: Decadron 4 MG PO ONE (08:14)
[2024-06-18] MEDS: NEURONTIN PO ONE (08:15)
[2024-06-18] MEDS: TYLENOL EXTRA STRENGTH 500 MG PO ONE (08:15)
[2024-06-18 08:26] LABS: ALBUMIN 4.4 g/dL (3.5-5.0); ANION GAP 16.2 MEQ/L (5-15); BILIRUBIN,TOTAL 0.8 mg/dL (0.2-1.3); Calcium 9.4 mg/dL (8.4-10.2); Creatinine 1 0.76 mg/dL (0.66-1.25); EST GLOMERULAR FILTRATION RATE 108.2 ML/MIN; Potassium 3.9 mmol/L (3.5-5.1); Total Protein 7.1 g/dL (6.3-8.2)
[2024-06-18] MEDS ORDERED: HUMALOG ONE (08:41)
[2024-06-18] MEDS: HUMALOG SQ ONE (08:42)
[2024-06-18] MEDS ORDERED: SUBLIMAZE 100 MCG/2 ML ONE (09:30)
[2024-06-18] MEDS ORDERED: Versed 2 MG/2 ML Injection ONE (09:30)
[2024-06-18] MEDS ORDERED: Xylocaine-Mpf 2% 5 Ml Vial ONE (09:33)
[2024-06-18] MEDS ORDERED: ROCURONIUM BROMIDE IV ONE ×3 (09:33→13:51)
[2024-06-18] MEDS ORDERED: propofoL IV ONE (09:33)
[2024-06-18] MEDS ORDERED: EXPAREL 133 MG/10 ML VIAL IJ ONE (09:36)
[2024-06-18] MEDS ORDERED: Marcaine Mpf 0.5% Vial 30 Ml ONE (09:36)
[2024-06-18] MEDS ORDERED: Ephedrine Sulfate 50 MG/ML ONE (11:36)
[2024-06-18] MEDS ORDERED: BRIDION 200MG/2ML IV ONE (14:32)
[2024-06-18] MEDS ORDERED: Zofran 4 MG/2 ML VIAL ONE (14:32)
--- NOTE | 2024-06-18 14:53 | XRAY ---
Indication: Right ankle hardware removal, tibiotalar arthrodesis, and possible autograph. Intraoperative fluoroscopy provided for 4 minutes 57 seconds. 39 digital spot images submitted for interpretation demonstrates removal tibial fixation plate/screws with single distal shaft screw remaining. Also talotibial arthrodesis with 3 fixation screws in situ. Correlate with intraoperative findings/report.
[2024-06-18] MEDS ORDERED: TORAdol 30 mg Injection ONE (15:33)
[2024-06-18 16:43] VITALS: TEMP 97.9
[2024-06-18 16:49] VITALS: BP 118/62; PULSE 89; O2SAT 95
--- NOTE | 2024-06-19 09:30 | XRAY ---
Four minutes and 57 seconds of fluoroscopy were used in surgery for a right ankle hardware removal, tibiotalar arthrodesis, and possible autograph.
--- NOTE | 2024-06-20 13:23 | OP ---
SURGERY DATE/TIME: 06/18/2024 [id number] PREOPERATIVE DIAGNOSES: 1) Painful retained hardware. 2) Nonunion of pilon fracture, right ankle. 3) Pilon fracture right ankle sequelae. 4) Difficulty with ambulation. 5) Pain of right ankle. POSTOPERATIVE DIAGNOSES: 1) Painful retained hardware. 2) Nonunion of pilon fracture, right ankle. 3) Pilon fracture right ankle sequelae. 4) Difficulty with ambulation. 5) Pain of right ankle. PROCEDURES: 1) Removal of hardware, extensive, multiple sites. 2) Arthrodesis of tibiotalar joint. SURGEON: Torito Rogers MD BARBER INSTRUCTOR: Michael Monteiro, BONG and Fina Cassidy, as well as Kim Young, Student Surgical [employer] Vehicle Inspector. ANESTHESIA: General plus a preoperative regional block. See Anesthesia report for details. HEMOSTASIS: A thigh tourniquet set to 320 mmHg for 120 minutes, dropped for 21 minutes and then reinflated for an additional 41 minutes. INJECTABLES: See Anesthesia report for details. MATERIALS: A 6.5 x 50, 6.5 x 56 and a 6.5 x 75 mm headless screw; bone marrow aspirate with 5 mL of bone Bonus Triad impregnated with vancomycin. INDICATIONS FOR PROCEDURE: The patient is a very pleasant, well-known patient to my service who presented after a traumatic accident where he fell from a height, resulting in a pilon fracture to his right ankle. Subsequently, the fracture was staged and external fixator was utilized to span the fracture and then, later he was primarily fixed by Dr. Carrera out in [place], [place]. Dr. Carrera did a spectacular job. 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 Patient has been managing this issue for approximately 1 year now and at this time, wishes to proceed with something definitive. Bone biopsies were obtained on an episode of cellulitis several months ago, demonstrating no sign of bone infection. The objective of today's operation is to significantly reduce pain and improve patient's function. At baseline his pain is a 4 or 5 and at its worst can get to 10. However, patient is looking for a definitive. We did talk about the possibility of possible dynamization; however, this is not definitive and given the long-term success of satisfied patients after a pilon fracture, we decided to go the route of arthrodesis in order to better improve his function and patient may be able to continue working without significant pain being a limiting factor. From that standpoint, patient has been aware of all risks, complications and benefits of surgical intervention at this time, including but not limited to infection, hematoma, seroma, possibility of delayed wound healing, non-wound healing, possibility of nonunion, delayed union, possibility of irritating hardware and possible need for removal of hardware at a later date. No guarantees were provided as to the outcome of surgical intervention. Plenty of time was allowed for the patient to ask questions, which were answered to his and his 's apparent satisfaction. It is at this time we decided to proceed. DESCRIPTION OF PROCEDURE AND FINDINGS: Patient was brought into the PACU prior to the procedure and provided a popliteal and saphenous block. See Anesthesia report for details. Following this, the patient was brought in the operating room and placed on the operating room table in the supine position. General anesthesia was administered. A well-padded thigh tourniquet was applied and the tourniquet pressure was set to 320 mmHg. The right lower extremity was prepped and draped in a typical sterile fashion and lowered onto the surgical field. At this time, a curvilinear incision was made starting 1 cm lateral to the anterior tibial crest and then, curving over the ankle joint, down the insertion of the tibialis anterior tendon. Through this plane, very careful dissection was performed to make sure that we were staying medial to the tibialis anterior, which was reflected carefully utilizing ribbon retractors, as well as Senns to gain access to the anterior aspect of the tibia. From that standpoint, the hardware has significant amount of scar tissue that required debridement prior to proceeding with removal. Hardware was removed. This portion of the procedure, given the amount and the scope of the hardware, was deemed to be extensive. From that standpoint, the hardware at the anterior aspect of the tibial plafond was removed and the incision was deepened in a medial plane in order to remove the medial plate. Percutaneous incisions were made medially to remove the plate at this point. A significant amount of effort went into removal of the plate due to significant soft tissue adhesions. Once this was removed, attention was directed to the medial malleolus where the medial malleolar screw was then removed. Inspection of the joint at this time took place after debriding any soft tissue or scar tissue from the anterior aspect. Given the degree of the injury and the energy that was placed into the trauma, it was expected that there was some joint irregularity. There was aspects of the joint irregularity that was not captured on the CT scan, mainly the anterolateral portion of the tibiotalar joint was approximately 4 mm depressed into the joint, causing scuffing of the talar dome, which eroded the cartilage there. Once this was assessed, decision was made to check for the cysts where the punch portion of the pilon fracture reduction was removed and the depth of the cyst was assessed. This was no larger than 2 cm so the decision was made to utilize allograft rather than harvesting the patient's autograft from his proximal tibia. From that standpoint, a power rasp was utilized to resect the remaining cartilage off of both sides. This was done in conjunction with curettes, rongeurs and a Honey Mike. Once this was sufficient, copious amounts of sterile saline through a Pulsavac was utilized to flush the surgical site of any remaining cartilage. A 2 mm drill was utilized to fenestrate the surface to increase vascularity through this site, as well as curved osteotome and mallet was utilized to increase the surface area. Once this was performed, this was checked under fluoroscopic guidance demonstrating significant reduction in the joint space and good [id number] contact. Decision at this time was made to proceed with fixation where a tripod technique was utilized. A 6.5 x 7.5 was utilized for the posterior to anterior screw. A 6.5 x 56 was utilized for the anterior to posterior screw and then, a 6.5 x 50 headless compression screw was utilized from the medial malleolus to the lateral process of the talus. Once the fixation was in place, stress testing was deemed to be adequate. The screws did have a significant bite to them and position was assessed to be excellent as loaded with a footplate at 90 degrees relative to the patient's tibia. From that standpoint, all incisions were cleansed with copious amounts of sterile saline. The capsule at the anterior aspect of the ankle was then repaired utilizing 2-0 Vicryl. A 4-0 Monocryl was utilized to coapt the subcutaneous skin in a simple interrupted buried-type fashion and then 3-0 nylon was utilized in an either simple interrupted or a horizontal mattress-type fashion, coapting the skin edges in an everted-type fashion. Once this was performed, the leg was cleansed with sterile saline and dried. A dressing consisting of iodine, Adaptic, 4 x 4, Kerlix, ABD and a well-padded posterior splint was applied and secured with Bruce. Patient was then reversed from anesthesia and returned to the postoperative anesthesia care unit with vital signs stable and vascular status intact. Patient handled the anesthesia, as well as the procedure without significant complication. Postoperative orders as indicated in the patient's discharge chart.
== END 2024-06-18 17:16 | disposition home or self-care (01) ==
LOC: SDC 06:49
PROVIDERS: ATTEND Podiatrist Foot & Ankle Surgery
DX: T84.84XA Pain due to internal orthopedic prosthetic devices, implants and grafts, initial encounter (principal); S82.871K Displaced pilon fracture of right tibia, subsequent encounter for closed fracture with nonunion; M25.571 Pain in right ankle and joints of right foot; R26.2 Difficulty in walking, not elsewhere classified; E11.9 Type 2 diabetes mellitus without complications; I10 Essential (primary) hypertension
CPT/HCPCS: 20680; 27871; 36415; 73610; 76000; 76937; 80053; 82947; 83036; 85025; 93005; C1713; C1762; J0666; J0690; J1815; J1817; J1885; J2250; J2405; J2704; J3010; J3370; A9270-GY

== ENCOUNTER 2025-02-05 07:54 | Day surgery (SDC) | payer OTHER ==
[2025-02-05] MEDS ORDERED: Sodium Chloride 0.9(Preservative Free) 10 ML IJ ONE (07:55)
[2025-02-05] MEDS ORDERED: propofoL IV ONE (09:52)
[2025-02-05] MEDS ORDERED: Xylocaine-Mpf 2% 5 Ml Vial ONE (09:53)
[2025-02-05] MEDS ORDERED: Lactated Ringers 1,000 ML IV ONE (10:06)
--- NOTE | 2025-02-05 11:46 | XRAY ---
Indication: Right L3-L5 transforaminal TAWANA. Intraoperative fluoroscopy provided for 23 seconds. 4 digital spot image submitted for interpretation demonstrates posterior needle tips projecting over expected right L3 and L4 nerve roots. Small amount of contrast injected for needle tip placement. Correlate with intraoperative findings/report.
--- NOTE | 2025-02-05 12:34 | XRAY ---
23 seconds of fluoroscopy was used in surgery for a right L3-L5 transforaminal TAWANA.
== END 2025-02-05 10:28 | disposition home or self-care (01) ==
LOC: SDC-PAIN 07:54
PROVIDERS: ATTEND Psychiatry & Neurology Pain Medicine
DX: M54.16 Radiculopathy, lumbar region (principal); E11.9 Type 2 diabetes mellitus without complications